=== PATIENT | male | born 1945 | race Caucasian/White ===

== ENCOUNTER 2017-03-08 19:20 | Emergency (ER) | payer MEDICARE, OTHER ==
[~2017-03-08] VITALS: Ht 180.3 cm; Wt 126.5 kg
[2017-03-08] MEDS ORDERED: PRAD75CA3 PO (19:40)
[2017-03-08] MEDS ORDERED: LISI40TAB PO (19:40)
[2017-03-08] MEDS ORDERED: TERA2CAP3 PO (19:40)
[2017-03-08] MEDS ORDERED: METF10004 PO (19:40)
[2017-03-08] MEDS ORDERED: ATOR80TA59 PO (19:40)
[2017-03-08] MEDS ORDERED: GLIP10TA6 PO (19:40)
[2017-03-08] MEDS ORDERED: FOLI1TAB4 PO (19:40)
[2017-03-08] MEDS ORDERED: CARV25TA PO (19:40)
[2017-03-08] MEDS ORDERED: PANTOPRAZOLE 40MG TAB (PROTONIX) PO ONE (20:15)
[2017-03-08] MEDS ORDERED: ASPIRIN 325 MG TAB PO ONE (20:15)
[2017-03-08] MEDS ORDERED: GI COCKTAIL 50ML BTL(HYOSCYAMINE/MAALOX/LIDOCAINE VISCOUS)(1:3:1) PO ONE (20:15)
[2017-03-08 20:20] LABS: BASO % 0.3 % (0.0-1.0); EOS # 0.3 K/mm3 (0.0-0.50); EOS % 4.3 % (0.0-3.0); LARGE UNSTAINED CELL # 0.1 K/mm3 (0.0-0.4); LARGE UNSTAINED CELL % 1.9 % (0.0-4.0); LYMPH # 0.6 K/mm3 (1.5-4.5); LYMPH % 7.9 % (24.0-44.0); MEAN CORPUSCULAR HEMOGLOBIN 29.3 pg (27.0-33.0); MEAN CORPUSCULAR HGB CONC 33.4 g/dl (32.0-36.5); MEAN CORPUSCULAR VOLUME 87.6 fl (80.0-96.0); MONO # 0.4 K/mm3 (0.0-0.8); MONO % 5.6 % (0.0-5.0); NEUTROPHILS # 5.9 K/mm3 (1.8-7.7); PLATELET COUNT, AUTOMATED 243 k/mm3 (150-450); RED CELL DISTRIBUTION WIDTH 13.3 % (11.5-14.5); WHITE BLOOD COUNT 7.3 K/mm3 (4.0-10.0)
[2017-03-08 20:31] LABS: INR 1.48
[2017-03-08 20:34] LABS: ALBUMIN 3.5 GM/DL (3.2-5.2); ALBUMIN/GLOBULIN RATIO 0.78 (1.00-1.93); ALKALINE PHOSPHATASE 87 U/L (45-117); ALT/SGPT 27 U/L (12-78); ANION GAP 10 MEQ/L (8-16); AST/SGOT 17 U/L (15-37); BILIRUBIN,DIRECT 0.2 MG/DL (0.0-0.2); BILIRUBIN,TOTAL 0.7 MG/DL (0.2-1.0); BLOOD UREA NITROGEN 14 MG/DL (7-18); CALCIUM LEVEL 8.8 MG/DL (8.8-10.2); CARBON DIOXIDE LEVEL 26 MEQ/L (21-32); CHLORIDE LEVEL 100 MEQ/L (98-107); CREATININE FOR GFR 1.16 MG/DL (0.70-1.30); FREE T4 1.19 NG/DL (0.76-1.46); GLOMERULAR FILTRATION RATE > 60.0 (>49); GLUCOSE, FASTING 145 MG/DL (80-110); POTASSIUM SERUM 3.7 MEQ/L (3.5-5.1); SODIUM LEVEL 136 MEQ/L (136-145)
[2017-03-08] MEDS ORDERED: ISOVUE-370 76% 100ML VIAL (Q9967) As Ordered ONE (21:33)
--- NOTE | 2017-03-08 22:07 | ECGEPIP ---
Stationary ECG Study [facility] - ED Test Date: 2017-03-08 Pat Name: CHRISTIANO BOBO Department: Room: - Gender: M Assistant Prosecuting Attorney: VickB: 1945 Requested By: LATIA COSBY Order Number: [id number] Reading MD: Romulo Phillips Measurements Intervals [place] Rate: 97 P: [place]: 0 QRS: -4 QRSD: 85 T: -10 QT: 330 QTc: 419 Interpretive Statements ATRIAL FIBRILLATION WITH ABERRANT CONDUCTION OR VENTRICULAR PREMATURE COMPLEXES INFERIOR MYOCARDIAL INFARCTION, OF INDETERMINATE AGE NO PRIORS Electronically Signed On 03-08-2017 22:07:18 EDT by Romulo Phillips
--- NOTE | 2017-03-08 22:40 | REPUSA ---
CT angiogram of the chest Clinical statement: Chest pain. Technique: Multiple axial CT images were obtained from the thoracic inlet through the upper abdomen a fter a bolus administration of nonionic intravenous contrast. Coronal and sagittal reconstructions we re also obtained. No comparison is available. Findings: The pulmonary arteries are well-opacified with contrast, with no intraluminal filling defec ts to suggest embolism. The thoracic aorta is unremarkable. Thyroid gland is within normal limits. Th ere is no thoracic lymphadenopathy. There are no pericardial or pleural effusions. The lungs are maryam r. Limited imaging of the upper abdomen is unremarkable. There are no suspicious osseous lesions. Impression: Unremarkable CT examination of the chest. No evidence of pulmonary embolism.
[2017-03-09] MEDS ORDERED: GI COCKTAIL 50ML BTL(HYOSCYAMINE/MAALOX/LIDOCAINE VISCOUS)(1:3:1) PO ONE (00:15)
[2017-03-09] MEDS ORDERED: PRIL20CA9 PO (01:28)
[2017-03-09 01:52] VITALS: BP 152/70
--- NOTE | 2017-03-09 07:23 | REP ---
Portable chest, single AP view, 08:14 p.m.: There are no comparisons. Four films are clear. Cardiac size is borderline enlarged. The kt, mediastinum, and bony thorax are unremarkable. Impression: There are no acute cardiopulmonary findings. Cardiac size is borderline enlarged. Signed by Bright Mars MD 03/09/2017 07:14 A
--- NOTE | 2017-03-09 08:28 | ECGEPIP ---
Stationary ECG Study [facility] - ED Test Date: 2017-03-08 Pat Name: ERICKA BOBO Department: Room: - Gender: M Punch Hand: : 1945 Requested By: LATIA COSBY Order Number: [id number] Reading MD: Hoa De La Rosa Measurements Intervals [place] Rate: 86 P: [place]: 0 QRS: 3 QRSD: 77 T: -10 QT: 331 QTc: 397 Interpretive Statements ATRIAL FIBRILLATION SEPTAL MYOCARDIAL INFARCTION, PROBABLY OLD POSSIBLE INFERIOR MYOCARDIAL INFARCTION, PROBABLY OLD DECREASED RATE 03/08/17 Electronically Signed On 03-09-2017 8:27:59 EDT by Hoa De La Rosa
== END 2017-03-09 01:54 | disposition home or self-care (01) ==
LOC: M ED 19:20
DX: K21.9 Gastro-esophageal reflux disease without esophagitis (principal); I48.91 Unspecified atrial fibrillation; E11.9 Type 2 diabetes mellitus without complications; I10 Essential (primary) hypertension; E78.5 Hyperlipidemia, unspecified; Z79.899 Other long term (current) drug therapy
CPT/HCPCS: 36415; 71010; 71275; 80048; 80076; 82550; 82553; 83690; 83880; 84439; 84443; 84484; 85025; 85610; 85730; 93005; 93041; 94760; 99285; Q9967

== ENCOUNTER → 2019-06-12 | Outpatient (REF) | payer MEDICARE, OTHER ==
[~2019-06-12] MED LIST: ATOR80TA59 PO; CARV25TA PO; FOLI1TAB11 PO; GLIP10TA6 PO; LISI40TA PO; METF10004 PO; PRAD75CA5 PO; PRIL20CA9 PO; TERA2CAP3 PO
[2019-06-12 16:02] LABS: BASO % 0.5 % (0.0-1.0); EOS # 0.5 10^3/uL (0.0-0.5); EOS % 5.8 % (0.0-3.0); HEMATOCRIT 26.8 % (42.0-52.0); LYMPH # 0.5 10^3/uL (1.5-5.0); LYMPH % 6.6 % (24.0-44.0); MEAN CORPUSCULAR HEMOGLOBIN 27.9 pg (27.0-33.0); MEAN CORPUSCULAR HGB CONC 29.9 g/dl (32.0-36.5); MEAN CORPUSCULAR VOLUME 93.4 fl (80.0-96.0); MONO # 0.7 10^3/uL (0.0-0.8); MONO % 8.7 % (0.0-5.0); NEUTROPHILS # 6.3 10^3/uL (1.5-8.5); NEUTROPHILS % 77.9 % (36.0-66.0); PLATELET COUNT, AUTOMATED 344 10^3/uL (150-450); RED BLOOD COUNT 2.87 10^6/uL (4.30-6.10); WHITE BLOOD COUNT 8.1 10^3/uL (4.0-10.0)
[2019-06-12 16:06] LABS: APPEARANCE, URINE CLEAR (CLEAR); BACTERIA, URINE AUTO NEGATIVE (NEGATIVE); BILIRUBIN, URINE AUTO NEGATIVE (NEGATIVE); BLOOD, URINE BLOOD NEGATIVE (NEGATIVE); COLOR, URINE YELLOW (YELLOW); GLUCOSE, URINE (UA) AUTO NEGATIVE (NEGATIVE); KETONE, URINE AUTO NEGATIVE (NEGATIVE); LEUKOCYTE ESTERASE, URINE AUTO NEGATIVE (NEGATIVE); NITRITE, URINE AUTO NEGATIVE (NEGATIVE); PROTEIN, URINE AUTO NEGATIVE (NEGATIVE); RBC, URINE AUTO 1 /HPF (0-3); SPECIFIC GRAVITY URINE AUTO 1.012 (1.002-1.035); SQUAMOUS EPITHELIAL CELL UR AU 0 /HPF (0-6); WBC, URINE AUTO 0 /HPF (0-3)
[2019-06-12 16:34] LABS: ALBUMIN 2.5 GM/DL (3.2-5.2); ALT/SGPT 36 U/L (12-78); BILIRUBIN,TOTAL 1.4 MG/DL (0.2-1.0); BLOOD UREA NITROGEN 23 MG/DL (7-18); CALCIUM LEVEL 8.6 MG/DL (8.8-10.2); CARBON DIOXIDE LEVEL 31 MEQ/L (21-32); CHLORIDE LEVEL 100 MEQ/L (98-107); CHOLESTEROL LEVEL 115 MG/DL (<200); CHOLESTEROL RISK RATIO 2.254 (<5); CREATININE FOR GFR 1.13 MG/DL (0.70-1.30); GLOMERULAR FILTRATION RATE > 60.0 (>42); GLUCOSE, FASTING 168 MG/DL (70-100); HDL CHOLESTEROL 51 MG/DL (>40); LDL CHOLESTEROL 50 MG/DL (<100); NON-HDL-C 64 MG/DL; SODIUM LEVEL 139 MEQ/L (136-145); TOTAL PROTEIN 7.4 GM/DL (6.4-8.2); TRIGLYCERIDES LEVEL 69 MG/DL (<150)
[2019-06-12 16:41] LABS: CREATININE, URINE 50.6 MG/DL; MALB URINE SIEMENS 18.5 MG/L; MAU/CREAT RATIO 36.5 MCG/MG (0.0-30.0)
[2019-06-12 16:50] LABS: HEMOGLOBIN A1c 7.2 %
[2019-06-14 15:38] LABS: TOTAL PROTEIN,RANDOM URINE 17.7 MG/DL (0.0-12.0)
[2019-06-14 16:47] LABS: ALBUMIN 2.6 GM/DL (3.2-5.2); BLOOD UREA NITROGEN 22 MG/DL (7-18); CALCIUM LEVEL 8.6 MG/DL (8.8-10.2); CARBON DIOXIDE LEVEL 30 MEQ/L (21-32); CHLORIDE LEVEL 101 MEQ/L (98-107); COMPLEMENT C3 157 MG/DL (90-180); COMPLEMENT C4 30 MG/DL (10-40); CREATININE FOR GFR 1.11 MG/DL (0.70-1.30); GLOMERULAR FILTRATION RATE > 60.0 (>42); GLUCOSE, FASTING 173 MG/DL (70-100); PHOSPHORUS LEVEL 3.3 MG/DL (2.5-4.9); SODIUM LEVEL 137 MEQ/L (136-145); TOTAL PROTEIN 7.4 GM/DL (6.4-8.2)
[2019-06-15 09:32] LABS: ALBUMIN 2.95 GM/DL (3.29-5.55); ALBUMIN % 39.9 % (55.8-66.1); ALPHA-1-GLOBULIN % 7.4 % (2.9-4.9); ALPHA-1-GLOBULINS 0.55 GM/DL (0.17-0.41); ALPHA-2-GLOBULINS 0.78 GM/DL (0.42-0.99); ALPHA-2-GLOBULINS % 10.6 % (7.1-11.8); BETA-1-GLOBULINS 0.47 GM/DL (0.28-0.60); BETA-1-GLOBULINS % 6.4 % (4.7-7.2); BETA-2-GLOBULINS 0.72 GM/DL (0.19-0.55); BETA-2-GLOBULINS % 9.7 % (3.2-6.5)
[2019-06-15 09:33] LABS: GAMMA GLOBULINS 1.92 GM/DL (0.65-1.58)
== END ==
LOC: M LAB REF 15:42
PROVIDERS: ATTEND Physician Assistant Medical
DX: E78.5 Hyperlipidemia, unspecified (principal); D63.8 Anemia in other chronic diseases classified elsewhere; E11.9 Type 2 diabetes mellitus without complications; N18.9 Chronic kidney disease, unspecified

== ENCOUNTER 2019-07-28 12:07 | Outpatient (RCR) | payer OTHER, MEDICARE ==
[2019-07-28] MEDS ORDERED: OMEP40CA97 PO (12:45)
[2019-07-28] MEDS ORDERED: D 202000 PO (12:45)
[2019-07-28] MEDS ORDERED: FOLI1TAB11 PO (12:45)
[2019-07-28] MEDS ORDERED: METO25TA4 PO (12:45)
[2019-07-28] MEDS ORDERED: ASPI81TA85 PO (12:45)
[2019-07-28] MEDS ORDERED: COLA100C5 PO (12:45)
[2019-07-28] MEDS ORDERED: NESI12.5 PO (12:45)
[2019-07-28] MEDS ORDERED: SILD25TA2 PO (12:45)
[2019-07-28] MEDS ORDERED: TERA2CAP3 PO (12:45)
[2019-07-28] MEDS ORDERED: FERR325T16 PO (12:45)
[2019-07-28] MEDS ORDERED: WARF-23 PO (12:45)
[2019-07-28] MEDS ORDERED: ATOR40TA75 PO (12:45)
--- NOTE | 2019-07-28 13:46 | CARECAPL ---
Assessment Account #s: Initial Assessment General Diagnoses: AVR Date of event: May 18, 2019 Physician: Zhen Honeycutt Allergies: Coded Allergies: No Known Allergies (Unverified , 03/08/17) Date Entered Program: Jul 28, 2019 Risk strat for cardiac event: Moderate Exercise Date: Jul 28, 2019 Assessment: Initial Assessment Stages of change: Contemplate Exercise Prescription Plan to build strength and endurance through a monitored exercise program and provide education to lower the risk of cardiac disease Modalities initiated: Treadmill (will add), Nustep (will add), Arm Aerometer (will add), Dumbells (will add), Recumbent Bike (will add) Frequency: 2-3 Duration (Minutes) 30 - 60 minutes total exercise a day. 15 - 20 work intervals in minutes. PRN rest intervals in minutes. Functional Capacity Goal Sustained Metabolic Equivalent of a task (MET) goal of 2.5-3.5 for 15-20 minutes. Progression (METS) Increase by: .5 METS every: 2-3 sessions Angina with ex: No Target Heart Rate rest + 35-40 betablocker therapy Resistance Training: Yes Reps: 6-8 Hypertension: Yes Hypertension controlled with: Medication Resting 175/76 Meds see below Medications Scheduled Alogliptin Benzoate (Nesina), 12.5 MG PO DAILY, (Reported) Aspirin (Aspir 81), 81 MG PO DAILY, (Reported) Atorvastatin Calcium (Atorvastatin Calcium), 40 MG PO DAILY, (Reported) Cholecalciferol (Vitamin D3) (Vitamin D3), 2,000 UNIT PO DAILY, (Reported) Docusate Sodium (Colace), 100 MG PO DAILY, (Reported) Ferrous Gluconate (Ferrous Gluconate), 324 MG PO BID, (Reported) Folic Acid (Folic Acid), 1 MG PO DAILY, (Reported) Metformin HCl (Metformin HCl), 1,000 MG PO BID, (Reported) Metoprolol Tartrate (Metoprolol Tartrate), 25 MG PO BID, (Reported) Omeprazole (Omeprazole), 40 MG PO DAILY, (Reported) Sildenafil Citrate (Sildenafil Citrate), 25 MG PO ASDIRECTED, (Reported) Terazosin HCl (Terazosin HCl), 2 MG PO QHS, (Reported) Warfarin Sodium (Warfarin Sodium), 5 MG PO DAILY, (Reported) Discontinued Medications Atorvastatin Calcium (Atorvastatin Calcium), 80 MG PO DAILY, (Reported) Discontinued Reason: Pt states not taking Carvedilol (Carvedilol), 25 MG PO BID, (Reported) Discontinued Reason: Pt states not taking Dabigatran Etexilate Mesylate (Pradaxa), 75 MG PO DAILY, (Reported) Discontinued Reason: Pt states not taking Folic Acid (Folic Acid), 1 MG PO DAILY, (Reported) Discontinued Reason: Pt states not taking Glipizide (Glipizide), 10 MG PO BID, (Reported) Discontinued Reason: Pt states not taking Lisinopril (Lisinopril), 40 MG PO DAILY, (Reported) Discontinued Reason: Pt states not taking Omeprazole (Prilosec), 20 MG PO Q12H Discontinued Reason: Pt states not taking Terazosin HCl (Terazosin HCl), 4 MG PO DAILY, (Reported) Discontinued Reason: Pt states not taking Target Goals Individual exercise Rx (1) BP 140/90 or 130/80 if DM or CKD (1) Aerobic active 30+min 5 days per week (1) Nutrition Date: Jul 28, 2019 Assessment: Initial Assessment Stages of change: Contemplate Lipid- med/supplement lipitor Diabetes Diabetes: Yes HbA1c (%): 7.1 Diabetes medication metformin Monitor Blood Sugar at home: Yes Weight Management Weight (lbs): 222 Height (inches): 71 Waist Circumference (Inches): 42 BMI: 31 Special Diet: low salt, mediteranean diet, regular Vitamin/Supplements: Vitamin D Alcohol: none Diet Access Tool: Rate your plate Score: 55 Target goal LDL-C<100 if triglycerides are >200 Non-HDL-C should be <130 (1) LDL-C<70 for high risk patients (4) HbA1c<7% (1) BMI<25 Waist cir<40in M/<35in F (1) Education Date: Jul 28, 2019 Assessment: Initial Assessment Knowledge Test Score: 7 Stages of change: Contemplate Family Support: Yes Quit: >6 months (quit 1998) Intervention Referral to smoking cessation: No Individual education and couns: No Tobacco Adjunct: No Target Goals Complete cessation of tobacco use (1). Psychosocial Date: Jul 28, 2019 Assessment: Initial Assessment Psych Test (Initial/Discharge) Tool Used: Other Score: 0 Stages of change: action Intervention Physician Consult: No Physician Referral: No Target Goal Assess presence or absence of depression using a valid screening tool (1). Maximize coping skills (2). Positive support system (2). Patient/Program Goal Preventative Medication: Yes Aspirin, Yes Beta blockade, Yes Statin/OTR lipid Lowering Fall Risk Assess: No Provider Assessment Provider Assessment: Proceed with rehab Theresa Lazcano RN Jul 28, 2019 13:32
== END 2019-08-08 ==
LOC: M CR 12:07
PROVIDERS: ATTEND Student in an Organized Health Care Education/Training Program
DX: Z95.3 Presence of xenogenic heart valve (principal)

== ENCOUNTER → 2019-08-29 | Outpatient (CLI) | payer OTHER ==
[~2019-08-29] MED LIST changes: +ASPI81TA85 PO; +ATOR40TA75 PO; +COLA100C5 PO; +D 202000 PO; +FERR325T16 PO; +METO25TA4 PO; +NESI12.5 PO; +OMEP40CA97 PO; +SILD25TA2 PO; +WARF-23 PO
--- NOTE | 2019-08-30 02:57 | REP ---
Clinical: Evaluate for metastatic disease. Technique: 16 total views of the axial and appendicular osseous structures. Findings: Skull: AP and lateral views without focal abnormality. Cervical spine: AP and lateral views demonstrate moderate spondylosis without focal abnormality. Right/left humerus: AP views demonstrate degenerative changes at the shoulder and elbow without focal abnormality. Thoracic spine: AP and lateral views demonstrate degenerative changes without acute fracture / compression injury or subluxation and no obvious focal abnormality. Lumbar spine: AP and lateral views demonstrate moderate multilevel degenerative changes. Alignment maintained. No acute fracture / compression injury or subluxation. No focal abnormality. Pelvis: AP view demonstrates age-related degenerative changes without focal abnormality. Right/left femur: AP views demonstrate age-related degenerative changes at the hips and knee joints without focal abnormality. Impression: Multilevel degenerative changes noted. No evidence for pathologic lesion. Electronically Signed by Abiodun Lipscomb MD 08/30/2019 02:48 A
== END ==
LOC: M RAD 10:30
DX: D64.9 Anemia, unspecified (principal)

== ENCOUNTER → 2019-08-31 | Outpatient (REF) | payer OTHER ==
[2019-09-01 13:34] LABS: TOTAL PROTEIN,RANDOM URINE 19.1 MG/DL (0.0-12.0); URINE TOTAL PROTEIN 19.1 MG/DL (0-12)
[2019-09-05 02:02] LABS: TOTAL PROTEIN 24 HOUR URINE 233.9 MG/24HR (50-150); TOTAL VOLUME, URINE 1225 ML
== END ==
LOC: M LAB REF 12:53
PROVIDERS: ATTEND Internal Medicine Hematology & Oncology
DX: D64.9 Anemia, unspecified (principal)

== ENCOUNTER → 2019-09-26 | Outpatient (CLI) | payer OTHER ==
[~2019-09-26] MED LIST changes: +GASTROGRAFIN SOLUTION 30ML (Q9963) As Ordered ONE; +ISOVUE-370 76% 100ML VIAL (Q9967) As Ordered ONE
--- NOTE | 2019-09-26 11:01 | REP ---
Clinical: IgM monoclonal gammopathy read Technique: Axial contrast enhanced images from the thoracic inlet to the upper abdomen with coronal and sagittal re-formations using 100 ml Isovue 370 intravenous contrast material. Comparison: 03/08/2017. Findings: Moderate mediastinal and bilateral hilar adenopathy is appreciated. Precarinal lymph node measures 2.3 cm maximal diameter. Thoracic aorta, pulmonary vasculature and heart/pericardium are relatively normal atherosclerotic changes noted. No pericardial effusion. The lung gutiérrez demonstrate diffuse interstitial prominence along with subpleural fibrosis, mild bilateral circumferential pleural thickening and small right pleural effusion along with trace right basilar atelectasis. Musculoskeletal structures demonstrate degenerative changes without obvious acute focal abnormality. Impression: 1. Moderate mediastinal and hilar adenopathy. 2. Diffusely increased interstitial markings along with mild circumferential bilateral pleural thickening, small right pleural reaction and trace right atelectasis. Electronically Signed by Abiodun Lipscomb MD 09/26/2019 10:52 A
--- NOTE | 2019-09-26 11:05 | REP ---
Clinical: IgM monoclonal gammopathy. Technique: Axial contrast enhanced images from the lung bases to the pubic symphysis using oral (per protocol) and 100 ml Isovue 370 intravenous contrast material with coronal and sagittal re-formations. Findings: Mild hepatomegaly noted without focal hepatic lesion identified. Spleen, pancreas, gallbladder, bilateral adrenal glands and kidneys are essentially normal. 9 mm right renal cyst noted. The enteric system is without obstruction or acute inflammatory process. Normal terminal ileum and appendix identified in the right lower quadrant. Diffuse colonic and sigmoid diverticulosis noted without acute diverticulitis. Pelvis demonstrates normal bladder and age appropriate prostate/seminal vesicles. There is hazy edematous appearance to the central mesenteric fat with mildly prominent lymph nodes measuring up to approximately 11.6 mm. No abdominal pelvic mass lesion or ascites. No retroperitoneal or pelvic adenopathy noted. Atherosclerotic changes to the aorta and vasculature noted without aneurysm or dissection. Musculoskeletal structures demonstrate degenerative changes without focal osseous abnormality. Impression: 1. Mild hepatomegaly. 2. Hazy edematous changes to the central mesentery and few mildly prominent mesenteric lymph nodes up to 11.6 mm. 3. Diverticulosis. Electronically Signed by Abiodun Lipscomb MD 09/26/2019 10:56 A
== END ==
LOC: M RAD 07:43
PROVIDERS: ATTEND Internal Medicine Hematology & Oncology
DX: D47.2 Monoclonal gammopathy (principal)
CPT/HCPCS: 71260; 74178; Q9963; Q9967

== ENCOUNTER 2019-10-22 01:45 | Emergency (ER) | payer MEDICARE, OTHER ==
[~2019-10-22] VITALS: Ht 180.3 cm; Wt 100.0 kg
[~2019-10-22 01:45] MED LIST changes: -GASTROGRAFIN SOLUTION 30ML (Q9963) As Ordered ONE; -ISOVUE-370 76% 100ML VIAL (Q9967) As Ordered ONE
[2019-10-22 03:20] LABS: BASO % 0.5 % (0.0-1.0); EOS % 0.6 % (0.0-3.0); HEMOGLOBIN 10.1 g/dl (13.5-17.5); LYMPH # 0.3 10^3/uL (1.5-5.0); LYMPH % 4.8 % (24.0-44.0); MEAN CORPUSCULAR HEMOGLOBIN 27.9 pg (27.0-33.0); MEAN CORPUSCULAR HGB CONC 30.6 g/dl (32.0-36.5); MEAN CORPUSCULAR VOLUME 91.2 fl (80.0-96.0); MONO # 0.6 10^3/uL (0.0-0.8); MONO % 8.9 % (0.0-5.0); NEUTROPHILS # 5.7 10^3/uL (1.5-8.5); PLATELET COUNT, AUTOMATED 175 10^3/uL (150-450); RED BLOOD COUNT 3.62 10^6/uL (4.30-6.10); WHITE BLOOD COUNT 6.7 10^3/uL (4.0-10.0)
[2019-10-22 03:51] LABS: ALBUMIN 3.5 GM/DL (3.2-5.2); BILIRUBIN,DIRECT 2.2 MG/DL (0.0-0.2); BILIRUBIN,TOTAL 2.8 MG/DL (0.2-1.0)
[2019-10-22] MEDS ORDERED: ISOVUE-370 76% 100ML VIAL (Q9967) As Ordered ONE (04:00)
[2019-10-22] MEDS ORDERED: GI COCKTAIL 50ML BTL(HYOSCYAMINE/MAALOX/LIDOCAINE VISCOUS)(1:3:1) PO ONE (04:00)
--- NOTE | 2019-10-22 04:54 | REPVR ---
PROCEDURE INFORMATION: Exam: CT Abdomen And Pelvis With Contrast Exam date and time: 10/22/2019 3:55 AM Age: 74 years old Clinical indication: Abdominal pain; Epigastric; Additional info: Epigastric pain TECHNIQUE: Imaging protocol: Computed tomography of the abdomen and pelvis with intravenous contrast. Radiation optimization: All CT scans at this facility use at least one of these dose optimization techniques: automated exposure control; mA and/or kV adjustment per patient size (includes targeted exams where dose is matched to clinical indication); or iterative reconstruction. Contrast material: ISO; Contrast volume: 100 ml; Contrast route: AC; COMPARISON: CT ABD PELVIS W/O FOL BY WIT 09/26/2019 9:33 AM FINDINGS: Limitations: Left lateral abdominal wall is partially cut off the film. Lungs: Diffuse interlobular septal thickening. Pleural space: Mild right pleural effusion. Coronary arteries: Severe coronary artery calcification. Liver: Hypodense lesion in the left hepatic lobe which is not fully characterized measuring 5 mm. Gallbladder and bile ducts: Mild gallbladder wall thickening. No biliary ductal dilatation. Pancreas: Normal. No ductal dilation. Spleen: Normal. No splenomegaly. Adrenals: Normal. No mass. Kidneys and ureters: Normal. No hydronephrosis. Stomach and bowel: Copious stool in the colon. Colonic diverticulosis without diverticulitis. No abnormal bowel dilatation. No abnormal bowel wall thickening. Appendix: Appendix is normal. Intraperitoneal space: Small free fluid in the pelvis. Mild haziness of the mesentery. Free air. Vasculature: No aortic aneurysm. Severe calcified atherosclerotic disease. Lymph nodes: Unremarkable. No enlarged lymph nodes. Bladder: Unremarkable as visualized. Reproductive: Prostate is normal in size. Bones/joints: Moderate degenerative spine. No acute fracture. Mild degenerative changes of the right hip. Mild degenerative changes of the left hip. Soft tissues: There is dependent subcutaneous edema. Small umbilical hernia containing fat. There is no evidence of strangulation. IMPRESSION: 1. Mild gallbladder wall thickening. Hepatic venous congestion versus cholecystitis. 2. Small hypodense lesion in the left hepatic lobe. Too small to characterize. No change from prior. In a low-risk patient, this lesion is most likely to be benign and no further follow-up is recommended. In a high-risk patient, recommend follow-up MRI in 3-6 months (or earlier if warranted by the patient's specific clinical circumstances). 3. Mild haziness of the mesentery. Unknown etiology. Unchanged from prior. 4. Small free fluid in the pelvis. 5. Diffuse interlobular septal thickening in the lungs. Suspect pulmonary edema. Unchanged from prior. 6. Mild right pleural effusion. Unknown etiology. 7. No findings as described. Electronically signed by: Homa Morales On 10/22/2019 04:53:42 AM
--- NOTE | 2019-10-22 04:58 | REPVR ---
PROCEDURE INFORMATION: Exam: US Abdomen Limited, Right Upper Quadrant Exam date and time: 10/22/2019 4:24 AM Age: 74 years old Clinical indication: Abdominal pain; Epigastric; Additional info: Epigastric pain, elevated liver enzymes TECHNIQUE: Imaging protocol: Real-time ultrasound of the abdomen with image documentation. Examination was focused on the right upper quadrant. COMPARISON: CT ABD/PEL W/IV CONTRAST ONLY 10/22/2019 4:04 AM FINDINGS: Liver: Hepatomegaly. Liver measures approximately 18 cm in the midclavicular plane. No hepatics masses evident. Gallbladder: Diffuse gallbladder wall thickening. Negative Estrada sign. Sludge in the gallbladder. Nonshadowing polypoid lesion in the anterior gallbladder wall measuring 4.1 mm. No shadowing stones. Common bile duct: CBD measures 8.1 mm in diameter. Pancreas: Not visualized. Right kidney: No right hydronephrosis. Right kidney measures 15.3 cm in length. No renal masses. Intraperitoneal space: No free fluid. IMPRESSION: 1. Diffuse gallbladder wall thickening with sludge. Possible portal venous hypertension acalculous cholecystitis. 2. Polypoid lesion in the anterior gallbladder wall. Polyp versus sludge ball. 3. Hepatomegaly. Electronically signed by: Homa Morales On 10/22/2019 04:57:48 AM
[2019-10-22] MEDS ORDERED: LEVS0.124 SL ×2 (05:45→06:34)
[2019-10-22 06:00] VITALS: BP 166/86
[2019-10-22] MEDS ORDERED: HYOSCYAMINE SULFATE 0.125 MG SUBL TABLET PO ONE (06:00)
--- NOTE | 2019-10-22 14:42 | ED PDOC ---
Post-Departure Follow-Up [facility] faxed formal report of ct abd/p for fu Suyapa Abreu MD Oct 22, 2019 14:42
--- NOTE | 2019-10-22 14:43 | ED PDOC ---
Post-Departure Follow-Up [facility] also faxed to [facility] for fu Suyapa Abreu MD Oct 22, 2019 14:43
== END 2019-10-22 06:23 | disposition home or self-care (01) ==
LOC: M ED 01:45
DX: K80.50 Calculus of bile duct without cholangitis or cholecystitis without obstruction (principal); R11.0 Nausea; E11.9 Type 2 diabetes mellitus without complications; I11.9 Hypertensive heart disease without heart failure; I25.10 Atherosclerotic heart disease of native coronary artery without angina pectoris; Z79.899 Other long term (current) drug therapy; Z79.84 Long term (current) use of oral hypoglycemic drugs; Z79.82 Long term (current) use of aspirin; Z79.01 Long term (current) use of anticoagulants
CPT/HCPCS: 74177; 76705; 80047; 80076; 83690; 85025; 93041; 99284; Q9967

== ENCOUNTER 2020-01-12 11:43 | Inpatient (IN) | payer OTHER, MEDICARE ==
[~2020-01-12] VITALS: Ht 177.8 cm; Wt 93.1 kg
[~2020-01-12 11:43] MED LIST changes: +LEVS0.124 SL
[2020-01-12 12:26] LABS: BASO # 0.1 10^3/uL (0.0-0.2); BASO % 1.2 % (0.0-1.0); EOS # 0.5 10^3/uL (0.0-0.5); EOS % 6.6 % (0.0-3.0); HEMATOCRIT 29.5 % (42.0-52.0); HEMOGLOBIN 9.2 g/dl (13.5-17.5); LYMPH # 0.5 10^3/uL (1.5-5.0); LYMPH % 6.3 % (24.0-44.0); MEAN CORPUSCULAR HEMOGLOBIN 28.6 pg (27.0-33.0); MEAN CORPUSCULAR HGB CONC 31.2 g/dl (32.0-36.5); MEAN CORPUSCULAR VOLUME 91.6 fl (80.0-96.0); MONO # 0.7 10^3/uL (0.0-0.8); MONO % 8.5 % (0.0-5.0); NEUTROPHILS # 5.9 10^3/uL (1.5-8.5); PLATELET COUNT, AUTOMATED 204 10^3/uL (150-450); RED BLOOD COUNT 3.22 10^6/uL (4.30-6.10); WHITE BLOOD COUNT 7.6 10^3/uL (4.0-10.0)
[2020-01-12] MEDS ORDERED: FUROSEMIDE 40MG/4ML VIAL (J1940) IV ONE (12:45)
[2020-01-12 12:59] LABS: BLOOD UREA NITROGEN 12 MG/DL (7-18); CALCIUM LEVEL 8.2 MG/DL (8.8-10.2); CARBON DIOXIDE LEVEL 27 MEQ/L (21-32); CHLORIDE LEVEL 105 MEQ/L (98-107); CK-MB VALUE MASS < 1.0 NG/ML (<3.6); CPK CREATINE PHOSPHOKINASE 42 U/L (39-308); CREATININE FOR GFR 0.99 MG/DL (0.70-1.30); GLOMERULAR FILTRATION RATE > 60.0 (>42); GLUCOSE, FASTING 113 MG/DL (70-100); MB/CK RELATIVE INDEX 2.38 (< OR =4); NT-PRO BNP 8840 PG/ML (<125); POTASSIUM SERUM 3.6 MEQ/L (3.5-5.1); SODIUM LEVEL 139 MEQ/L (136-145); TROPONIN I < 0.02 NG/ML (< 0.10)
[2020-01-12] MEDS ORDERED: METO50TA7 PO (13:14)
[2020-01-12] MEDS ORDERED: TEMO0.0517 TOP (13:14)
[2020-01-12] MEDS ORDERED: WARF-18 PO ×2 (13:14)
[2020-01-12] MEDS ORDERED: ATOR80TA59 PO (13:14)
[2020-01-12] MEDS ORDERED: SILD50TA8 PO (13:14)
[2020-01-12] MEDS ORDERED: ACET1TAB55 PO (13:14)
[2020-01-12] MEDS ORDERED: ASCO500T PO (13:14)
[2020-01-12] MEDS ORDERED: VITAD1000T PO (13:15)
[2020-01-12] MEDS ORDERED: DEXTROSE 50% 50 ML SYRINGE IV PRN (14:00)
[2020-01-12] MEDS ORDERED: GLUCOSE 4GM CHEW TABLET PO PRN (14:00)
[2020-01-12] MEDS ORDERED: GLUCAGON INJ 1MG VIAL SC PRN (14:00)
[2020-01-12 14:14] LABS: INR 2.51; PROTHROMBIN TIME 26.9 SECONDS (11.8-14.0)
--- NOTE | 2020-01-12 14:43 | REP ---
CHEST, SINGLE VIEW: Single view of the chest is performed. There is moderate cardiomegaly. Mediastinal silhouette is unchanged since 03/08/2017. There are diffuse bilateral infiltrates. This may represent pulmonary edema. There may be small pleural effusions. Electronically Signed by Bright Caldwell MD 01/15/2020 09:57 P
--- NOTE | 2020-01-12 14:53 | HPEPDOC ---
General Date of Admission Jan 12, 2020 at 13:42 Date of Service: Jan 12, 2020 Chief Complaint The patient is a 74-year-old male admitted with a reason for visit of Anemia,Chf Exacerbation. Source: Patient, RN/MD History of Present Illness 74 year old male with PMH of TAVR in 2019, chronic Anemia, Vit B12 def, Iron de, IgM lamda gammopathy, ? Afib on coumadin, Hypertension, Hyperlipidemia, Diabetes presented to the ED for Shortness of breath. He has been having progressively increasing shortness of breath for the past 1 week and he has also noticed that his legs have been swollen more than usual. Breathing is worse on exertion. Denied any chest pain / pressure. he does have some cough intermittently. He went to his [facility] at [facility] today had a CXR done and was advised to come to the ED. Here CXR consistent with CHF pattern. He isw admitted for CHF exacerbation. Home Medications Scheduled Alogliptin Benzoate (Nesina) 12.5 Mg Tablet, 12.5 MG PO DAILY, (Reported) Ascorbic Acid (Ascorbic Acid) 500 Mg Tablet, 500 MG PO DAILY, (Reported) Aspirin (Aspir 81) 81 Mg Tablet.dr, 81 MG PO DAILY, (Reported) Atorvastatin Calcium (Atorvastatin Calcium) 80 Mg Tablet, 40 MG PO QHS, (Reported) Cholecalciferol (Vitamin D3) (Vitamin D3) 1,000 Unit Tablet, 2,000 UNITS PO DAILY, (Reported) Docusate Sodium (Colace) 100 Mg Capsule, 100 MG PO DAILY, (Reported) Ferrous Gluconate (Ferrous Gluconate) 324 Mg Tablet, 324 MG PO BID, (Reported) Folic Acid (Folic Acid) 1 Mg Tablet, 1 MG PO DAILY, (Reported) Metformin HCl (Metformin HCl) 1,000 Mg Tab, 1,000 MG PO BIDWM, (Reported) Metoprolol Tartrate (Metoprolol Tartrate) 50 Mg Tablet, 50 MG PO BID, (Reported) Omeprazole (Omeprazole) 40 Mg Capsule.dr, 40 MG PO DAILY, (Reported) Terazosin HCl (Terazosin HCl) 2 Mg Capsule, 4 MG PO QHS, (Reported) Warfarin Sodium (Warfarin Sodium) 2.5 Mg Tablet, 5 MG PO 5XW, (Reported) SUN/MON/WED/FRI/SAT AT 1700 Warfarin Sodium (Warfarin Sodium) 2.5 Mg Tablet, 7.5 MG PO 2XW, (Reported) TUE/THURS AT 1700 Scheduled PRN Acetaminophen (Acetaminophen) 325 Mg Tablet, 650 MG PO Q4H PRN for PAIN, (Reported) Clobetasol Propionate (Temovate) 15 Gm Oint...g., 1 APLCT TOP BID PRN for ITCHING, (Reported) APPLY TO ELBOW/BUTOCKS Sildenafil Citrate (Sildenafil Citrate) 50 Mg Tablet, 25 MG PO ASDIRECTED PRN for ERECTILE DYSFUNCTION, (Reported) Allergies Coded Allergies: No Known Allergies (Unverified , 10/22/19) Past Medical History Medical History s/p TAVR in May 2019, chronic Anemia, Vit B12 def, Iron de, IgM lamda gammopathy, Afib on coumadin, Hypertension, Hyperlipidemia, Diabetes, Gerd Surgical History TAVR, left knee growth removal at age 9, anal fissure surgery many years ago. Family History Significant Family History: Diabetes (juvenile Dm in 1 brother), Heart disease (brothers), Vascular disease (in Brother) Social History * Smoker: Denies Alcohol: Denies Drugs: denies A-FIB/CHADSVASC A-FIB History Current/History of A-Fib/PAF?: Yes Current PO Anticoag Therapy: Yes Review of Systems Constitutional: Denies: Chills, Fever, Night Sweats Eyes: Denies: Pain, Vision change ENT: Denies: Head Aches, Ear Pain, Dysphagia Skin: Denies: Rash, Lesions, Breakdown Pulmonary: Reports: Dyspnea, Cough Cardiovascular: Reports: Edema Gastrointestinal: Denies: Nausea, Vomiting, Abdominal Pain, Diarrhea Genitourinary: Reports: Frequency; Denies: Dysuria, Incontinence, Retention Hematologic: Denies: Bruising, Bleeding Excessively Musculoskeletal: Denies: Neck Pain, Back Pain, Joint Pain, Muscle Pain, Spasms Physical Examination General Exam: Positive: Alert, Cooperative, No Acute Distress Eye Exam: Positive: PERRLA, Conjunctiva & lids normal, EOMI; Negative: Sclera icteric ENT Exam: Positive: Atraumatic, Mucous membr. moist/pink, Pharynx Normal Neck Exam: Positive: Supple, JVD Chest Exam: Positive: Other (bilateral crackles extending up to the mid chest at sarah back) Heart Exam: Positive: Rate Normal, Regular Rhythm, Normal S1, Normal S2 Telemetry: Positive: No significant arrhythmia Abdomen Exam: Positive: Normal bowel sounds, Soft; Negative: Tenderness, Hepatospenomegaly Extremity Exam: Positive: Edema (3+); Negative: Clubbing, Cyanosis Skin Exam: Positive: Nl turgor and temperature; Negative: Breakdown, Lesion Neuro Exam: Positive: Normal Speech, Strength at 5/5 X4 ext, Normal Tone Vital Signs Vital Signs Date Time Temp Pulse Resp B/P (MAP) Pulse Ox O2 Delivery O2 Flow Rate FiO2 01/12/20 13:58 92 85 01/12/20 13:01 150/65 (93) 01/12/20 12:19 Room Air 01/12/20 11:43 99.1 22 Laboratory Data Labs 24H Laboratory Tests 2 01/12/20 12:10: Prothrombin Time 26.9H, Prothromb Time International Ratio 2.51 01/12/20 12:14: Immature Granulocyte % (Auto) 0.4, Neutrophils (%) (Auto) 77.0H, Lymphocytes (%) (Auto) 6.3L, Monocytes (%) (Auto) 8.5H, Eosinophils (%) (Auto) 6.6H, Basophils (%) (Auto) 1.2H, Neutrophils # (Auto) 5.9, Lymphocytes # (Auto) 0.5L, Monocytes # (Auto) 0.7, Eosinophils # (Auto) 0.5, Basophils # (Auto) 0.1, Nucleated Red Blood Cells % (auto) 0.0, Anion Gap 7L, Glomerular Filtration Rate > 60.0, Lactic Acid Level 1.4, Calcium Level 8.2L, Total Creatine Kinase 42, Creatine Kinase MB < 1.0, Creatine Kinase MB Relative Index 2.38, Troponin I < 0.02, YB-Ine-G-Type Natriuretic Peptide 8840H, Thyroid Stimulating Hormone (TSH) 2.690 01/12/20 12:22: POC pH (Misc Panel) 7.445, POC Base Excess (Misc Panel) -2.0, POC Saturated Percent O2 (Misc) 91L, POC pO2 (Misc Panel) 57.0L, POC pCO2 (Misc Panel) 32.2L, POC HCO3 (Misc Panel) 22.1, POC Total CO2 (Misc Panel) 23.0 CBC/BMP Laboratory Tests 01/12/20 12:14 Microbiology Microbiology 01/12/20 Blood Culture, Received Pending 01/12/20 Blood Culture, Received Pending Assessment/Plan 74 year old male with PMH of TAVR in 2019, chronic Anemia, Vit B12 def, Iron def, IgM lamda gammopathy, Afib on coumadin, Hypertension, Hyperlipidemia, Diabetes presented to the ED for Shortness of breath. He has been having progressively increasing shortness of breath for the past 1 week and he has also noticed that his legs have been swollen more than usual. Breathing is worse on exertion. Denied any chest pain / pressure. he does have some cough intermittently. He went to his PMD at the [facility] today for a CXRas he was dyspniec for a week. After it was done he was advised to come to the ED. Here CXR consistent with CHF pattern. He was admitted for CHF exacerbation. CHF exacerbation Last echo from Jun 2019 at [facility] showed normal LV systolic function with EF of 60% to 65%. will get new echo. IV lasix, fluid restriction, 2 gm sodium diet, Daily weight , I/O Paroxysmal A fib now in sinus on Coumadin and metoprolol. will check INR Hypertension continue home meds metoprolol, asa. Diabetes hold metformin lispro sliding scale BPH terazosin GERD PPI Chronic anemia hh stable, may be a little lower due to hs fluid overload. follows with hematology Has Plasma cell dyscrasia, iron def and vit B12 def. Plan / VTE VTE Prophylaxis Ordered?: Yes LINDA WELCH MD Jan 12, 2020 14:53
[2020-01-12 16:40] VITALS: BP 148/67
[2020-01-12] MEDS: HumaLOG INSULIN (NovoLOG) PER UNIT SC SCH ×2 (17:42→20:42)
[2020-01-12] MEDS: WARFARIN SOD 5MG TAB PO SCH (17:42)
[2020-01-12] MEDS: FUROSEMIDE 40MG/4ML VIAL (J1940) IV SCH (20:40)
[2020-01-12] MEDS: TERAZOSIN 1 MG CAP PO SCH (20:41)
[2020-01-12] MEDS: METOPROLOL TART 50 MG TAB PO SCH (20:41)
[2020-01-12] MEDS: FERROUS GLUCONATE 324 MG TAB PO SCH (20:41)
[2020-01-12] MEDS: ATORVASTATIN 20 MG TAB PO SCH (20:41)
[2020-01-12] MEDS: DOCUSATE SODIUM 100 MG CAP PO SCH (20:41)
[2020-01-12 22:00] VITALS: BP 138/62
[2020-01-13 05:16] VITALS: BP 134/60
[2020-01-13] MEDS: FUROSEMIDE 40MG/4ML VIAL (J1940) IV SCH ×3 (05:19→21:02)
[2020-01-13 06:00] VITALS: BP 129/64
--- NOTE | 2020-01-13 06:26 | ECGEPIP ---
[facility] - ED Test Date: 2020-01-12 Pat Name: CHRISTIANO BOBO Department: Room: [place] [address] Gender: Male Enrichment Assistant: angelita : 1945 Requested By: Romulo Greer Order Number: [id number] Reading MD: Suyapa Kuhn Measurements Intervals [place] Rate: 70 P: 25 VT: 179 QRS: -5 QRSD: 74 T: 20 QT: 389 QTc: 421 Interpretive Statements PROBABLE SINUS RHYTHM WITH OCCASIONAL ECTOPIC PREMATURE COMPLEXES POSSIBLE ANTERIOR MYOCARDIAL INFARCTION, OF INDETERMINATE AGE POSSIBLE INFERIOR MYOCARDIAL INFARCTION, PROBABLY OLD BASELINE ARTIFACT MAY AFFECT READING NONSPECIFIC ST T WAVE CHANGES CW 03/08/17 RATE DECREASE POSSIBLE RHYTHM CHANGE - BASELINE ARTIFACT MAKING IT DIFFICULT TO DEFINITELY STA STATE SINUS NONSPECIFIC ST T WAVE CHANGES RECOMMEND REPEAT ECG TO OBTAIN CLEAR BASELINE Electronically Signed on 01-13-2020 6:25:48 EDT by Suyapa Kuhn
[2020-01-13 07:17] LABS: BASO # 0.1 10^3/uL (0.0-0.2); BASO % 0.7 % (0.0-1.0); EOS # 0.7 10^3/uL (0.0-0.5); EOS % 10.2 % (0.0-3.0); HEMATOCRIT 28.5 % (42.0-52.0); HEMOGLOBIN 9.1 g/dl (13.5-17.5); LYMPH # 0.5 10^3/uL (1.5-5.0); LYMPH % 7.6 % (24.0-44.0); MEAN CORPUSCULAR HEMOGLOBIN 28.4 pg (27.0-33.0); MEAN CORPUSCULAR HGB CONC 31.9 g/dl (32.0-36.5); MEAN CORPUSCULAR VOLUME 89.1 fl (80.0-96.0); MONO # 0.7 10^3/uL (0.0-0.8); MONO % 10.3 % (0.0-5.0); NEUTROPHILS % 71.1 % (36.0-66.0); PLATELET COUNT, AUTOMATED 219 10^3/uL (150-450)
[2020-01-13] MEDS: HumaLOG INSULIN (NovoLOG) PER UNIT SC SCH ×4 (07:30→21:00)
[2020-01-13 07:42] LABS: BLOOD UREA NITROGEN 13 MG/DL (7-18); CALCIUM LEVEL 8.4 MG/DL (8.8-10.2); CARBON DIOXIDE LEVEL 29 MEQ/L (21-32); CHLORIDE LEVEL 102 MEQ/L (98-107); CREATININE FOR GFR 0.97 MG/DL (0.70-1.30); GLOMERULAR FILTRATION RATE > 60.0 (>42); GLUCOSE, FASTING 94 MG/DL (70-100); POTASSIUM SERUM 3.2 MEQ/L (3.5-5.1); SODIUM LEVEL 140 MEQ/L (136-145)
[2020-01-13] MEDS: FERROUS GLUCONATE 324 MG TAB PO SCH ×2 (08:19→21:02)
[2020-01-13] MEDS: ASPIRIN 81 MG ENTERIC TAB PO SCH (08:19)
[2020-01-13] MEDS: DOCUSATE SODIUM 100 MG CAP PO SCH ×2 (08:21→21:02)
[2020-01-13] MEDS: POTASSIUM CHLORIDE 10 MEQ SR TABLET PO SCH (08:21)
[2020-01-13] MEDS: FOLIC ACID 1 MG TAB PO SCH (08:21)
[2020-01-13] MEDS: OMEPRAZOLE 20 MG CAP PO SCH (08:21)
[2020-01-13] MEDS: ASCORBIC ACID 500 MG TAB PO SCH (08:21)
[2020-01-13] MEDS: METOPROLOL TART 50 MG TAB PO SCH ×2 (08:22→21:03)
[2020-01-13 14:00] VITALS: BP 144/63
--- NOTE | 2020-01-13 18:11 | IPNPDOC ---
Text Note Date of Service The patient was seen on 01/13/20. NOTE TIME OF SERVICE: 905AM Subjective: The parts that his shortness of breath and leg swelling have improved Objective: GEN: NAD CVS: RRR/NMRG LUNGS: CTAB on RA NEURO: CN II to 12 grossly intact. MSK: Trace bilateral lower extremity edema PSYCH: A&O Vitals and labs: see below Assessment: Mr. Muñiz is a 74-year-old with a history of TAVR in 2019, Vit B12 def, Iron de, IgM gammopathy, Parox Afib, HTN, dyslipidemia, & NIDDM who is admitted for management of acute on chronic diastolic CHF. Plan: 1. Acute on chronic diastolic CHF. Last echo from Jun 2019 at [facility] showed normal LV systolic function with EF of 60% to 65%. - Follow up Is and Os and daily weights /Lasix/follow up repeat Echo 2. Paroxysmal A fib - Coumadin and metoprolol / follow-up repeat INR 3. Chronic Hypertension - metoprolol, asa. 4. NIDDM - SSI / f/u FSBS , A1C / hold metformin 5. BPH - terazosin 6. GERD PPI 7. Chronic anemia trend Hg 8. IgM gammopathy f/u hematology in an outpatient basis 9. Obesity with BMI of 32.2 complicates care DVT Px Warfarin VS,Fishbone, I+O VS, Fishbone, I+O Laboratory Tests 01/13/20 06:37 Vital Signs Date Time Temp Pulse Resp B/P (MAP) Pulse Ox O2 Delivery O2 Flow Rate FiO2 01/13/20 14:00 97.8 81 18 144/63 (90) 91 Room Air I&O- Last 24 Hours up to 6 AM 01/13/20 05:59 Intake Total 490 ml Output Total 3225 ml Balance -2735 ml JACINTA SANFORD MD Jan 13, 2020 18:11
[2020-01-13] MEDS: WARFARIN SOD 5MG TAB PO SCH (18:23)
[2020-01-13] MEDS: ATORVASTATIN 20 MG TAB PO SCH (21:03)
[2020-01-13] MEDS: TERAZOSIN 1 MG CAP PO SCH (21:03)
[2020-01-13 22:00] VITALS: BP 147/78
[2020-01-14] MEDS: FUROSEMIDE 40MG/4ML VIAL (J1940) IV SCH ×3 (05:09→20:00)
[2020-01-14 05:10] VITALS: BP 139/58
[2020-01-14 06:00] VITALS: BP 152/52
[2020-01-14 06:03] LABS: BASO # 0.1 10^3/uL (0.0-0.2); BASO % 0.8 % (0.0-1.0); EOS # 0.8 10^3/uL (0.0-0.5); EOS % 10.3 % (0.0-3.0); HEMATOCRIT 29.8 % (42.0-52.0); HEMOGLOBIN 9.4 g/dl (13.5-17.5); LYMPH # 0.6 10^3/uL (1.5-5.0); LYMPH % 8.6 % (24.0-44.0); MEAN CORPUSCULAR HEMOGLOBIN 28.1 pg (27.0-33.0); MEAN CORPUSCULAR HGB CONC 31.5 g/dl (32.0-36.5); MONO # 0.7 10^3/uL (0.0-0.8); MONO % 9.4 % (0.0-5.0); NEUTROPHILS # 5.3 10^3/uL (1.5-8.5); NEUTROPHILS % 70.6 % (36.0-66.0); PLATELET COUNT, AUTOMATED 252 10^3/uL (150-450); RED BLOOD COUNT 3.35 10^6/uL (4.30-6.10); WHITE BLOOD COUNT 7.5 10^3/uL (4.0-10.0)
[2020-01-14 06:15] LABS: INR 2.47; PROTHROMBIN TIME 26.6 SECONDS (11.8-14.0)
[2020-01-14 06:20] LABS: BLOOD UREA NITROGEN 16 MG/DL (7-18); CARBON DIOXIDE LEVEL 31 MEQ/L (21-32); CHLORIDE LEVEL 100 MEQ/L (98-107); CREATININE FOR GFR 1.07 MG/DL (0.70-1.30); GLOMERULAR FILTRATION RATE > 60.0 (>42); GLUCOSE, FASTING 107 MG/DL (70-100); POTASSIUM SERUM 3.1 MEQ/L (3.5-5.1); SODIUM LEVEL 139 MEQ/L (136-145)
[2020-01-14] MEDS: DOCUSATE SODIUM 100 MG CAP PO SCH ×2 (08:05→20:00)
[2020-01-14] MEDS: OMEPRAZOLE 20 MG CAP PO SCH (08:05)
[2020-01-14] MEDS: ASCORBIC ACID 500 MG TAB PO SCH (08:05)
[2020-01-14] MEDS: ASPIRIN 81 MG ENTERIC TAB PO SCH (08:05)
[2020-01-14] MEDS: FERROUS GLUCONATE 324 MG TAB PO SCH ×2 (08:05→20:01)
[2020-01-14] MEDS: POTASSIUM CHLORIDE 10 MEQ SR TABLET PO SCH ×3 (08:05→20:01)
[2020-01-14] MEDS: METOPROLOL TART 50 MG TAB PO SCH ×2 (08:06→20:00)
[2020-01-14] MEDS: FOLIC ACID 1 MG TAB PO SCH (08:06)
[2020-01-14] MEDS: HumaLOG INSULIN (NovoLOG) PER UNIT SC SCH ×4 (08:07→20:14)
[2020-01-14 08:09] LABS: MAGNESIUM LEVEL 1.2 MG/DL (1.8-2.4)
[2020-01-14 14:00] VITALS: BP 135/60
--- NOTE | 2020-01-14 16:49 | IPNPDOC ---
Text Note Date of Service The patient was seen on 01/14/20. NOTE TIME OF SERVICE: 210PM Subjective: The reports that his shortness of breath has completley resolved and leg swelling is much better Objective: GEN: NAD CVS: RRR/NMRG LUNGS: CTAB on RA NEURO: CN II to 12 grossly intact. MSK: Trace bilateral lower extremity edema PSYCH: A&O Vitals and labs: see below Assessment: Mr. Méndez is a 74-year-old with a history of TAVR in 2019, chronic Anemia, Vit B12 def, Iron de, IgM lambda gammopathy, Parox Afib, HTN, dyslipidemia, & NIDDM is admitted for management of acute on chronic diastolic CHF. Plan: 1. Hypokalemia and Hypomagnesemia. Likely 2/2 diuretics - PO KCl with IV Mag Sulfate/ f/u labs in the morning 2. Acute on chronic diastolic CHF. Resolved - f/u Is and Os and daily weights / d/c IV lasix /follow-up Echo report 2. Paroxysmal A fib - Coumadin and metoprolol / follow-up repeat INR 3. Chronic Hypertension - metoprolol, asa. 4. NIDDM A1C 6.0% - SSI / f/u FSBS / hold metformin 5. BPH - terazosin 6. GERD PPI 7. Chronic anemia - trend Hg 8. IgM gammopathy f/u hematology in an outpatient basis 9. Obesity with BMI of 32.2 complicates care DVT Px Warfarin DISPO: home tomorrow pending Echo and resolution of electrolyte abnormalities VS,Fishbone, I+O VS, Fishbone, I+O Laboratory Tests 01/14/20 05:37 Vital Signs Date Time Temp Pulse Resp B/P (MAP) Pulse Ox O2 Delivery O2 Flow Rate FiO2 01/14/20 14:00 97.4 81 17 135/60 (85) 89 Room Air I&O- Last 24 Hours up to 6 AM 01/14/20 06:00 Intake Total 1180 ml Output Total 4825 ml Balance -3645 ml JACINTA SANFORD MD Jan 14, 2020 16:49
[2020-01-14] MEDS: WARFARIN SOD 5MG TAB PO SCH (18:11)
[2020-01-14] MEDS: ATORVASTATIN 20 MG TAB PO SCH (20:00)
[2020-01-14] MEDS: TERAZOSIN 1 MG CAP PO SCH (20:01)
[2020-01-14 22:00] VITALS: BP 149/71
[2020-01-15] MEDS: FUROSEMIDE 40MG/4ML VIAL (J1940) IV SCH ×3 (04:35→20:32)
[2020-01-15 06:00] VITALS: BP 125/54
[2020-01-15 06:07] LABS: BASO # 0.1 10^3/uL (0.0-0.2); BASO % 0.9 % (0.0-1.0); EOS # 1.2 10^3/uL (0.0-0.5); EOS % 15.3 % (0.0-3.0); HEMATOCRIT 31.2 % (42.0-52.0); HEMOGLOBIN 9.8 g/dl (13.5-17.5); LYMPH # 0.7 10^3/uL (1.5-5.0); LYMPH % 9.2 % (24.0-44.0); MEAN CORPUSCULAR HEMOGLOBIN 28.2 pg (27.0-33.0); MEAN CORPUSCULAR HGB CONC 31.4 g/dl (32.0-36.5); MEAN CORPUSCULAR VOLUME 89.9 fl (80.0-96.0); MONO # 0.8 10^3/uL (0.0-0.8); MONO % 10.5 % (0.0-5.0); NEUTROPHILS # 4.8 10^3/uL (1.5-8.5); NEUTROPHILS % 63.6 % (36.0-66.0); PLATELET COUNT, AUTOMATED 304 10^3/uL (150-450); RED BLOOD COUNT 3.47 10^6/uL (4.30-6.10); WHITE BLOOD COUNT 7.5 10^3/uL (4.0-10.0)
[2020-01-15 06:26] LABS: INR 2.53; PROTHROMBIN TIME 27.1 SECONDS (11.8-14.0)
[2020-01-15 06:40] LABS: BLOOD UREA NITROGEN 20 MG/DL (7-18); CALCIUM LEVEL 9.9 MG/DL (8.8-10.2); CARBON DIOXIDE LEVEL 34 MEQ/L (21-32); CHLORIDE LEVEL 97 MEQ/L (98-107); CREATININE FOR GFR 1.12 MG/DL (0.70-1.30); GLOMERULAR FILTRATION RATE > 60.0 (>42); GLUCOSE, FASTING 114 MG/DL (70-100); MAGNESIUM LEVEL 1.4 MG/DL (1.8-2.4); POTASSIUM SERUM 3.4 MEQ/L (3.5-5.1); SODIUM LEVEL 137 MEQ/L (136-145)
[2020-01-15] MEDS ORDERED: MAGNESIUM OXIDE 400 MG TAB (MAG-OX) PO ONE ×2 (07:45→10:45)
[2020-01-15] MEDS ORDERED: POTASSIUM CHLORIDE 10 MEQ SR TABLET PO ONE (07:45)
[2020-01-15] MEDS: FERROUS GLUCONATE 324 MG TAB PO SCH ×2 (08:21→20:30)
[2020-01-15] MEDS: HumaLOG INSULIN (NovoLOG) PER UNIT SC SCH ×4 (08:21→21:00)
[2020-01-15] MEDS: FOLIC ACID 1 MG TAB PO SCH (08:23)
[2020-01-15] MEDS: POTASSIUM CHLORIDE 10 MEQ SR TABLET PO SCH (08:23)
[2020-01-15] MEDS: METOPROLOL TART 50 MG TAB PO SCH ×2 (08:23→20:31)
[2020-01-15] MEDS: ASPIRIN 81 MG ENTERIC TAB PO SCH (08:23)
[2020-01-15] MEDS: DOCUSATE SODIUM 100 MG CAP PO SCH ×2 (08:23→20:32)
[2020-01-15] MEDS: ASCORBIC ACID 500 MG TAB PO SCH (08:24)
[2020-01-15] MEDS: OMEPRAZOLE 20 MG CAP PO SCH (08:24)
[2020-01-15 10:25] LABS: MAGNESIUM LEVEL 1.4 MG/DL (1.8-2.4); POTASSIUM SERUM 3.7 MEQ/L (3.5-5.1)
[2020-01-15 14:00] VITALS: BP 108/46
--- NOTE | 2020-01-15 14:55 | DS.PDOC ---
Discharge Summary General Date of Admission Jan 12, 2020 at 13:42 Date of Discharge 01/16/2020 Attending Physician: JACINTA SANFORD MD Specialist/Consultants Involve PCP Ramona VILLEDA Discharge Summary PROCEDURES PERFORMED DURING STAY: [None]. ADMITTING DIAGNOSES: 1. Acute diastolic CHF 2. Paroxysmal atrial fibrillation 3. Chronic hypertension. 4. NIDDM. 5. BPH. 6. GERD. 7. Chronic anemia DISCHARGE DIAGNOSES: 1. Chronic diastolic CHF - fluid overload has resolved 2. Paroxysmal atrial fibrillation 3. Chronic hypertension. 4. NIDDM. 5. BPH. 6. GERD. 7. Chronic anemia COMPLICATIONS/CHIEF COMPLAINT: Anemia,Chf Exacerbation. HISTORY OF PRESENT ILLNESS: Per HPI Mr. Muñiz is a " 74 year old male with PMH of TAVR in 2019, chronic Anemia, Vit B12 def, Iron de, IgM lamda gammopathy, ? Afib on coumadin, Hypertension, Hyperlipidemia, Diabetes presented to the ED for Shortness of breath. He has been having progressively increasing shortness of breath for the past 1 week and he has also noticed that his legs have been swollen more than usual. Breathing is worse on exertion. Denied any chest pain / pressure. he does have some cough intermittently. He went to his PMD at the [facility] today had a CXR done and was advised to come to the ED." HOSPITAL COURSE: He was admitted to the medical floor for acute diastolic CHF and given Lasix. His weight decreased from 102.9 kilograms, down to 93.1 kg. His electrolytes were repleted as necessary. DISCHARGE MEDICATIONS: Please see below. ALLERGIES: Please see below. PHYSICAL EXAMINATION ON DISCHARGE: VITAL SIGNS: Please see below. GENERAL: NAD HEENT: NCAT CARDIOVASCULAR EXAMINATION: RRR/NRMG RESPIRATORY EXAMINATION: CTAB on RA PSYCHIATRIC EXAMINATION: A and O 3, able to understand and follow commands LABORATORY DATA: Please see below. IMAGING: Chest x-ray "03/08/2017. There are diffuse bilateral infiltrates. This may represent pulmonary edema. There may be small pleural effusions." 2-D echo "CONCLUSIONS: 1. Study is of good technical quality. The patient is in sinus rhythm. 2. Normal LV size with mild to moderate LVH, hyperdynamic LV systolic function and grade 2 diastolic dysfunction. 3. Normally functioning bioprosthesis in aortic position. 4. Trace mitral and tricuspid insufficiency. 5. Normal central venous pressure and likely moderate pulmonary hypertension." PROGNOSIS: Fair ACTIVITY: [As tolerated]. DIET: Low-salt DISCHARGE PLAN: The patient was instructed to follow-up his PCP and/or chemical research engineer within the next week DISPOSITION: . DISCHARGE INSTRUCTIONS: 1. Follow-up with PCP and/or chemical research engineer within the next week. 2. Restrict salt to 2 g per day 3. Check weight daily ITEMS TO FOLLOWUP ON ON OUTPATIENT: 1. Fluid status and weight DISCHARGE CONDITION: [Stable]. TIME SPENT ON DISCHARGE: Approximately 20 minutes Vital Signs/I&Os Vital Signs Date Time Temp Pulse Resp B/P (MAP) Pulse Ox O2 Delivery O2 Flow Rate FiO2 01/15/20 14:00 98.0 61 19 108/46 (66) 93 Room Air I&O- Last 24 Hours up to 6 AM 01/15/20 06:00 Intake Total 1890 ml Output Total 02568 ml Balance -91804 ml Laboratory Data Labs 24H Laboratory Tests 2 01/14/20 16:47: Bedside Glucose (Misc Panel) 120H 01/14/20 20:09: Bedside Glucose (Misc Panel) 89 01/15/20 05:37: Immature Granulocyte % (Auto) 0.5, Neutrophils (%) (Auto) 63.6, Lymphocytes (%) (Auto) 9.2L, Monocytes (%) (Auto) 10.5H, Eosinophils (%) (Auto) 15.3H, Basophils (%) (Auto) 0.9, Neutrophils # (Auto) 4.8, Lymphocytes # (Auto) 0.7L, Monocytes # (Auto) 0.8, Eosinophils # (Auto) 1.2H, Basophils # (Auto) 0.1, Nucleated Red Blood Cells % (auto) 0.0, Prothrombin Time 27.1H, Prothromb Time International Ratio 2.53, Anion Gap 6L, Glomerular Filtration Rate > 60.0, Calcium Level 9.9, Magnesium Level 1.4L 01/15/20 09:41: Magnesium Level 1.4L 01/15/20 11:40: Bedside Glucose (Misc Panel) 243H CBC/BMP Laboratory Tests 01/15/20 05:37 01/15/20 09:41 FSBS Laboratory Tests Test 01/14/20 16:47 01/14/20 20:09 01/15/20 11:40 Range/Units Bedside Glucose (Misc Panel) 120 89 243 83-110 MG/DL Microbiology Microbiology 01/12/20 Blood Culture - Preliminary, Resulted No Growth after 72 hours. All specime... 01/12/20 Blood Culture - Preliminary, Resulted No Growth after 72 hours. All specime... Discharge Medications Scheduled Alogliptin Benzoate (Nesina) 12.5 Mg Tablet, 12.5 MG PO DAILY, (Reported) Ascorbic Acid (Ascorbic Acid) 500 Mg Tablet, 500 MG PO DAILY, (Reported) Aspirin (Aspir 81) 81 Mg Tablet.dr, 81 MG PO DAILY, (Reported) Atorvastatin Calcium (Atorvastatin Calcium) 80 Mg Tablet, 40 MG PO QHS, (Reported) Cholecalciferol (Vitamin D3) (Vitamin D3) 1,000 Unit Tablet, 2,000 UNITS PO DAILY, (Reported) Docusate Sodium (Colace) 100 Mg Capsule, 100 MG PO DAILY, (Reported) Ferrous Gluconate (Ferrous Gluconate) 324 Mg Tablet, 324 MG PO BID, (Reported) Folic Acid (Folic Acid) 1 Mg Tablet, 1 MG PO DAILY, (Reported) Furosemide (Furosemide) 20 Mg Tablet, 20 MG PO DAILY Metformin HCl (Metformin HCl) 1,000 Mg Tab, 1,000 MG PO BIDWM, (Reported) Metoprolol Tartrate (Metoprolol Tartrate) 50 Mg Tablet, 50 MG PO BID, (Reported) Omeprazole (Omeprazole) 40 Mg Capsule.dr, 40 MG PO DAILY, (Reported) Terazosin HCl (Terazosin HCl) 2 Mg Capsule, 4 MG PO QHS, (Reported) Warfarin Sodium (Warfarin Sodium) 2.5 Mg Tablet, 5 MG PO 5XW, (Reported) SUN/MON/WED/FRI/SAT AT 1700 Warfarin Sodium (Warfarin Sodium) 2.5 Mg Tablet, 7.5 MG PO 2XW, (Reported) TUE/THURS AT 1700 Scheduled PRN Acetaminophen (Acetaminophen) 325 Mg Tablet, 650 MG PO Q4H PRN for PAIN, (Reported) Clobetasol Propionate (Temovate) 15 Gm Oint...g., 1 APLCT TOP BID PRN for ITCHING, (Reported) APPLY TO ELBOW/BUTOCKS Sildenafil Citrate (Sildenafil Citrate) 50 Mg Tablet, 25 MG PO ASDIRECTED PRN for ERECTILE DYSFUNCTION, (Reported) Allergies Coded Allergies: No Known Allergies (Unverified , 10/22/19) JACINTA SANFORD MD Jan 15, 2020 14:55
[2020-01-15] MEDS: WARFARIN SOD 5MG TAB PO SCH (17:17)
--- NOTE | 2020-01-15 18:23 | IPNPDOC ---
Text Note Date of Service The patient was seen on 01/15/20. NOTE Time of service 6:45 AM Subjective: The reports that his shortness of breath has completley resolved and leg swelling is much better Objective: GEN: NAD CVS: RRR/NMRG LUNGS: CTAB on RA NEURO: CN II to 12 grossly intact. MSK: Trace bilateral lower extremity edema PSYCH: A&O Vitals and labs: see below Assessment: Mr. Méndez is a 74-year-old with a history of TAVR in 2019, chronic Anemia, Vit B12 def, Iron de, IgM lambda gammopathy, Parox Afib, HTN, dyslipidemia, & NIDDM is admitted for management of acute on chronic diastolic CHF. Plan: 1. Hypokalemia and Hypomagnesemia. Likely 2/2 diuretics - PO KCl & Mag & repeat labs at 10AM 2. Chronic diastolic CHF. clincally compensated - f/u Is and Os and daily weights / follow-up Echo report 2. Paroxysmal A fib - Coumadin and metoprolol / follow-up repeat INR 3. Chronic Hypertension - metoprolol, asa. 4. NIDDM A1C 6.0% - SSI / f/u FSBS / hold metformin 5. BPH - terazosin 6. GERD PPI 7. Chronic anemia - trend Hg 8. IgM gammopathy f/u hematology in an outpatient basis 9. Obesity with BMI of 32.2 complicates care DVT Px Warfarin DISPO: had planned to send the patient home today but as of 658pm his echo report is still pending...will defer d/c to Jeanette Guerrero, I+O Jeanette BECERRA I+O Laboratory Tests 01/15/20 05:37 01/15/20 09:41 Vital Signs Date Time Temp Pulse Resp B/P (MAP) Pulse Ox O2 Delivery O2 Flow Rate FiO2 01/15/20 14:00 98.0 61 19 108/46 (66) 93 Room Air I&O- Last 24 Hours up to 6 AM 01/15/20 05:59 Intake Total 1890 ml Output Total 22274 ml Balance -9985 ml JACINTA SANFORD MD Jan 15, 2020 18:23
[2020-01-15] MEDS: ATORVASTATIN 20 MG TAB PO SCH (20:30)
[2020-01-15] MEDS: TERAZOSIN 1 MG CAP PO SCH (20:32)
--- NOTE | 2020-01-15 21:28 | ECHO ---
DATE OF PROCEDURE: 01/15/2020 REFERRING PHYSICIAN: Dr. Rebeka Edward INDICATION: Congestive heart failure. Height 178 cm, weight 103 kg. DIMENSIONS: IVS: 1.4 LV: 5.0 LVPW: 1.4 LA: 4.3 Aorta: 2.9 IVC: 1.7 Mitral E wave velocity: 134 A wave: 43 E prime septal: 5.4 E prime lateral: 10.2 FINDINGS: The study is of good technical quality. The patient is in sinus rhythm. Normal left ventricular (LV) size with mild to moderate left ventricular hypertrophy (LVH) and hyperdynamic LV systolic function, estimated left ventricular ejection fraction (LVEF) 65-70%. Right ventricle was poorly visualized. Both atria are at least moderately enlarged. There is bioprosthetic valve in aortic position. It was relatively poorly visualized, and I cannot comment on its structure. But it appears well seated. There are mild degenerative abnormalities of mitral valve with the calcifications at the base of posterior mitral leaflet. Mobility is preserved. Tricuspid and pulmonic valves appear normal. No pericardial effusion is noted. Inferior vena cava is normal size. Aortic root and aortic arch appear normal. Abdominal aorta was not well seen. Doppler interrogation reveals no insufficiency of aortic bioprosthesis. Mean gradient across the valve is 12 mmHg, which corresponds to normal values. There is trace mitral and trace tricuspid insufficiency. Calculated pulmonary artery pressure is in 40s that corresponds to moderate pulmonary hypertension. Mitral inflow pattern and tissue Doppler imaging of mitral annulus revealed grade 2 diastolic dysfunction. CONCLUSIONS: 1. Study is of good technical quality. The patient is in sinus rhythm. 2. Normal LV size with mild to moderate LVH, hyperdynamic LV systolic function and grade 2 diastolic dysfunction. 3. Normally functioning bioprosthesis in aortic position. 4. Trace mitral and tricuspid insufficiency. 5. Normal central venous pressure and likely moderate pulmonary hypertension. COMMENT: Subacute bacterial endocarditis (SBE) prophylaxis is recommended.
[2020-01-15 22:00] VITALS: BP 133/61
[2020-01-16] MEDS: FUROSEMIDE 40MG/4ML VIAL (J1940) IV SCH (03:56)
[2020-01-16 06:00] VITALS: BP 141/89
[2020-01-16 06:16] LABS: BASO # 0.1 10^3/uL (0.0-0.2); BASO % 1.1 % (0.0-1.0); EOS # 1.3 10^3/uL (0.0-0.5); EOS % 14.9 % (0.0-3.0); HEMATOCRIT 32.8 % (42.0-52.0); HEMOGLOBIN 10.2 g/dl (13.5-17.5); LYMPH # 0.8 10^3/uL (1.5-5.0); MEAN CORPUSCULAR HEMOGLOBIN 27.9 pg (27.0-33.0); MEAN CORPUSCULAR HGB CONC 31.1 g/dl (32.0-36.5); MEAN CORPUSCULAR VOLUME 89.6 fl (80.0-96.0); MONO # 0.8 10^3/uL (0.0-0.8); MONO % 9.7 % (0.0-5.0); NEUTROPHILS # 5.5 10^3/uL (1.5-8.5); NEUTROPHILS % 64.9 % (36.0-66.0); PLATELET COUNT, AUTOMATED 326 10^3/uL (150-450); RED BLOOD COUNT 3.66 10^6/uL (4.30-6.10); WHITE BLOOD COUNT 8.4 10^3/uL (4.0-10.0)
[2020-01-16 06:26] LABS: INR 2.68; PROTHROMBIN TIME 28.4 SECONDS (11.8-14.0)
[2020-01-16 07:04] LABS: CREATININE FOR GFR 1.32 MG/DL (0.70-1.30); GLOMERULAR FILTRATION RATE 56.8 (>42)
[2020-01-16] MEDS: ASCORBIC ACID 500 MG TAB PO SCH (08:11)
[2020-01-16] MEDS: ASPIRIN 81 MG ENTERIC TAB PO SCH (08:11)
[2020-01-16] MEDS: OMEPRAZOLE 20 MG CAP PO SCH (08:11)
[2020-01-16] MEDS: FERROUS GLUCONATE 324 MG TAB PO SCH (08:11)
[2020-01-16] MEDS: DOCUSATE SODIUM 100 MG CAP PO SCH (08:11)
[2020-01-16] MEDS: FOLIC ACID 1 MG TAB PO SCH (08:11)
[2020-01-16] MEDS: POTASSIUM CHLORIDE 10 MEQ SR TABLET PO SCH (08:11)
[2020-01-16 08:12] VITALS: BP 116/58
[2020-01-16] MEDS: HumaLOG INSULIN (NovoLOG) PER UNIT SC SCH ×2 (08:12→12:59)
[2020-01-16] MEDS: METOPROLOL TART 50 MG TAB PO SCH (08:12)
[2020-01-16] MEDS ORDERED: FURO20TA2 PO (11:27)
[2020-01-16] MEDS ORDERED: WARFARIN SOD 7.5MG TAB PO SCH (17:00)
[2020-01-17] MEDS ORDERED: FUROSEMIDE 20 MG TAB PO SCH (09:00)
== END 2020-01-16 13:53 | disposition home or self-care (01) | DRG 293 ==
LOC: M ED 11:43 → M ED INP 13:42 → ENRESERV 16:21 → M MSPAV 16:36
PROVIDERS: ADMIT Internal Medicine Nephrology; ATTEND Internal Medicine
DX: I11.0 Hypertensive heart disease with heart failure (principal); I50.33 Acute on chronic diastolic (congestive) heart failure; D64.9 Anemia, unspecified; E53.8 Deficiency of other specified B group vitamins; I48.0 Paroxysmal atrial fibrillation; E78.5 Hyperlipidemia, unspecified; E87.6 Hypokalemia; E83.42 Hypomagnesemia; E11.9 Type 2 diabetes mellitus without complications; K21.9 Gastro-esophageal reflux disease without esophagitis; E66.9 Obesity, unspecified; N40.0 Benign prostatic hyperplasia without lower urinary tract symptoms; Z79.82 Long term (current) use of aspirin; Z79.84 Long term (current) use of oral hypoglycemic drugs; Z79.01 Long term (current) use of anticoagulants; Z79.899 Other long term (current) drug therapy; Z95.2 Presence of prosthetic heart valve; Z68.32 Body mass index [BMI] 32.0-32.9, adult

== ENCOUNTER → 2022-05-18 | Outpatient (CLI) | payer OTHER ==
[~2022-05-18] MED LIST changes: +ACET1TAB55 PO; +ASCO500T PO; -ASPI81TA85 PO; +ASPI81TA86 PO; +FERR324T21 PO; -FERR325T16 PO; +FURO20TA2 PO; -LISI40TA PO; +LISI40TA4 PO; +METO50TA7 PO; +OMEP40CA4 PO; -OMEP40CA97 PO; +SILD50TA8 PO; +TEMO0.0517 TOP; +VITA100093 PO; +WARF-18 PO
== END ==
LOC: M PLAIMG 10:32
PROVIDERS: ATTEND Internal Medicine Pulmonary Disease
DX: R06.02 Shortness of breath (principal)

== ENCOUNTER → 2022-06-04 | Outpatient (REF) | payer OTHER ==
[2022-06-04 18:52] LABS: C REACTIVE PROTEIN QUANTITATIV 0.55 MG/DL (0.00-0.30); RHEUMATOID FACTOR QUANT < 10.0 IU/ML (<15.0)
[2022-06-09 16:08] LABS: ANCA-ATYPICAL <1:20 titer (Neg:<1:20); ANTI DOUBLE STRAND-DNA AB <1 IU/mL (0-9); ANTI DS-DNA AB Negative (Negative); ANTINUCLEAR ANTIBODIES DIRECT Positive (Negative); CYCLIC CITRULLINATED PEPTIDE 4 units (0-19); CYTOPLASMIC NEUTROP AB ANCA-C <1:20 titer (Neg:<1:20); PERINUCLEAR AB ANCA-P <1:20 titer (Neg:<1:20); RNP ANTIBODIES <0.2 AI (0.0-0.9); SJOGREN'S ANTI SS-A <0.2 AI (0.0-0.9); SJOGREN'S ANTI SS-B <0.2 AI (0.0-0.9); SMITH ANTIBODIES <0.2 AI (0.0-0.9)
== END ==
LOC: M LAB REF 16:49
PROVIDERS: ATTEND Internal Medicine Pulmonary Disease
DX: R06.02 Shortness of breath (principal)

== ENCOUNTER 2022-08-03 12:09 | Inpatient (IN) | payer OTHER ==
[~2022-08-03] VITALS: Ht 180.3 cm; Wt 92.0 kg
[2022-08-03 13:06] LABS: BASO % 0.3 % (0.0-1.0); HEMATOCRIT 30.5 % (42.0-52.0); HEMOGLOBIN 9.6 g/dl (13.5-17.5); LYMPH # 0.5 10^3/uL (1.5-5.0); LYMPH % 5.7 % (24.0-44.0); MEAN CORPUSCULAR HEMOGLOBIN 29.2 pg (27.0-33.0); MEAN CORPUSCULAR HGB CONC 31.5 g/dl (32.0-36.5); MEAN CORPUSCULAR VOLUME 92.7 fl (80.0-96.0); MONO # 0.8 10^3/uL (0.0-0.8); NEUTROPHILS # 7.5 10^3/uL (1.5-8.5); NEUTROPHILS % 84.7 % (36.0-66.0); PLATELET COUNT, AUTOMATED 173 10^3/uL (150-450); RED BLOOD COUNT 3.29 10^6/uL (4.30-6.10); WHITE BLOOD COUNT 8.9 10^3/uL (4.0-10.0)
[2022-08-03 13:33] LABS: BILIRUBIN,DIRECT 0.3 MG/DL (<0.4)
[2022-08-03 13:35] LABS: THYROID STIMULATING HORMONE 1.068 uIU/ML (0.55-4.78); THYROXINE (T4) 6.2 UG/DL (4.5-10.9)
[2022-08-03] MEDS ORDERED: FUROSEMIDE 40MG/4ML VIAL IV ONE (13:35)
[2022-08-03] MEDS ORDERED: ACETAMINOPHEN TAB 650MG DOSE (2X325MG) PO ONE (13:35)
[2022-08-03 13:40] LABS: ALBUMIN 3.6 G/DL (3.2-5.2); ALKALINE PHOSPHATASE 115 U/L (46-116); ALT/SGPT 24 U/L (7.0-40); AST/SGOT 60 U/L (<34); BILIRUBIN,TOTAL 0.8 MG/DL (0.3-1.2); BLOOD UREA NITROGEN 43 MG/DL (9-23); CALCIUM LEVEL 8.6 MG/DL (8.3-10.6); CARBON DIOXIDE LEVEL 19 MMOL/L (20-31); CHLORIDE LEVEL 103 MMOL/L (98-107); CK-MB VALUE MASS < 1.0 NG/ML (<3.6); CPK CREATINE PHOSPHOKINASE 140 U/L (46-171); CREATININE FOR GFR 1.42 MG/DL (0.70-1.30); GLOMERULAR FILTRATION RATE 51.7 (>42); GLUCOSE, FASTING 151 MG/DL (74-106); MB/CK RELATIVE INDEX 0.71 (< OR =4); POTASSIUM SERUM 5.4 MMOL/L (3.5-5.1); SODIUM LEVEL 134 MMOL/L (136-145); TOTAL PROTEIN 7.9 G/DL (5.7-8.2)
[2022-08-03 14:12] LABS: INR 1.69; PROTHROMBIN TIME 20.2 SECONDS (12.5-14.5)
[2022-08-03] MEDS ORDERED: ACETAMINOPHEN TAB 650MG DOSE (2X325MG) PO PRN (15:30)
[2022-08-03] MEDS ORDERED: DEXTROSE 50% 50ML SYRINGE IV PRN (15:30)
[2022-08-03] MEDS ORDERED: GLUCOSE 4GM CHEW TABLET PO PRN (15:30)
[2022-08-03] MEDS ORDERED: GLUCAGON INJ 1MG VIAL SC PRN (15:30)
[2022-08-03] MEDS: cefTRIAXone SOD 2 GM in D5W MINI-BAG PLUS 50 ML IV SCH (17:00)
[2022-08-03] MEDS: guaiFENesin 200 MG TAB PO SCH ×2 (17:26→20:59)
[2022-08-03] MEDS: INSULIN LISPRO (NovoLOG) PER UNIT SC SCH ×2 (17:30→20:58)
[2022-08-03 17:50] LABS: CALCIUM LEVEL 8.7 MG/DL (8.3-10.6); CREATININE FOR GFR 1.46 MG/DL (0.70-1.30); GLOMERULAR FILTRATION RATE 50.1 (>42); POTASSIUM SERUM 3.7 MMOL/L (3.5-5.1)
[2022-08-03] MEDS ORDERED: REMDESIVIR 200 MG in NS 250 ML IV ONE (18:00)
[2022-08-03] MEDS: AZITHROMYCIN 250MG TABLET PO SCH (19:42)
[2022-08-03] MEDS ORDERED: METO1TAB87 PO (19:51)
[2022-08-03] MEDS ORDERED: FURO40TA2 PO (19:51)
[2022-08-03] MEDS ORDERED: LIDO5DIS41 TD (19:54)
[2022-08-03] MEDS ORDERED: LISI10TA22 PO (19:54)
[2022-08-03] MEDS ORDERED: ELIQ5TAB PO (19:54)
[2022-08-03] MEDS ORDERED: OFEV1CAP2 PO (19:55)
[2022-08-03] MEDS ORDERED: med rec comment (19:57)
[2022-08-03] MEDS ORDERED: HOME MED LIST COMPLETE! XX SCH (20:00)
[2022-08-03] MEDS ORDERED: SODIUM CHLORIDE 0.9% INJ 10 ML SYR IV ONE (20:00)
[2022-08-03] MEDS ORDERED: METOPROLOL TART 25 MG TABLET PO SCH (21:00)
[2022-08-03] MEDS ORDERED: WARFARIN SOD 5MG TAB PO SCH (21:00)
[2022-08-03] MEDS: METOPROLOL TART 12.5 MG PER 1/2 TAB PO SCH (21:49)
[2022-08-04] MEDS: guaiFENesin 200 MG TAB PO SCH ×6 (00:55→21:58)
[2022-08-04] MEDS ORDERED: ACETAMINOPHEN TAB 650MG DOSE (2X325MG) PO PRN (07:40)
[2022-08-04] MEDS: INSULIN LISPRO (NovoLOG) PER UNIT SC SCH ×4 (08:03→21:00)
[2022-08-04 08:21] LABS: BASO % 0.3 % (0.0-1.0); EOS % 0.1 % (0.0-3.0); HEMATOCRIT 29.8 % (42.0-52.0); HEMOGLOBIN 9.4 g/dl (13.5-17.5); LYMPH # 0.8 10^3/uL (1.5-5.0); LYMPH % 7.9 % (24.0-44.0); MEAN CORPUSCULAR HEMOGLOBIN 29.2 pg (27.0-33.0); MEAN CORPUSCULAR HGB CONC 31.5 g/dl (32.0-36.5); MEAN CORPUSCULAR VOLUME 92.5 fl (80.0-96.0); MONO # 1.3 10^3/uL (0.0-0.8); NEUTROPHILS # 7.9 10^3/uL (1.5-8.5); NEUTROPHILS % 78.4 % (36.0-66.0); PLATELET COUNT, AUTOMATED 171 10^3/uL (150-450); RED BLOOD COUNT 3.22 10^6/uL (4.30-6.10); WHITE BLOOD COUNT 10.1 10^3/uL (4.0-10.0)
[2022-08-04 08:33] LABS: INR 1.69; PROTHROMBIN TIME 20.2 SECONDS (12.5-14.5)
[2022-08-04 08:42] LABS: MAGNESIUM LEVEL 1.9 MG/DL (1.8-2.4)
[2022-08-04 08:48] LABS: ALBUMIN 3.2 G/DL (3.2-5.2); BILIRUBIN,TOTAL 0.6 MG/DL (0.3-1.2); CALCIUM LEVEL 8.6 MG/DL (8.3-10.6); CREATININE FOR GFR 1.6 MG/DL (0.70-1.30); GLOMERULAR FILTRATION RATE 45.1 (>42); TOTAL PROTEIN 7.2 G/DL (5.7-8.2)
[2022-08-04] MEDS ORDERED: METOPROLOL TART 12.5 MG PER 1/2 TAB PO SCH (09:00)
[2022-08-04] MEDS ORDERED: FUROSEMIDE 40 MG TAB PO SCH (09:00)
[2022-08-04] MEDS: FERROUS GLUCONATE 324 MG TAB PO SCH ×2 (09:00→21:58)
[2022-08-04] MEDS: METOPROLOL TART 12.5 MG PER 1/2 TAB PO SCH ×2 (09:20→22:02)
[2022-08-04] MEDS: VITAMIN D 1,000 INTERNATIONAL UNITS TABLET PO SCH (09:21)
[2022-08-04] MEDS: FOLIC ACID 1MG TAB PO SCH (09:21)
[2022-08-04] MEDS: DOCUSATE SODIUM 100MG CAPSULE PO SCH ×2 (09:21→21:00)
[2022-08-04] MEDS: LIDOCAINE 5% (LIDODERM) PATCH TD SCH (09:22)
[2022-08-04] MEDS: APIXABAN 5 MG TAB (ELIQUIS) PO SCH ×2 (09:22→21:58)
[2022-08-04 17:15] VITALS: BP 128/55
[2022-08-04] MEDS: AZITHROMYCIN 250MG TABLET PO SCH (17:58)
[2022-08-04] MEDS: cefTRIAXone SOD 2 GM in D5W MINI-BAG PLUS 50 ML IV SCH (17:58)
[2022-08-04 18:50] VITALS: O2SAT 95
[2022-08-04] MEDS: REMDESIVIR 100 MG in NS 250 ML IV SCH (18:59)
[2022-08-04] MEDS: SODIUM CHLORIDE 0.9% INJ 10 ML SYR IV SCH (18:59)
[2022-08-04] MEDS: ATORVASTATIN 20 MG TAB PO SCH (21:58)
[2022-08-04 22:00] VITALS: BP 105/44
[2022-08-04] MEDS: TERAZOSIN 1 MG CAP PO SCH (22:00)
[2022-08-05] MEDS: guaiFENesin 200 MG TAB PO SCH ×6 (01:37→20:23)
[2022-08-05 05:52] LABS: BASO % 0.4 % (0.0-1.0); EOS # 0.2 10^3/uL (0.0-0.5); EOS % 2.8 % (0.0-3.0); HEMATOCRIT 28.4 % (42.0-52.0); LYMPH # 0.9 10^3/uL (1.5-5.0); LYMPH % 11.7 % (24.0-44.0); MEAN CORPUSCULAR HEMOGLOBIN 29.2 pg (27.0-33.0); MEAN CORPUSCULAR HGB CONC 31.7 g/dl (32.0-36.5); MEAN CORPUSCULAR VOLUME 92.2 fl (80.0-96.0); MONO # 0.9 10^3/uL (0.0-0.8); MONO % 11.6 % (2.0-8.0); NEUTROPHILS # 5.8 10^3/uL (1.5-8.5); PLATELET COUNT, AUTOMATED 166 10^3/uL (150-450); RED BLOOD COUNT 3.08 10^6/uL (4.30-6.10); WHITE BLOOD COUNT 7.9 10^3/uL (4.0-10.0)
[2022-08-05 06:00] VITALS: BP 120/56
[2022-08-05 06:15] LABS: MAGNESIUM LEVEL 2.2 MG/DL (1.8-2.4)
[2022-08-05 06:22] LABS: ALBUMIN 2.8 G/DL (3.2-5.2); BILIRUBIN,TOTAL 0.4 MG/DL (0.3-1.2); CALCIUM LEVEL 8.4 MG/DL (8.3-10.6); CREATININE FOR GFR 1.98 MG/DL (0.70-1.30); GLOMERULAR FILTRATION RATE 35.3 (>42); POTASSIUM SERUM 4.2 MMOL/L (3.5-5.1); TOTAL PROTEIN 6.8 G/DL (5.7-8.2)
[2022-08-05] MEDS ORDERED: ALBUTEROL 90 MCG/ACT 8GM HFA INHALER INH PRN (07:55)
[2022-08-05] MEDS: METOPROLOL TART 12.5 MG PER 1/2 TAB PO SCH ×2 (08:44→20:23)
[2022-08-05] MEDS: APIXABAN 5 MG TAB (ELIQUIS) PO SCH ×2 (08:45→20:23)
[2022-08-05] MEDS: DOCUSATE SODIUM 100MG CAPSULE PO SCH ×2 (08:45→20:23)
[2022-08-05] MEDS: INSULIN LISPRO (NovoLOG) PER UNIT SC SCH ×4 (08:45→20:17)
[2022-08-05] MEDS: VITAMIN D 1,000 INTERNATIONAL UNITS TABLET PO SCH (08:45)
[2022-08-05] MEDS: FERROUS GLUCONATE 324 MG TAB PO SCH ×2 (08:45→20:23)
[2022-08-05] MEDS: FOLIC ACID 1MG TAB PO SCH (08:45)
[2022-08-05] MEDS: LIDOCAINE 5% (LIDODERM) PATCH TD SCH (08:46)
[2022-08-05 14:00] VITALS: BP 131/54
[2022-08-05] MEDS: SODIUM CHLORIDE NASAL 0.65% SPRAY BTL (OCEAN) SCH ×2 (16:25→20:23)
[2022-08-05] MEDS: AZITHROMYCIN 250MG TABLET PO SCH (17:57)
[2022-08-05] MEDS: cefTRIAXone SOD 2 GM in D5W MINI-BAG PLUS 50 ML IV SCH (17:58)
[2022-08-05] MEDS: REMDESIVIR 100 MG in NS 250 ML IV SCH (18:54)
[2022-08-05] MEDS: SODIUM CHLORIDE 0.9% INJ 10 ML SYR IV SCH (18:55)
[2022-08-05 20:15] VITALS: BP 124/70
[2022-08-05] MEDS: ATORVASTATIN 20 MG TAB PO SCH (20:23)
[2022-08-05] MEDS: TERAZOSIN 1 MG CAP PO SCH (21:00)
[2022-08-06] MEDS: guaiFENesin 200 MG TAB PO SCH ×4 (00:29→12:40)
[2022-08-06 06:00] VITALS: BP 125/70
[2022-08-06 08:22] LABS: BASO % 0.1 % (0.0-1.0); EOS % 0.1 % (0.0-3.0); HEMATOCRIT 28.2 % (42.0-52.0); HEMOGLOBIN 8.8 g/dl (13.5-17.5); LYMPH # 0.7 10^3/uL (1.5-5.0); LYMPH % 9.2 % (24.0-44.0); MEAN CORPUSCULAR HEMOGLOBIN 28.9 pg (27.0-33.0); MEAN CORPUSCULAR HGB CONC 31.2 g/dl (32.0-36.5); MEAN CORPUSCULAR VOLUME 92.8 fl (80.0-96.0); MONO # 0.5 10^3/uL (0.0-0.8); MONO % 6.5 % (2.0-8.0); NEUTROPHILS # 6.5 10^3/uL (1.5-8.5); NEUTROPHILS % 83.7 % (36.0-66.0); PLATELET COUNT, AUTOMATED 175 10^3/uL (150-450); RED BLOOD COUNT 3.04 10^6/uL (4.30-6.10); WHITE BLOOD COUNT 7.7 10^3/uL (4.0-10.0)
[2022-08-06 08:46] LABS: CALCIUM LEVEL 8.7 MG/DL (8.3-10.6); CREATININE FOR GFR 1.49 MG/DL (0.70-1.30); GLOMERULAR FILTRATION RATE 48.9 (>42); POTASSIUM SERUM 4.5 MMOL/L (3.5-5.1)
[2022-08-06 09:21] VITALS: BP 125/70
[2022-08-06] MEDS: APIXABAN 5 MG TAB (ELIQUIS) PO SCH (09:21)
[2022-08-06] MEDS: VITAMIN D 1,000 INTERNATIONAL UNITS TABLET PO SCH (09:21)
[2022-08-06] MEDS: FERROUS GLUCONATE 324 MG TAB PO SCH (09:21)
[2022-08-06] MEDS: METOPROLOL TART 12.5 MG PER 1/2 TAB PO SCH (09:21)
[2022-08-06] MEDS: DOCUSATE SODIUM 100MG CAPSULE PO SCH (09:21)
[2022-08-06] MEDS: FOLIC ACID 1MG TAB PO SCH (09:21)
[2022-08-06] MEDS: LIDOCAINE 5% (LIDODERM) PATCH TD SCH (09:22)
[2022-08-06] MEDS: INSULIN LISPRO (NovoLOG) PER UNIT SC SCH ×2 (09:22→12:41)
[2022-08-06] MEDS: SODIUM CHLORIDE NASAL 0.65% SPRAY BTL (OCEAN) SCH (09:23)
[2022-08-06] MEDS ORDERED: PRED10TA2 PO (11:06)
[2022-08-06] MEDS ORDERED: CEFD300C41 PO (11:06)
[2022-08-06] MEDS ORDERED: VENTAER INH (17:40)
== END 2022-08-06 13:52 | disposition home or self-care (01) | DRG 177 ==
LOC: M ED 12:09 → EDBD 12:09 → M ED INP 15:27 → ENRESERV 08-04 14:36 → M MSPAV 08-04 17:19
PROVIDERS: ADMIT Family Medicine; ATTEND Internal Medicine Nephrology
PROC: XW033E5 Introduction of Remdesivir Anti-infective into Peripheral Vein, Percutaneous Approach, New Technology Group 5 (ICD-10-PCS; principal; 2022-08-03)
PROC: 3E0333Z Introduction of Anti-inflammatory into Peripheral Vein, Percutaneous Approach (ICD-10-PCS; 2022-08-05)
DX: U07.1 COVID-19 (principal); J96.01 Acute respiratory failure with hypoxia; I50.33 Acute on chronic diastolic (congestive) heart failure; J15.9 Unspecified bacterial pneumonia; I13.0 Hypertensive heart and chronic kidney disease with heart failure and stage 1 through stage 4 chronic kidney disease, or unspecified chronic kidney disease; J84.9 Interstitial pulmonary disease, unspecified; I48.91 Unspecified atrial fibrillation; E11.65 Type 2 diabetes mellitus with hyperglycemia; D64.9 Anemia, unspecified; E53.8 Deficiency of other specified B group vitamins; E55.9 Vitamin D deficiency, unspecified; N40.1 Benign prostatic hyperplasia with lower urinary tract symptoms; I27.20 Pulmonary hypertension, unspecified; N18.30 Chronic kidney disease, stage 3 unspecified; E11.22 Type 2 diabetes mellitus with diabetic chronic kidney disease; Z79.82 Long term (current) use of aspirin; Z95.2 Presence of prosthetic heart valve; Z79.01 Long term (current) use of anticoagulants; Z79.899 Other long term (current) drug therapy

== ENCOUNTER → 2022-09-02 | Outpatient (CLI) | payer OTHER ==
[~2022-09-02] MED LIST changes: +CEFD300C41 PO; +ELIQ5TAB PO; +FURO40TA2 PO; +LIDO5DIS41 TD; +LISI10TA22 PO; +METO1TAB87 PO; +OFEV1CAP2 PO; +PRED10TA2 PO; +VENTAER INH; +med rec comment
[2022-09-02 14:06] LABS: BILIRUBIN,DIRECT 0.2 MG/DL (<0.4)
[2022-09-02 14:07] LABS: ALBUMIN 3.4 G/DL (3.2-5.2); BILIRUBIN,TOTAL 0.4 MG/DL (0.3-1.2); CALCIUM LEVEL 8.9 MG/DL (8.3-10.6); CREATININE FOR GFR 1.66 MG/DL (0.70-1.30); GLOMERULAR FILTRATION RATE 43.2 (>42); PHOSPHORUS LEVEL 3.5 MG/DL (2.4-5.1); POTASSIUM SERUM 5.1 MMOL/L (3.5-5.1); TOTAL PROTEIN 7.2 G/DL (5.7-8.2)
== END ==
LOC: M PLALAB 10:09
PROVIDERS: ATTEND Internal Medicine Pulmonary Disease
DX: J84.112 Idiopathic pulmonary fibrosis (principal)

== ENCOUNTER 2022-10-07 16:31 | Inpatient (IN) | payer MEDICARE, OTHER ==
[~2022-10-07] VITALS: Ht 180.3 cm; Wt 85.6 kg
[2022-10-07 17:37] LABS: BASO # 0.1 10^3/uL (0.0-0.2); BASO % 0.6 % (0.0-1.0); EOS # 0.4 10^3/uL (0.0-0.5); EOS % 3.1 % (0.0-3.0); LYMPH % 8.6 % (24.0-44.0); MEAN CORPUSCULAR HEMOGLOBIN 31.2 pg (27.0-33.0); MONO # 0.8 10^3/uL (0.0-0.8); MONO % 6.8 % (2.0-8.0); NEUTROPHILS # 9.6 10^3/uL (1.5-8.5); NEUTROPHILS % 80.1 % (36.0-66.0); PLATELET COUNT, AUTOMATED 363 10^3/uL (150-450); RED BLOOD COUNT 2.02 10^6/uL (4.30-6.10)
[2022-10-07 17:39] LABS: HEMOGLOBIN 6.3 g/dl (13.5-17.5)
[2022-10-07 17:49] LABS: INR 1.36
[2022-10-07 17:57] LABS: CPK CREATINE PHOSPHOKINASE 38 U/L (46-171)
[2022-10-07 17:58] LABS: IRON (FE) 54 UG/DL (65-175); PERCENT SATURATION 16.7 % (19.7-50.0); TOTAL IRON BINDING CAPACITY 323 UG/DL (250-425)
[2022-10-07 18:01] LABS: RSV AMPLIFICATION NEGATIVE (NEGATIVE)
[2022-10-07 18:02] LABS: ALBUMIN 3.1 G/DL (3.2-5.2); ALKALINE PHOSPHATASE 91 U/L (46-116); ALT/SGPT 24 U/L (7.0-40); AST/SGOT 28 U/L (<34); BILIRUBIN,TOTAL 0.4 MG/DL (0.3-1.2); BLOOD UREA NITROGEN 58 MG/DL (9-23); CALCIUM LEVEL 9.3 MG/DL (8.3-10.6); CARBON DIOXIDE LEVEL 25 MMOL/L (20-31); CHLORIDE LEVEL 101 MMOL/L (98-107); CK-MB VALUE MASS < 1.0 NG/ML (<3.6); CREATININE FOR GFR 1.69 MG/DL (0.70-1.30); FERRITIN 42.1 NG/ML (10.5-307.3); GLOMERULAR FILTRATION RATE 42.3 (>42); GLUCOSE, FASTING 130 MG/DL (74-106); MB/CK RELATIVE INDEX 2.63 (< OR =4); POTASSIUM SERUM 4.2 MMOL/L (3.5-5.1); SODIUM LEVEL 137 MMOL/L (136-145); TOTAL PROTEIN 6.9 G/DL (5.7-8.2)
[2022-10-07 18:45] VITALS: BP 135/62
[2022-10-07] MEDS ORDERED: ACETAMINOPHEN TAB 650MG DOSE (2X325MG) PO PRN (18:45)
[2022-10-07 19:00] VITALS: BP 127/61
[2022-10-07] MEDS ORDERED: GLUCAGON INJ 1MG VIAL SC PRN (20:00)
[2022-10-07] MEDS ORDERED: DEXTROSE 50% 50ML SYRINGE IV PRN (20:00)
[2022-10-07] MEDS ORDERED: GLUCOSE 4GM CHEW TABLET PO PRN (20:00)
[2022-10-07 20:40] LABS: FOLATE > 24.00 NG/ML (>5.4); VITAMIN B12 LEVEL 297 PG/ML (211-911)
[2022-10-07] MEDS ORDERED: HOME MED LIST COMPLETE! XX SCH (20:55)
[2022-10-07] MEDS ORDERED: LIDOCAINE 5% (LIDODERM) PATCH TD PRN (21:35)
[2022-10-07] MEDS: INSULIN LISPRO (NovoLOG) PER UNIT SC SCH (22:00)
[2022-10-07 22:11] VITALS: BP 159/78
[2022-10-07] MEDS: METOPROLOL TART 12.5 MG PER 1/2 TAB PO SCH (22:20)
[2022-10-07] MEDS: SUCRALFATE 1 GM TAB PO SCH (22:20)
[2022-10-07] MEDS: ATORVASTATIN 20 MG TAB PO SCH (22:20)
[2022-10-07] MEDS: PANTOPRAZOLE 40MG VIAL IV SCH (22:21)
[2022-10-08] VITALS (10 sets, daily range): BP systolic 127–149; BP diastolic 58–67
[2022-10-08 01:13] LABS: HEMATOCRIT 24.7 % (42.0-52.0); HEMOGLOBIN 7.8 g/dl (13.5-17.5); MEAN CORPUSCULAR HEMOGLOBIN 31.3 pg (27.0-33.0); MEAN CORPUSCULAR HGB CONC 31.6 g/dl (32.0-36.5); MEAN CORPUSCULAR VOLUME 99.2 fl (80.0-96.0); PLATELET COUNT, AUTOMATED 296 10^3/uL (150-450); RED BLOOD COUNT 2.49 10^6/uL (4.30-6.10); WHITE BLOOD COUNT 9.2 10^3/uL (4.0-10.0)
[2022-10-08] MEDS: FERROUS GLUCONATE 324 MG TAB PO SCH ×3 (01:29→20:15)
[2022-10-08] MEDS: TERAZOSIN 1 MG CAP PO SCH ×2 (01:29→20:15)
[2022-10-08 06:38] LABS: ALBUMIN 2.9 G/DL (3.2-5.2); BILIRUBIN,TOTAL 1.2 MG/DL (0.3-1.2); CALCIUM LEVEL 8.7 MG/DL (8.3-10.6); CREATININE FOR GFR 1.65 MG/DL (0.70-1.30); GLOMERULAR FILTRATION RATE 43.5 (>42); MAGNESIUM LEVEL 1.8 MG/DL (1.8-2.4); POTASSIUM SERUM 4.5 MMOL/L (3.5-5.1); TOTAL PROTEIN 6.4 G/DL (5.7-8.2)
[2022-10-08] MEDS: INSULIN LISPRO (NovoLOG) PER UNIT SC SCH ×4 (07:30→21:00)
[2022-10-08 07:33] LABS: MEAN CORPUSCULAR HEMOGLOBIN 30.4 pg (27.0-33.0); MEAN CORPUSCULAR HGB CONC 30.8 g/dl (32.0-36.5); MEAN CORPUSCULAR VOLUME 98.9 fl (80.0-96.0); PLATELET COUNT, AUTOMATED 329 10^3/uL (150-450); RED BLOOD COUNT 2.63 10^6/uL (4.30-6.10); WHITE BLOOD COUNT 8.5 10^3/uL (4.0-10.0)
[2022-10-08] MEDS: SUCRALFATE 1 GM TAB PO SCH ×4 (08:12→20:14)
[2022-10-08] MEDS: FOLIC ACID 1MG TAB PO SCH (10:08)
[2022-10-08] MEDS: METOPROLOL TART 12.5 MG PER 1/2 TAB PO SCH ×2 (10:08→20:14)
[2022-10-08] MEDS: PANTOPRAZOLE 40MG VIAL IV SCH ×2 (10:09→20:13)
[2022-10-08] MEDS: FUROSEMIDE 40 MG TAB PO SCH (10:09)
[2022-10-08] MEDS: ATORVASTATIN 20 MG TAB PO SCH (20:14)
[2022-10-08 21:15] LABS: HEMATOCRIT 29.3 % (42.0-52.0); HEMOGLOBIN 9.3 g/dl (13.5-17.5)
[2022-10-09 06:00] VITALS: BP 136/63
[2022-10-09 06:08] LABS: BASO # 0.1 10^3/uL (0.0-0.2); BASO % 0.7 % (0.0-1.0); EOS # 0.6 10^3/uL (0.0-0.5); EOS % 7.7 % (0.0-3.0); HEMATOCRIT 27.8 % (42.0-52.0); HEMOGLOBIN 8.9 g/dl (13.5-17.5); LYMPH # 0.9 10^3/uL (1.5-5.0); LYMPH % 10.5 % (24.0-44.0); MEAN CORPUSCULAR HEMOGLOBIN 31.2 pg (27.0-33.0); MEAN CORPUSCULAR VOLUME 97.5 fl (80.0-96.0); MONO # 0.9 10^3/uL (0.0-0.8); MONO % 10.6 % (2.0-8.0); NEUTROPHILS # 5.8 10^3/uL (1.5-8.5); NEUTROPHILS % 70.1 % (36.0-66.0); PLATELET COUNT, AUTOMATED 321 10^3/uL (150-450); RED BLOOD COUNT 2.85 10^6/uL (4.30-6.10); WHITE BLOOD COUNT 8.3 10^3/uL (4.0-10.0)
[2022-10-09 06:41] LABS: CALCIUM LEVEL 8.3 MG/DL (8.3-10.6); CREATININE FOR GFR 1.41 MG/DL (0.70-1.30); GLOMERULAR FILTRATION RATE 52.2 (>42); POTASSIUM SERUM 4.5 MMOL/L (3.5-5.1)
[2022-10-09] MEDS: INSULIN LISPRO (NovoLOG) PER UNIT SC SCH ×4 (07:30→20:32)
[2022-10-09] MEDS: PANTOPRAZOLE 40MG VIAL IV SCH ×2 (08:14→20:29)
[2022-10-09] MEDS: FUROSEMIDE 40 MG TAB PO SCH (08:14)
[2022-10-09] MEDS: SUCRALFATE 1 GM TAB PO SCH ×4 (08:14→20:30)
[2022-10-09] MEDS: FOLIC ACID 1MG TAB PO SCH (08:14)
[2022-10-09] MEDS: METOPROLOL TART 12.5 MG PER 1/2 TAB PO SCH ×2 (08:16→20:29)
[2022-10-09] MEDS: FERROUS GLUCONATE 324 MG TAB PO SCH ×2 (08:18→20:30)
[2022-10-09] MEDS ORDERED: APIXABAN 5 MG TAB (ELIQUIS) PO SCH (09:00)
[2022-10-09] MEDS ORDERED: FERRIC CARBOXYMALTOSE INJ 750 MG, VIAL MATE ADAPTER 1 EACH in NS 250 ML IV ONE (13:00)
[2022-10-09 14:00] VITALS: BP 123/60
[2022-10-09] MEDS: ATORVASTATIN 20 MG TAB PO SCH (20:29)
[2022-10-09] MEDS: TERAZOSIN 1 MG CAP PO SCH (20:30)
[2022-10-09 20:52] VITALS: BP 122/59
[2022-10-09] MEDS ORDERED: ENTER DRUG NAME HERE (PATIENT'S OWN MED) PO SCH (21:00)
[2022-10-09 21:44] VITALS: O2SAT 93
[2022-10-10 06:29] VITALS: BP 123/58
[2022-10-10] MEDS: INSULIN LISPRO (NovoLOG) PER UNIT SC SCH (07:30)
[2022-10-10] MEDS: SUCRALFATE 1 GM TAB PO SCH (07:30)
[2022-10-10 08:18] LABS: BASO # 0.1 10^3/uL (0.0-0.2); BASO % 0.6 % (0.0-1.0); EOS # 0.6 10^3/uL (0.0-0.5); EOS % 6.5 % (0.0-3.0); HEMATOCRIT 29.9 % (42.0-52.0); HEMOGLOBIN 9.1 g/dl (13.5-17.5); LYMPH # 0.8 10^3/uL (1.5-5.0); LYMPH % 9.2 % (24.0-44.0); MEAN CORPUSCULAR HEMOGLOBIN 30.5 pg (27.0-33.0); MEAN CORPUSCULAR HGB CONC 30.4 g/dl (32.0-36.5); MEAN CORPUSCULAR VOLUME 100.3 fl (80.0-96.0); MONO # 0.9 10^3/uL (0.0-0.8); MONO % 10.1 % (2.0-8.0); NEUTROPHILS # 6.4 10^3/uL (1.5-8.5); NEUTROPHILS % 73.1 % (36.0-66.0); PLATELET COUNT, AUTOMATED 326 10^3/uL (150-450); RED BLOOD COUNT 2.98 10^6/uL (4.30-6.10); WHITE BLOOD COUNT 8.8 10^3/uL (4.0-10.0)
[2022-10-10 08:42] LABS: CREATININE FOR GFR 1.34 MG/DL (0.70-1.30); GLOMERULAR FILTRATION RATE 55.3 (>42); POTASSIUM SERUM 4.1 MMOL/L (3.5-5.1)
[2022-10-10 09:28] LABS: HEMOGLOBIN A1c 4.7 % (4.0-6.0)
[2022-10-10] MEDS ORDERED: PANT40TA29 PO (09:33)
[2022-10-10] MEDS: FOLIC ACID 1MG TAB PO SCH (09:49)
[2022-10-10 09:50] VITALS: BP 126/58
[2022-10-10] MEDS: FERROUS GLUCONATE 324 MG TAB PO SCH (09:50)
[2022-10-10] MEDS: FUROSEMIDE 40 MG TAB PO SCH (09:50)
[2022-10-10] MEDS: PANTOPRAZOLE 40MG VIAL IV SCH (09:50)
[2022-10-10] MEDS: METOPROLOL TART 12.5 MG PER 1/2 TAB PO SCH (09:50)
== END 2022-10-10 11:28 | disposition home or self-care (01) | DRG 812 ==
LOC: M ED 16:31 → M ED INP 18:42 → ENRESERV 20:32 → M MSPAV 10-08
PROVIDERS: ADMIT Internal Medicine; ATTEND Internal Medicine
PROC: 30233N1 Transfusion of Nonautologous Red Blood Cells into Peripheral Vein, Percutaneous Approach (ICD-10-PCS; principal; 2022-10-07)
DX: D50.9 Iron deficiency anemia, unspecified (principal); I50.32 Chronic diastolic (congestive) heart failure; I48.20 Chronic atrial fibrillation, unspecified; A08.11 Acute gastroenteropathy due to Norwalk agent; J84.9 Interstitial pulmonary disease, unspecified; J90 Pleural effusion, not elsewhere classified; J84.112 Idiopathic pulmonary fibrosis; R53.83 Other fatigue; E11.22 Type 2 diabetes mellitus with diabetic chronic kidney disease; J45.909 Unspecified asthma, uncomplicated; D47.2 Monoclonal gammopathy; R63.4 Abnormal weight loss; R53.1 Weakness; N18.9 Chronic kidney disease, unspecified; N40.0 Benign prostatic hyperplasia without lower urinary tract symptoms; R09.02 Hypoxemia; E78.5 Hyperlipidemia, unspecified; D63.1 Anemia in chronic kidney disease; Z79.899 Other long term (current) drug therapy; Z95.2 Presence of prosthetic heart valve; Z79.01 Long term (current) use of anticoagulants; Z79.84 Long term (current) use of oral hypoglycemic drugs

== ENCOUNTER 2022-11-28 11:43 | Inpatient (IN) | payer MEDICARE, OTHER ==
[2022-11-28] VITALS (15 sets, daily range): BP systolic 125–161; BP diastolic 59–72
[~2022-11-28] VITALS: Ht 180.3 cm; Wt 95.6 kg
[~2022-11-28 11:43] MED LIST changes: -LIDO5DIS41 TD; +LIDO5DIS41 TOP; +PANT40TA29 PO
[2022-11-28] MEDS ORDERED: NS 1,000 ML IV SCH (12:05)
[2022-11-28 12:20] LABS: VENOUS BASE EXCESS -7.2 (-2.0-2.0); VENOUS HCO3 18.7 MEQ/L (23.0-27.0); VENOUS O2 SATURATION 94.1 % (60.0-80.0); VENOUS PARTIAL PRESSURE CO2 39.2 mmHg (38.0-50.0); VENOUS PARTIAL PRESSURE O2 80.3 mmHg (30.0-50.0); VENOUS PH 7.296 UNITS (7.330-7.430); VENOUS STANDARD HCO3 18.5 MEQ/L; VENOUS TOTAL CO2 19.9 MEQ/L (24.0-28.0)
[2022-11-28 12:33] LABS: BASO % 0.4 % (0.0-1.0); EOS # 0.1 10^3/uL (0.0-0.5); EOS % 1.1 % (0.0-3.0); LYMPH # 0.7 10^3/uL (1.5-5.0); LYMPH % 7.7 % (24.0-44.0); MEAN CORPUSCULAR HEMOGLOBIN 33.1 pg (27.0-33.0); MEAN CORPUSCULAR HGB CONC 28.7 g/dl (32.0-36.5); MONO # 0.7 10^3/uL (0.0-0.8); MONO % 7.6 % (2.0-8.0); NEUTROPHILS # 7.4 10^3/uL (1.5-8.5); NEUTROPHILS % 82.6 % (36.0-66.0); PLATELET COUNT, AUTOMATED 273 10^3/uL (150-450); RED BLOOD COUNT 1.48 10^6/uL (4.30-6.10)
[2022-11-28 12:37] LABS: HEMATOCRIT 17.1 % (42.0-52.0); HEMOGLOBIN 4.9 g/dl (13.5-17.5); MEAN CORPUSCULAR VOLUME 115.5 fl (80.0-96.0)
[2022-11-28 12:46] LABS: INR 1.26; PROTHROMBIN TIME 16.1 SECONDS (12.5-14.5)
[2022-11-28 12:48] LABS: ANISOCYTOSIS 2+; POLYCHROMASIA 1+
[2022-11-28 12:49] LABS: OVALOCYTES 1+; POIKILOCYTOSIS 1+; TEAR DROP CELLS 1+
[2022-11-28 12:50] LABS: PLATELET ESTIMATE NORMAL (NORMAL)
[2022-11-28 12:55] LABS: CK-MB VALUE MASS < 1.0 NG/ML (<3.6)
[2022-11-28 12:57] LABS: CPK CREATINE PHOSPHOKINASE 42 U/L (46-171); MB/CK RELATIVE INDEX 2.38 (< OR =4)
[2022-11-28 12:58] LABS: ALBUMIN 3.1 G/DL (3.2-5.2); ALKALINE PHOSPHATASE 71 U/L (46-116); ALT/SGPT 18 U/L (7.0-40); AST/SGOT 18 U/L (<34); BILIRUBIN,DIRECT < 0.1 MG/DL (<0.4); BILIRUBIN,TOTAL 0.2 MG/DL (0.3-1.2); BLOOD UREA NITROGEN 44 MG/DL (9-23); CARBON DIOXIDE LEVEL 21 MMOL/L (20-31); CHLORIDE LEVEL 109 MMOL/L (98-107); CREATININE FOR GFR 1.38 MG/DL (0.70-1.30); GLOMERULAR FILTRATION RATE 53.5 (>42); GLUCOSE, FASTING 146 MG/DL (74-106); POTASSIUM SERUM 4.2 MMOL/L (3.5-5.1); SODIUM LEVEL 137 MMOL/L (136-145); TOTAL PROTEIN 6.2 G/DL (5.7-8.2)
[2022-11-28 13:07] LABS: RSV AMPLIFICATION NEGATIVE (NEGATIVE)
[2022-11-28] MEDS ORDERED: PANT40TA29 PO (15:06)
[2022-11-28] MEDS ORDERED: HOME MED LIST COMPLETE! XX SCH (15:10)
[2022-11-28] MEDS ORDERED: MOM 30ML SUSPENSION UDC PO ONE (15:25)
[2022-11-28] MEDS ORDERED: BISACODYL 5MG TAB PO ONE ×2 (15:30→20:00)
[2022-11-28] MEDS ORDERED: GLUCOSE 4GM CHEW TABLET PO PRN (15:55)
[2022-11-28] MEDS ORDERED: DEXTROSE 50% 50ML SYRINGE IV PRN (15:55)
[2022-11-28] MEDS ORDERED: GLUCAGON INJ 1MG VIAL SC PRN (15:55)
[2022-11-28] MEDS ORDERED: ACETAMINOPHEN TAB 650MG DOSE (2X325MG) PO PRN (15:55)
[2022-11-28] MEDS: LIDOCAINE 5% (LIDODERM) PATCH TOP SCH (16:52)
[2022-11-28] MEDS ORDERED: GOLYTELY SOLN 4000 ML BTL PO ONE (17:00)
[2022-11-28] MEDS: INSULIN LISPRO (NovoLOG) PER UNIT SC SCH (17:37)
[2022-11-28] MEDS: NS 1,000 ML IV SCH (18:25)
[2022-11-28] MEDS: TERAZOSIN 1 MG CAP PO SCH (20:50)
[2022-11-28] MEDS: ATORVASTATIN 20 MG TAB PO SCH (20:51)
[2022-11-28] MEDS: FERROUS GLUCONATE 324 MG TAB PO SCH (20:51)
[2022-11-28] MEDS: METOPROLOL TART 12.5 MG PER 1/2 TAB PO SCH (20:51)
[2022-11-28 20:59] LABS: HEMATOCRIT 21.9 % (42.0-52.0)
[2022-11-28 21:00] LABS: HEMOGLOBIN 6.9 g/dl (13.5-17.5)
[2022-11-29] VITALS (16 sets, daily range): BP systolic 111–144; BP diastolic 55–65
[2022-11-29] MEDS: NS 1,000 ML IV SCH ×2 (03:19→11:17)
[2022-11-29 04:03] LABS: HEMATOCRIT 24.8 % (42.0-52.0); MEAN CORPUSCULAR HEMOGLOBIN 31.6 pg (27.0-33.0); MEAN CORPUSCULAR HGB CONC 32.3 g/dl (32.0-36.5); PLATELET COUNT, AUTOMATED 257 10^3/uL (150-450); RED BLOOD COUNT 2.53 10^6/uL (4.30-6.10); WHITE BLOOD COUNT 9.4 10^3/uL (4.0-10.0)
[2022-11-29 04:27] LABS: CALCIUM LEVEL 7.9 MG/DL (8.3-10.6); CREATININE FOR GFR 1.27 MG/DL (0.70-1.30); GLOMERULAR FILTRATION RATE 58.9 (>42); POTASSIUM SERUM 4.6 MMOL/L (3.5-5.1)
[2022-11-29] MEDS: INSULIN LISPRO (NovoLOG) PER UNIT SC SCH ×5 (06:00→21:00)
[2022-11-29] MEDS ORDERED: propofoL 200 MG/20 ML VIAL As Ordered ONE (08:04)
[2022-11-29] MEDS ORDERED: LIDOCAINE 2% 100MG/5ML SDV (FOR ANES.) As Ordered ONE (08:04)
[2022-11-29] MEDS ORDERED: fentaNYL 100 MCG/2 ML INJECTION IV PRN (08:50)
[2022-11-29] MEDS ORDERED: ONDANSETRON 4MG 2ML VIAL IV PRN (08:50)
[2022-11-29] MEDS ORDERED: PANTOPRAZOLE 40MG TAB (PROTONIX) PO SCH (09:00)
[2022-11-29] MEDS: FERROUS GLUCONATE 324 MG TAB PO SCH ×2 (11:16→21:50)
[2022-11-29] MEDS: FOLIC ACID 1MG TAB PO SCH (11:16)
[2022-11-29] MEDS: METOPROLOL TART 12.5 MG PER 1/2 TAB PO SCH ×2 (11:16→21:00)
[2022-11-29] MEDS: VITAMIN D 1,000 INTERNATIONAL UNITS TABLET PO SCH (11:16)
[2022-11-29] MEDS: LIDOCAINE 5% (LIDODERM) PATCH TOP SCH (11:17)
[2022-11-29] MEDS: SUCRALFATE SUSP 1GM/10ML UD PO SCH ×3 (11:37→21:50)
[2022-11-29 13:12] LABS: HEMATOCRIT 26.7 % (42.0-52.0); HEMOGLOBIN 8.4 g/dl (13.5-17.5)
[2022-11-29 19:04] LABS: HEMOGLOBIN 8.1 g/dl (13.5-17.5)
[2022-11-29] MEDS: TERAZOSIN 1 MG CAP PO SCH (21:00)
[2022-11-29] MEDS: PANTOPRAZOLE 40MG TAB (PROTONIX) PO SCH (21:50)
[2022-11-29] MEDS: ATORVASTATIN 20 MG TAB PO SCH (21:53)
[2022-11-30] VITALS (13 sets, daily range): BP systolic 118–163; BP diastolic 54–70
[2022-11-30] MEDS ORDERED: VANCOMYCIN HCL 1,000 MG, VIAL MATE ADAPTER 1 EACH in NS 250 ML IV ONE ×3
[2022-11-30] MEDS: NS 1,000 ML IV SCH ×3 (00:13→20:24)
[2022-11-30] MEDS ORDERED: VANCOMYCIN HCL 750 MG, VIAL MATE ADAPTER 1 EACH in D5W 250 ML IV ONE (01:00)
[2022-11-30 06:10] LABS: HEMATOCRIT 21.7 % (42.0-52.0); MEAN CORPUSCULAR HEMOGLOBIN 32.1 pg (27.0-33.0); MEAN CORPUSCULAR HGB CONC 31.3 g/dl (32.0-36.5); MEAN CORPUSCULAR VOLUME 102.4 fl (80.0-96.0); PLATELET COUNT, AUTOMATED 229 10^3/uL (150-450); RED BLOOD COUNT 2.12 10^6/uL (4.30-6.10); WHITE BLOOD COUNT 8.7 10^3/uL (4.0-10.0)
[2022-11-30 06:23] LABS: BLOOD UREA NITROGEN 32 MG/DL (9-23); CALCIUM LEVEL 7.9 MG/DL (8.3-10.6); CARBON DIOXIDE LEVEL 22 MMOL/L (20-31); CHLORIDE LEVEL 113 MMOL/L (98-107); CREATININE FOR GFR 1.16 MG/DL (0.70-1.30); GLOMERULAR FILTRATION RATE > 60.0 (>42); GLUCOSE, FASTING 94 MG/DL (74-106); POTASSIUM SERUM 4.5 MMOL/L (3.5-5.1); SODIUM LEVEL 140 MMOL/L (136-145)
[2022-11-30 06:28] LABS: HEMOGLOBIN 6.8 g/dl (13.5-17.5)
[2022-11-30] MEDS: INSULIN LISPRO (NovoLOG) PER UNIT SC SCH ×4 (07:30→20:09)
[2022-11-30] MEDS: SUCRALFATE SUSP 1GM/10ML UD PO SCH ×4 (08:08→20:23)
[2022-11-30 09:16] LABS: ERYTHROCYTE SEDIMENTATION RATE 25 mm/hr (0-20)
[2022-11-30] MEDS: VANCOMYCIN HCL 750 MG, VIAL MATE ADAPTER 1 EACH in D5W 250 ML IV SCH ×2 (09:34→20:23)
[2022-11-30] MEDS: METOPROLOL TART 12.5 MG PER 1/2 TAB PO SCH ×2 (09:37→20:23)
[2022-11-30] MEDS: FERROUS GLUCONATE 324 MG TAB PO SCH ×2 (09:37→20:23)
[2022-11-30] MEDS: FOLIC ACID 1MG TAB PO SCH (09:37)
[2022-11-30] MEDS: VITAMIN D 1,000 INTERNATIONAL UNITS TABLET PO SCH (09:37)
[2022-11-30] MEDS: PANTOPRAZOLE 40MG TAB (PROTONIX) PO SCH ×2 (09:37→20:22)
[2022-11-30] MEDS: LIDOCAINE 5% (LIDODERM) PATCH TOP SCH (09:37)
[2022-11-30 17:54] LABS: HEMATOCRIT 28.8 % (42.0-52.0)
[2022-11-30] MEDS: ATORVASTATIN 20 MG TAB PO SCH (20:22)
[2022-11-30] MEDS: TERAZOSIN 1 MG CAP PO SCH (20:22)
[2022-12-01] VITALS (8 sets, daily range): BP systolic 115–146; BP diastolic 54–75
[2022-12-01 06:24] LABS: HEMATOCRIT 25.6 % (42.0-52.0); HEMOGLOBIN 7.9 g/dl (13.5-17.5); MEAN CORPUSCULAR HGB CONC 30.9 g/dl (32.0-36.5); MEAN CORPUSCULAR VOLUME 100.4 fl (80.0-96.0); PLATELET COUNT, AUTOMATED 197 10^3/uL (150-450); RED BLOOD COUNT 2.55 10^6/uL (4.30-6.10); WHITE BLOOD COUNT 7.3 10^3/uL (4.0-10.0)
[2022-12-01 06:49] LABS: BLOOD UREA NITROGEN 34 MG/DL (9-23); CALCIUM LEVEL 7.9 MG/DL (8.3-10.6); CARBON DIOXIDE LEVEL 22 MMOL/L (20-31); CHLORIDE LEVEL 114 MMOL/L (98-107); CREATININE FOR GFR 1.18 MG/DL (0.70-1.30); GLOMERULAR FILTRATION RATE > 60.0 (>42); GLUCOSE, FASTING 101 MG/DL (74-106); POTASSIUM SERUM 5.4 MMOL/L (3.5-5.1); SODIUM LEVEL 140 MMOL/L (136-145)
[2022-12-01] MEDS: INSULIN LISPRO (NovoLOG) PER UNIT SC SCH (07:30)
[2022-12-01] MEDS: SUCRALFATE SUSP 1GM/10ML UD PO SCH ×4 (07:30→20:32)
[2022-12-01 07:38] LABS: IRON (FE) 22 UG/DL (65-175); PERCENT SATURATION 9.6 % (19.7-50.0); TOTAL IRON BINDING CAPACITY 228 UG/DL (250-425)
[2022-12-01 07:41] LABS: FOLATE > 24.0 NG/ML (>5.4); VITAMIN B12 LEVEL 133 PG/ML (211-911)
[2022-12-01] MEDS ORDERED: PATIROMER SORBITEX CALCIUM 8.4 GM POWDER PACKET (VELTASSA) PO ONE (08:00)
[2022-12-01] MEDS: FOLIC ACID 1MG TAB PO SCH (11:45)
[2022-12-01] MEDS: PANTOPRAZOLE 40MG TAB (PROTONIX) PO SCH ×2 (11:45→20:29)
[2022-12-01] MEDS: LIDOCAINE 5% (LIDODERM) PATCH TOP SCH (11:45)
[2022-12-01] MEDS: VITAMIN D 1,000 INTERNATIONAL UNITS TABLET PO SCH (11:45)
[2022-12-01] MEDS: METOPROLOL TART 12.5 MG PER 1/2 TAB PO SCH ×2 (11:49→20:32)
[2022-12-01 12:20] LABS: HEMATOCRIT 25.7 % (42.0-52.0); HEMOGLOBIN 8.1 g/dl (13.5-17.5)
[2022-12-01] MEDS ORDERED: FERRIC CARBOXYMALTOSE INJ 750 MG, VIAL MATE ADAPTER 1 EACH in NS 250 ML IV ONE (13:00)
[2022-12-01] MEDS: CYANOCOBALAMIN 1,000MCG/ML 1ML VIAL IM SCH (16:32)
[2022-12-01] MEDS: ATORVASTATIN 20 MG TAB PO SCH (20:29)
[2022-12-01] MEDS: TERAZOSIN 1 MG CAP PO SCH (20:33)
[2022-12-02 05:47] VITALS: BP 135/55
[2022-12-02 06:49] LABS: HEMATOCRIT 23.4 % (42.0-52.0); HEMOGLOBIN 7.3 g/dl (13.5-17.5); MEAN CORPUSCULAR HEMOGLOBIN 32.2 pg (27.0-33.0); MEAN CORPUSCULAR HGB CONC 31.2 g/dl (32.0-36.5); MEAN CORPUSCULAR VOLUME 103.1 fl (80.0-96.0); PLATELET COUNT, AUTOMATED 187 10^3/uL (150-450); RED BLOOD COUNT 2.27 10^6/uL (4.30-6.10); WHITE BLOOD COUNT 5.9 10^3/uL (4.0-10.0)
[2022-12-02 07:15] LABS: CALCIUM LEVEL 9.1 MG/DL (8.3-10.6); CREATININE FOR GFR 1.31 MG/DL (0.70-1.30); GLOMERULAR FILTRATION RATE 56.8 (>42); POTASSIUM SERUM 4.8 MMOL/L (3.5-5.1)
[2022-12-02] MEDS: LIDOCAINE 5% (LIDODERM) PATCH TOP SCH (09:00)
[2022-12-02] MEDS: SUCRALFATE SUSP 1GM/10ML UD PO SCH ×2 (09:04→12:20)
[2022-12-02] MEDS: FOLIC ACID 1MG TAB PO SCH (09:05)
[2022-12-02] MEDS: PANTOPRAZOLE 40MG TAB (PROTONIX) PO SCH (09:05)
[2022-12-02 09:06] VITALS: BP 126/56
[2022-12-02] MEDS: METOPROLOL TART 12.5 MG PER 1/2 TAB PO SCH (09:06)
[2022-12-02] MEDS: VITAMIN D 1,000 INTERNATIONAL UNITS TABLET PO SCH (09:06)
[2022-12-02] MEDS: CYANOCOBALAMIN 1,000MCG/ML 1ML VIAL IM SCH (09:10)
[2022-12-02 12:15] LABS: HEMATOCRIT 25.8 % (42.0-52.0); HEMOGLOBIN 7.7 g/dl (13.5-17.5)
[2022-12-02 12:45] LABS: BLOOD UREA NITROGEN 33 MG/DL (9-23); CALCIUM LEVEL 8.4 MG/DL (8.3-10.6); CARBON DIOXIDE LEVEL 22 MMOL/L (20-31); CHLORIDE LEVEL 112 MMOL/L (98-107); CREATININE FOR GFR 1.21 MG/DL (0.70-1.30); GLOMERULAR FILTRATION RATE > 60.0 (>42); GLUCOSE, FASTING 123 MG/DL (74-106); POTASSIUM SERUM 4.5 MMOL/L (3.5-5.1); SODIUM LEVEL 140 MMOL/L (136-145)
[2022-12-02] MEDS ORDERED: FERR32TA PO (13:05)
[2022-12-02] MEDS ORDERED: SUCR1TAB56 PO (13:05)
[2022-12-02] MEDS ORDERED: PANT40TA29 PO (13:05)
[2022-12-02] MEDS ORDERED: B-12100021 PO (13:05)
[2022-12-02 14:00] VITALS: BP 125/51
[2022-12-03] MEDS ORDERED: FERROUS GLUCONATE 324 MG TAB PO SCH (09:00)
== END 2022-12-02 14:50 | disposition home health service (06) | DRG 378 ==
LOC: M ED 11:43 → M ED INP 13:18 → ENRESERV 13:47 → M PCU 14:37 → ENRESERV 15:56 → M MSPAV 12-01 15:01
PROVIDERS: ADMIT Internal Medicine; ATTEND Student in an Organized Health Care Education/Training Program
PROC: 30233N1 Transfusion of Nonautologous Red Blood Cells into Peripheral Vein, Percutaneous Approach (ICD-10-PCS; 2022-11-28)
PROC: 0DJD8ZZ Inspection of Lower Intestinal Tract, Via Natural or Artificial Opening Endoscopic (ICD-10-PCS; 2022-11-29)
PROC: 0DJ08ZZ Inspection of Upper Intestinal Tract, Via Natural or Artificial Opening Endoscopic (ICD-10-PCS; principal; 2022-11-29 08:00)
DX: K26.4 Chronic or unspecified duodenal ulcer with hemorrhage (principal); I50.32 Chronic diastolic (congestive) heart failure; I48.20 Chronic atrial fibrillation, unspecified; D62 Acute posthemorrhagic anemia; D50.9 Iron deficiency anemia, unspecified; J84.112 Idiopathic pulmonary fibrosis; D51.0 Vitamin B12 deficiency anemia due to intrinsic factor deficiency; E55.9 Vitamin D deficiency, unspecified; E11.9 Type 2 diabetes mellitus without complications; N40.0 Benign prostatic hyperplasia without lower urinary tract symptoms; E78.5 Hyperlipidemia, unspecified; Z79.84 Long term (current) use of oral hypoglycemic drugs; Z79.899 Other long term (current) drug therapy; J45.909 Unspecified asthma, uncomplicated; J44.9 Chronic obstructive pulmonary disease, unspecified; K57.30 Diverticulosis of large intestine without perforation or abscess without bleeding; Z79.01 Long term (current) use of anticoagulants; Z95.2 Presence of prosthetic heart valve

== ENCOUNTER 2022-12-18 13:21 | Inpatient (IN) | payer MEDICARE, OTHER ==
[~2022-12-18] VITALS: Ht 180.3 cm; Wt 91.5 kg
[2022-12-18] VITALS (12 sets, daily range): BP systolic 121–151; BP diastolic 58–78
[~2022-12-18 13:21] MED LIST changes: +B-12100021 PO; +FERR32TA PO; +SUCR1TAB56 PO
[2022-12-18 14:45] LABS: BASO % 0.1 % (0.0-1.0); EOS # 0.1 10^3/uL (0.0-0.5); EOS % 0.6 % (0.0-3.0); LYMPH # 0.6 10^3/uL (1.5-5.0); LYMPH % 6.5 % (24.0-44.0); MEAN CORPUSCULAR HEMOGLOBIN 32.7 pg (27.0-33.0); MEAN CORPUSCULAR HGB CONC 30.1 g/dl (32.0-36.5); MEAN CORPUSCULAR VOLUME 108.8 fl (80.0-96.0); MONO # 0.7 10^3/uL (0.0-0.8); NEUTROPHILS % 85.4 % (36.0-66.0); PLATELET COUNT, AUTOMATED 295 10^3/uL (150-450); RED BLOOD COUNT 1.13 10^6/uL (4.30-6.10); WHITE BLOOD COUNT 9.3 10^3/uL (4.0-10.0)
[2022-12-18 14:46] LABS: INR 1.1; PROTHROMBIN TIME 14.4 SECONDS (12.5-14.5)
[2022-12-18 14:50] LABS: HEMATOCRIT 12.3 % (42.0-52.0); HEMOGLOBIN 3.7 g/dl (13.5-17.5)
[2022-12-18 14:52] LABS: ALBUMIN 2.7 G/DL (3.2-5.2); ALKALINE PHOSPHATASE 58 U/L (46-116); ALT/SGPT 15 U/L (7.0-40); AST/SGOT 21 U/L (<34); BILIRUBIN,DIRECT < 0.1 MG/DL (<0.4); BILIRUBIN,TOTAL 0.2 MG/DL (0.3-1.2); BLOOD UREA NITROGEN 58 MG/DL (9-23); CALCIUM LEVEL 7.3 MG/DL (8.3-10.6); CARBON DIOXIDE LEVEL 22 MMOL/L (20-31); CHLORIDE LEVEL 108 MMOL/L (98-107); CK-MB VALUE MASS < 1.0 NG/ML (<3.6); CPK CREATINE PHOSPHOKINASE 49 U/L (46-171); CREATININE FOR GFR 1.67 MG/DL (0.70-1.30); GLOMERULAR FILTRATION RATE 42.9 (>42); GLUCOSE, FASTING 137 MG/DL (74-106); MB/CK RELATIVE INDEX 2.04 (< OR =4); POTASSIUM SERUM 3.7 MMOL/L (3.5-5.1); SODIUM LEVEL 138 MMOL/L (136-145); TOTAL PROTEIN 5.3 G/DL (5.7-8.2)
[2022-12-18] MEDS ORDERED: PANTOPRAZOLE 40MG VIAL IV ONE (15:10)
[2022-12-18] MEDS ORDERED: D5W/0.45% SODIUM CHLORIDE 1,000 ML IV SCH (15:55)
[2022-12-18] MEDS: PANTOPRAZOLE SODIUM 40 MG in D5W 50 ML IV SCH ×2 (16:00→21:58)
[2022-12-18] MEDS ORDERED: DEXTROSE 50% 50ML SYRINGE IV PRN (16:10)
[2022-12-18] MEDS ORDERED: GLUCAGON INJ 1MG VIAL SC PRN (16:10)
[2022-12-18] MEDS ORDERED: GLUCOSE 4GM CHEW TABLET PO PRN (16:10)
[2022-12-18] MEDS: SUCRALFATE SUSP 1GM/10ML UD PO SCH ×2 (17:30→21:58)
[2022-12-18] MEDS: INSULIN LISPRO (NovoLOG) PER UNIT SC SCH (18:00)
[2022-12-18 18:01] LABS: RSV AMPLIFICATION NEGATIVE (NEGATIVE)
[2022-12-18] MEDS ORDERED: PANT-23 PO (20:11)
[2022-12-18] MEDS ORDERED: B-12100010 PO (20:11)
[2022-12-18] MEDS ORDERED: FERR32TA PO (20:11)
[2022-12-18] MEDS ORDERED: SUCR1TAB56 PO (20:11)
[2022-12-18] MEDS ORDERED: HOME MED LIST COMPLETE! XX SCH (20:15)
[2022-12-18 22:55] LABS: HEMATOCRIT 16.9 % (42.0-52.0); HEMOGLOBIN 5.2 g/dl (13.5-17.5)
[2022-12-19] VITALS (22 sets, daily range): BP systolic 132–163; BP diastolic 58–90
[2022-12-19] MEDS: PANTOPRAZOLE SODIUM 40 MG in D5W 50 ML IV SCH ×5 (01:58→22:16)
[2022-12-19] MEDS: INSULIN LISPRO (NovoLOG) PER UNIT SC SCH ×3 (06:00→13:00)
[2022-12-19 07:44] LABS: HEMOGLOBIN 7.9 g/dl (13.5-17.5)
[2022-12-19] MEDS: SUCRALFATE SUSP 1GM/10ML UD PO SCH ×4 (08:30→20:33)
[2022-12-19] MEDS ORDERED: PROT1TAB2 PO (09:37)
[2022-12-19] MEDS ORDERED: SUCR1ORA PO (09:37)
[2022-12-19] MEDS ORDERED: ACETAMINOPHEN TAB 650MG DOSE (2X325MG) PO PRN (17:45)
[2022-12-19] MEDS: FUROSEMIDE 40 MG TAB PO SCH (17:55)
[2022-12-19 18:20] LABS: HEMATOCRIT 28.2 % (42.0-52.0); HEMOGLOBIN 9.2 g/dl (13.5-17.5)
[2022-12-19] MEDS: FERROUS GLUCONATE 324 MG TAB PO SCH (18:36)
[2022-12-19] MEDS: LIDOCAINE 5% (LIDODERM) PATCH TOP SCH (20:32)
[2022-12-19] MEDS: METOPROLOL TART 12.5 MG PER 1/2 TAB PO SCH (20:33)
[2022-12-19] MEDS: ATORVASTATIN 20 MG TAB PO SCH (20:33)
[2022-12-19] MEDS: TERAZOSIN 1 MG CAP PO SCH (20:33)
[2022-12-20] VITALS (12 sets, daily range): BP systolic 122–154; BP diastolic 51–73
[2022-12-20] MEDS: PANTOPRAZOLE SODIUM 40 MG in D5W 50 ML IV SCH ×4 (03:25→20:12)
[2022-12-20] MEDS ORDERED: INSULIN LISPRO (NovoLOG) PER UNIT SC SCH (06:00)
[2022-12-20 06:40] LABS: HEMATOCRIT 24.4 % (42.0-52.0); HEMOGLOBIN 7.7 g/dl (13.5-17.5)
[2022-12-20 08:29] LABS: HEMATOCRIT 24.1 % (42.0-52.0); HEMOGLOBIN 7.9 g/dl (13.5-17.5)
[2022-12-20] MEDS ORDERED: D5W/0.45% SODIUM CHLORIDE 1,000 ML IV SCH (08:30)
[2022-12-20 08:35] LABS: ALBUMIN 2.2 G/DL (3.2-5.2); BILIRUBIN,TOTAL 0.7 MG/DL (0.3-1.2); CALCIUM LEVEL 7.7 MG/DL (8.3-10.6); CREATININE FOR GFR 1.38 MG/DL (0.70-1.30); GLOMERULAR FILTRATION RATE 53.5 (>42); POTASSIUM SERUM 3.7 MMOL/L (3.5-5.1); TOTAL PROTEIN 4.4 G/DL (5.7-8.2)
[2022-12-20] MEDS: CYANOCOBALAMIN 500 MCG TAB PO SCH (09:06)
[2022-12-20] MEDS: FUROSEMIDE 40 MG TAB PO SCH (09:06)
[2022-12-20] MEDS: SUCRALFATE SUSP 1GM/10ML UD PO SCH ×4 (09:06→20:10)
[2022-12-20] MEDS: VITAMIN D 1,000 INTERNATIONAL UNITS TABLET PO SCH (09:06)
[2022-12-20] MEDS: FOLIC ACID 1MG TAB PO SCH (09:06)
[2022-12-20] MEDS: METOPROLOL TART 12.5 MG PER 1/2 TAB PO SCH ×2 (09:07→20:10)
[2022-12-20] MEDS: OCTREOTIDE ACETATE 1,200 MCG in NS 238.8 ML IV SCH (09:07)
[2022-12-20 19:19] LABS: HEMATOCRIT 28.4 % (42.0-52.0); HEMOGLOBIN 9.3 g/dl (13.5-17.5)
[2022-12-20] MEDS: ATORVASTATIN 20 MG TAB PO SCH (20:11)
[2022-12-20] MEDS: TERAZOSIN 1 MG CAP PO SCH (20:11)
[2022-12-20] MEDS: LIDOCAINE 5% (LIDODERM) PATCH TOP SCH (20:26)
[2022-12-21] MEDS: PANTOPRAZOLE SODIUM 40 MG in D5W 50 ML IV SCH ×5 (00:42→19:46)
[2022-12-21 05:30] VITALS: BP 116/50
[2022-12-21 05:54] LABS: HEMATOCRIT 25.5 % (42.0-52.0); HEMOGLOBIN 8.2 g/dl (13.5-17.5)
[2022-12-21] MEDS ORDERED: GLUCAGON INJ 1MG VIAL SC PRN (07:30)
[2022-12-21] MEDS ORDERED: DEXTROSE 50% 50ML SYRINGE IV PRN (07:30)
[2022-12-21] MEDS ORDERED: GLUCOSE 4GM CHEW TABLET PO PRN (07:30)
[2022-12-21] MEDS ORDERED: D5W/0.45% SODIUM CHLORIDE 1,000 ML IV SCH (07:30)
[2022-12-21 07:49] LABS: ALBUMIN 2.3 G/DL (3.2-5.2); BILIRUBIN,TOTAL 0.8 MG/DL (0.3-1.2); CALCIUM LEVEL 7.6 MG/DL (8.3-10.6); CREATININE FOR GFR 1.49 MG/DL (0.70-1.30); GLOMERULAR FILTRATION RATE 48.9 (>42); POTASSIUM SERUM 3.7 MMOL/L (3.5-5.1); TOTAL PROTEIN 4.5 G/DL (5.7-8.2)
[2022-12-21] MEDS: CYANOCOBALAMIN 500 MCG TAB PO SCH (08:53)
[2022-12-21] MEDS: SUCRALFATE SUSP 1GM/10ML UD PO SCH ×4 (08:53→21:44)
[2022-12-21] MEDS: FOLIC ACID 1MG TAB PO SCH (08:53)
[2022-12-21] MEDS: FERROUS GLUCONATE 324 MG TAB PO SCH (08:53)
[2022-12-21] MEDS: VITAMIN D 1,000 INTERNATIONAL UNITS TABLET PO SCH (08:53)
[2022-12-21] MEDS: METOPROLOL TART 12.5 MG PER 1/2 TAB PO SCH ×2 (08:54→21:00)
[2022-12-21] MEDS: FUROSEMIDE 40 MG TAB PO SCH (08:54)
[2022-12-21] MEDS: OCTREOTIDE ACETATE 1,200 MCG in NS 238.8 ML IV SCH (08:55)
[2022-12-21] MEDS ORDERED: LIDOCAINE 1% MDV 20ML VIAL As Ordered ONE (15:25)
[2022-12-21 16:00] VITALS: BP 139/65
[2022-12-21] MEDS ORDERED: SODIUM CHLORIDE 0.9% INJ 10 ML SYR IV PRN (17:35)
[2022-12-21] MEDS: SODIUM CHLORIDE 0.9% INJ 10 ML SYR IV SCH (18:00)
[2022-12-21 18:30] LABS: HEMATOCRIT 26.8 % (42.0-52.0); HEMOGLOBIN 8.7 g/dl (13.5-17.5)
[2022-12-21] MEDS ORDERED: SODIUM CHLORIDE 0.9% INJ 10 ML SYR IV SCH (21:00)
[2022-12-21] MEDS: TERAZOSIN 1 MG CAP PO SCH (21:43)
[2022-12-21] MEDS: LIDOCAINE 5% (LIDODERM) PATCH TOP SCH (21:44)
[2022-12-21] MEDS: ATORVASTATIN 20 MG TAB PO SCH (21:44)
[2022-12-22] MEDS: PANTOPRAZOLE SODIUM 40 MG in D5W 50 ML IV SCH ×5 (00:31→20:15)
[2022-12-22] MEDS: SODIUM CHLORIDE 0.9% INJ 10 ML SYR IV SCH ×2 (05:12→17:15)
[2022-12-22 06:00] VITALS: BP 129/62
[2022-12-22 06:28] LABS: HEMATOCRIT 25.5 % (42.0-52.0); HEMOGLOBIN 8.3 g/dl (13.5-17.5)
[2022-12-22 06:50] LABS: CALCIUM LEVEL 7.5 MG/DL (8.3-10.6); CREATININE FOR GFR 1.41 MG/DL (0.70-1.30); GLOMERULAR FILTRATION RATE 52.2 (>42); POTASSIUM SERUM 3.5 MMOL/L (3.5-5.1)
[2022-12-22] MEDS: FOLIC ACID 1MG TAB PO SCH (08:42)
[2022-12-22] MEDS: CYANOCOBALAMIN 500 MCG TAB PO SCH (08:42)
[2022-12-22] MEDS: VITAMIN D 1,000 INTERNATIONAL UNITS TABLET PO SCH (08:43)
[2022-12-22] MEDS: FUROSEMIDE 40 MG TAB PO SCH (08:43)
[2022-12-22] MEDS: SUCRALFATE SUSP 1GM/10ML UD PO SCH ×4 (08:44→20:16)
[2022-12-22] MEDS: METOPROLOL TART 12.5 MG PER 1/2 TAB PO SCH ×2 (08:44→20:15)
[2022-12-22] MEDS: OCTREOTIDE ACETATE 1,200 MCG in NS 238.8 ML IV SCH (08:45)
[2022-12-22 14:00] VITALS: BP 121/55
[2022-12-22] MEDS ORDERED: BISACODYL 5MG TAB PO ONE (16:00)
[2022-12-22] MEDS ORDERED: GOLYTELY SOLN 4000 ML BTL PO ONE (18:00)
[2022-12-22 19:19] LABS: HEMATOCRIT 29.2 % (42.0-52.0); HEMOGLOBIN 9.2 g/dl (13.5-17.5)
[2022-12-22 20:00] VITALS: BP 129/60
[2022-12-22] MEDS: ATORVASTATIN 20 MG TAB PO SCH (20:15)
[2022-12-22] MEDS: TERAZOSIN 1 MG CAP PO SCH (20:17)
[2022-12-22] MEDS: LIDOCAINE 5% (LIDODERM) PATCH TOP SCH (20:18)
[2022-12-23] MEDS: PANTOPRAZOLE SODIUM 40 MG in D5W 50 ML IV SCH ×4 (01:14→15:55)
[2022-12-23] MEDS ORDERED: GOLYTELY SOLN 4000 ML BTL PO ONE (05:00)
[2022-12-23] MEDS: SODIUM CHLORIDE 0.9% INJ 10 ML SYR IV SCH ×2 (05:09→18:00)
[2022-12-23 06:00] VITALS: BP 128/53
[2022-12-23 06:25] LABS: HEMATOCRIT 25.5 % (42.0-52.0); HEMOGLOBIN 8.2 g/dl (13.5-17.5)
[2022-12-23 06:49] LABS: CALCIUM LEVEL 7.8 MG/DL (8.3-10.6); CREATININE FOR GFR 1.35 MG/DL (0.70-1.30); GLOMERULAR FILTRATION RATE 54.8 (>42); POTASSIUM SERUM 3.5 MMOL/L (3.5-5.1)
[2022-12-23] MEDS: SUCRALFATE SUSP 1GM/10ML UD PO SCH ×2 (07:30→12:00)
[2022-12-23] MEDS ORDERED: MAGNESIUM CITRATE 300ML BTL PO ONE (12:35)
[2022-12-23] MEDS: FERROUS GLUCONATE 324 MG TAB PO SCH (12:54)
[2022-12-23] MEDS: METOPROLOL TART 12.5 MG PER 1/2 TAB PO SCH ×2 (12:54→21:24)
[2022-12-23] MEDS: CYANOCOBALAMIN 500 MCG TAB PO SCH (12:55)
[2022-12-23] MEDS: FUROSEMIDE 40 MG TAB PO SCH (12:55)
[2022-12-23] MEDS: VITAMIN D 1,000 INTERNATIONAL UNITS TABLET PO SCH (12:55)
[2022-12-23] MEDS: FOLIC ACID 1MG TAB PO SCH (12:55)
[2022-12-23] MEDS: SODIUM CHLORIDE 0.9% INJ 10 ML SYR IV PRN ×3 (12:57→21:26)
[2022-12-23 14:00] VITALS: BP 125/53
[2022-12-23] MEDS ORDERED: propofoL 200 MG/20 ML VIAL As Ordered ONE (16:17)
[2022-12-23] MEDS ORDERED: LIDOCAINE 2% 100MG/5ML SDV (FOR ANES.) As Ordered ONE (16:17)
[2022-12-23] MEDS ORDERED: fentaNYL 100 MCG/2 ML INJECTION As Ordered ONE (16:17)
[2022-12-23 18:15] LABS: HEMATOCRIT 25.8 % (42.0-52.0); HEMOGLOBIN 8.2 g/dl (13.5-17.5)
[2022-12-23] MEDS: TERAZOSIN 1 MG CAP PO SCH (21:23)
[2022-12-23] MEDS: ATORVASTATIN 20 MG TAB PO SCH (21:24)
[2022-12-23] MEDS: LIDOCAINE 5% (LIDODERM) PATCH TOP SCH (21:24)
[2022-12-23 22:00] VITALS: BP 122/61
[2022-12-24] MEDS ORDERED: CETIRIZINE (ZyrTEC) 10 MG TAB PO ONE (03:00)
[2022-12-24 05:16] LABS: HEMATOCRIT 23.9 % (42.0-52.0); HEMOGLOBIN 7.7 g/dl (13.5-17.5)
[2022-12-24 05:39] LABS: CALCIUM LEVEL 7.4 MG/DL (8.3-10.6); CREATININE FOR GFR 1.36 MG/DL (0.70-1.30); GLOMERULAR FILTRATION RATE 54.4 (>42); POTASSIUM SERUM 3.4 MMOL/L (3.5-5.1)
[2022-12-24] MEDS: SODIUM CHLORIDE 0.9% INJ 10 ML SYR IV SCH (05:51)
[2022-12-24] MEDS: SODIUM CHLORIDE 0.9% INJ 10 ML SYR IV PRN (05:52)
[2022-12-24 06:00] VITALS: BP 134/62
[2022-12-24] MEDS ORDERED: PANTOPRAZOLE 40MG TAB (PROTONIX) PO SCH (09:00)
[2022-12-24] MEDS: FUROSEMIDE 40 MG TAB PO SCH (09:03)
[2022-12-24] MEDS: VITAMIN D 1,000 INTERNATIONAL UNITS TABLET PO SCH (09:03)
[2022-12-24] MEDS: FOLIC ACID 1MG TAB PO SCH (09:03)
[2022-12-24 09:04] VITALS: BP 146/67
[2022-12-24] MEDS: CYANOCOBALAMIN 500 MCG TAB PO SCH (09:04)
[2022-12-24] MEDS: METOPROLOL TART 12.5 MG PER 1/2 TAB PO SCH (09:04)
[2022-12-24 12:01] LABS: HEMATOCRIT 24.9 % (42.0-52.0); HEMOGLOBIN 7.9 g/dl (13.5-17.5)
[2022-12-24 14:00] VITALS: BP 127/57
[2022-12-24] MEDS ORDERED: CETIRIZINE (ZyrTEC) 10 MG TAB PO PRN (21:00)
== END 2022-12-24 16:00 | disposition home health service (06) | DRG 812 ==
LOC: M ED 13:21 → EDBD 13:21 → M MSPAV 15:33 → M ED INP 15:33 → M PCU 21:38 → M MSPAV 12-19 23:42
PROVIDERS: ADMIT General Practice; ATTEND Internal Medicine
PROC: 30233N1 Transfusion of Nonautologous Red Blood Cells into Peripheral Vein, Percutaneous Approach (ICD-10-PCS; 2022-12-18)
PROC: 02HV33Z Insertion of Infusion Device into Superior Vena Cava, Percutaneous Approach (ICD-10-PCS; 2022-12-21)
PROC: 0DJD8ZZ Inspection of Lower Intestinal Tract, Via Natural or Artificial Opening Endoscopic (ICD-10-PCS; 2022-12-23)
PROC: 0DJ08ZZ Inspection of Upper Intestinal Tract, Via Natural or Artificial Opening Endoscopic (ICD-10-PCS; principal; 2022-12-23 16:30)
DX: D62 Acute posthemorrhagic anemia (principal); K92.2 Gastrointestinal hemorrhage, unspecified; I50.32 Chronic diastolic (congestive) heart failure; I13.0 Hypertensive heart and chronic kidney disease with heart failure and stage 1 through stage 4 chronic kidney disease, or unspecified chronic kidney disease; N17.9 Acute kidney failure, unspecified; N18.30 Chronic kidney disease, stage 3 unspecified; K21.00 Gastro-esophageal reflux disease with esophagitis, without bleeding; I48.91 Unspecified atrial fibrillation; J84.112 Idiopathic pulmonary fibrosis; E11.22 Type 2 diabetes mellitus with diabetic chronic kidney disease; I27.20 Pulmonary hypertension, unspecified; K64.9 Unspecified hemorrhoids; I35.0 Nonrheumatic aortic (valve) stenosis; E53.8 Deficiency of other specified B group vitamins; K57.30 Diverticulosis of large intestine without perforation or abscess without bleeding; E55.9 Vitamin D deficiency, unspecified; D47.2 Monoclonal gammopathy; K31.89 Other diseases of stomach and duodenum; K21.9 Gastro-esophageal reflux disease without esophagitis; N40.0 Benign prostatic hyperplasia without lower urinary tract symptoms; D50.9 Iron deficiency anemia, unspecified; K57.90 Diverticulosis of intestine, part unspecified, without perforation or abscess without bleeding; Z79.899 Other long term (current) drug therapy; Z95.2 Presence of prosthetic heart valve

== ENCOUNTER → 2023-01-20 | Outpatient (REF) | payer OTHER ==
[~2023-01-20] MED LIST changes: +B-12100010 PO; +PANT-23 PO; +PROT1TAB2 PO; +SUCR1ORA PO
[2023-01-20 15:53] LABS: BASO # 0.1 10^3/uL (0.0-0.2); BASO % 0.8 % (0.0-1.0); EOS # 0.2 10^3/uL (0.0-0.5); EOS % 1.6 % (0.0-3.0); HEMATOCRIT 29.5 % (42.0-52.0); HEMOGLOBIN 8.9 g/dl (13.5-17.5); LYMPH # 0.6 10^3/uL (1.5-5.0); LYMPH % 6.1 % (24.0-44.0); MEAN CORPUSCULAR HEMOGLOBIN 29.3 pg (27.0-33.0); MEAN CORPUSCULAR HGB CONC 30.2 g/dl (32.0-36.5); MONO # 0.6 10^3/uL (0.0-0.8); MONO % 5.9 % (2.0-8.0); NEUTROPHILS # 7.9 10^3/uL (1.5-8.5); NEUTROPHILS % 85.3 % (36.0-66.0); PLATELET COUNT, AUTOMATED 300 10^3/uL (150-450); RED BLOOD COUNT 3.04 10^6/uL (4.30-6.10); WHITE BLOOD COUNT 9.3 10^3/uL (4.0-10.0)
[2023-01-20 16:21] LABS: ALBUMIN 2.9 G/DL (3.2-5.2); BILIRUBIN,TOTAL 0.4 MG/DL (0.3-1.2); CALCIUM LEVEL 7.8 MG/DL (8.3-10.6); CREATININE FOR GFR 1.64 MG/DL (0.70-1.30); GLOMERULAR FILTRATION RATE 43.8 (>42); POTASSIUM SERUM 3.6 MMOL/L (3.5-5.1); TOTAL PROTEIN 6.4 G/DL (5.7-8.2)
== END ==
LOC: M SHH 15:14
PROVIDERS: ATTEND Physician Assistant Medical
DX: D64.9 Anemia, unspecified (principal)

== ENCOUNTER 2023-02-02 17:26 | Inpatient (IN) | payer MEDICARE, OTHER ==
[~2023-02-02] VITALS: Ht 180.3 cm; Wt 87.3 kg
[2023-02-02 20:34] LABS: INR 1.17; PROTHROMBIN TIME 15.1 SECONDS (12.5-14.5)
[2023-02-02 20:40] LABS: BASO # 0.1 10^3/uL (0.0-0.2); BASO % 0.7 % (0.0-1.0); EOS # 0.2 10^3/uL (0.0-0.5); HEMATOCRIT 32.6 % (42.0-52.0); HEMOGLOBIN 9.9 g/dl (13.5-17.5); LYMPH # 0.7 10^3/uL (1.5-5.0); LYMPH % 10.2 % (24.0-44.0); MEAN CORPUSCULAR HEMOGLOBIN 28.9 pg (27.0-33.0); MEAN CORPUSCULAR HGB CONC 30.4 g/dl (32.0-36.5); MEAN CORPUSCULAR VOLUME 95.3 fl (80.0-96.0); MONO # 0.5 10^3/uL (0.0-0.8); MONO % 7.8 % (2.0-8.0); NEUTROPHILS # 5.4 10^3/uL (1.5-8.5); NEUTROPHILS % 78.2 % (36.0-66.0); PLATELET COUNT, AUTOMATED 298 10^3/uL (150-450); RED BLOOD COUNT 3.42 10^6/uL (4.30-6.10); WHITE BLOOD COUNT 6.9 10^3/uL (4.0-10.0)
[2023-02-02 20:41] LABS: CALCIUM LEVEL 8.5 MG/DL (8.3-10.6); CREATININE FOR GFR 2.81 MG/DL (0.70-1.30); GLOMERULAR FILTRATION RATE 23.5 (>42); POTASSIUM SERUM 4.3 MMOL/L (3.5-5.1)
[2023-02-03] MEDS ORDERED: CARA1TAB6 PO (01:34)
[2023-02-03 01:35] VITALS: BP 153/62; TEMP 98.1; O2SAT 95
[2023-02-03] MEDS ORDERED: DOCU100C16 PO (01:36)
[2023-02-03] MEDS ORDERED: POTA-150 PO (01:36)
[2023-02-03] MEDS ORDERED: PANT40TA29 PO (01:36)
[2023-02-03] MEDS ORDERED: LISI20TA33 PO (01:36)
[2023-02-03] MEDS ORDERED: HOME MED LIST COMPLETE! XX SCH (01:40)
[2023-02-03] MEDS ORDERED: NS 1,000 ML IV SCH (01:50)
[2023-02-03] MEDS ORDERED: LIDOCAINE 5% (LIDODERM) PATCH TOP PRN (02:05)
[2023-02-03] MEDS ORDERED: PANTOPRAZOLE 40MG TAB (PROTONIX) PO PRN (02:05)
[2023-02-03] MEDS: ATORVASTATIN 20 MG TAB PO SCH ×2 (02:31→20:56)
[2023-02-03] MEDS: DOCUSATE SODIUM 100MG CAPSULE PO SCH ×2 (02:32→10:14)
[2023-02-03] MEDS: METOPROLOL TART 12.5 MG PER 1/2 TAB PO SCH ×3 (02:35→20:57)
[2023-02-03 03:21] LABS: CREATININE,RANDOM URINE 58.6 MG/DL
[2023-02-03 05:37] VITALS: BP 138/60; TEMP 98.1; O2SAT 96
[2023-02-03] MEDS: TERAZOSIN 1 MG CAP PO SCH ×2 (05:42→20:56)
[2023-02-03 06:23] LABS: HEMOGLOBIN 9.5 g/dl (13.5-17.5)
[2023-02-03 06:38] LABS: ALBUMIN 3.2 G/DL (3.2-5.2); ALKALINE PHOSPHATASE 87 U/L (46-116); ALT/SGPT < 9 U/L (7.0-40); AST/SGOT 10 U/L (<34); BILIRUBIN,TOTAL 0.4 MG/DL (0.3-1.2); BLOOD UREA NITROGEN 72 MG/DL (9-23); CALCIUM LEVEL 8.3 MG/DL (8.3-10.6); CARBON DIOXIDE LEVEL 19 MMOL/L (20-31); CHLORIDE LEVEL 115 MMOL/L (98-107); CREATININE FOR GFR 2.51 MG/DL (0.70-1.30); GLOMERULAR FILTRATION RATE 26.8 (>42); GLUCOSE, FASTING 89 MG/DL (74-106); PHOSPHORUS LEVEL 3.4 MG/DL (2.4-5.1); POTASSIUM SERUM 3.9 MMOL/L (3.5-5.1); SODIUM LEVEL 144 MMOL/L (136-145); TOTAL PROTEIN 6.7 G/DL (5.7-8.2)
[2023-02-03] MEDS: SUCRALFATE 1 GM TAB PO SCH ×4 (10:14→20:56)
[2023-02-03] MEDS: CYANOCOBALAMIN 500 MCG TAB PO SCH (10:15)
[2023-02-03] MEDS: FOLIC ACID 1MG TAB PO SCH (10:15)
[2023-02-03] MEDS: FERROUS GLUCONATE 324 MG TAB PO SCH ×3 (10:15→20:56)
[2023-02-03] MEDS ORDERED: NS 500 ML IV ONE (12:30)
[2023-02-03 14:00] VITALS: BP 136/60; TEMP 97.3; O2SAT 94
[2023-02-03 21:30] VITALS: TEMP 97.7; O2SAT 96
[2023-02-04 06:10] VITALS: BP 136/63; TEMP 97.5; O2SAT 96
[2023-02-04 07:26] LABS: BASO # 0.1 10^3/uL (0.0-0.2); EOS # 0.3 10^3/uL (0.0-0.5); EOS % 5.6 % (0.0-3.0); HEMATOCRIT 28.4 % (42.0-52.0); HEMOGLOBIN 8.9 g/dl (13.5-17.5); LYMPH # 0.7 10^3/uL (1.5-5.0); LYMPH % 10.9 % (24.0-44.0); MEAN CORPUSCULAR HEMOGLOBIN 29.5 pg (27.0-33.0); MEAN CORPUSCULAR HGB CONC 31.3 g/dl (32.0-36.5); MONO # 0.5 10^3/uL (0.0-0.8); MONO % 8.2 % (2.0-8.0); NEUTROPHILS # 4.5 10^3/uL (1.5-8.5); NEUTROPHILS % 74.1 % (36.0-66.0); PLATELET COUNT, AUTOMATED 224 10^3/uL (150-450); RED BLOOD COUNT 3.02 10^6/uL (4.30-6.10); WHITE BLOOD COUNT 6.1 10^3/uL (4.0-10.0)
[2023-02-04 07:55] LABS: CALCIUM LEVEL 8.8 MG/DL (8.3-10.6); CREATININE FOR GFR 1.87 MG/DL (0.70-1.30); GLOMERULAR FILTRATION RATE 37.7 (>42); POTASSIUM SERUM 4.1 MMOL/L (3.5-5.1)
[2023-02-04] MEDS: FERROUS GLUCONATE 324 MG TAB PO SCH (08:08)
[2023-02-04] MEDS: FOLIC ACID 1MG TAB PO SCH (08:08)
[2023-02-04] MEDS: SUCRALFATE 1 GM TAB PO SCH ×2 (08:08→12:09)
[2023-02-04] MEDS: CYANOCOBALAMIN 500 MCG TAB PO SCH (08:08)
[2023-02-04 08:09] VITALS: BP 134/66
[2023-02-04] MEDS: METOPROLOL TART 12.5 MG PER 1/2 TAB PO SCH (08:09)
== END 2023-02-04 12:20 | disposition home or self-care (01) | DRG 683 ==
LOC: M ED 17:26 → M ED INP 23:04 → M MSPAV 02-03 01:32
PROVIDERS: ADMIT Internal Medicine; ATTEND Internal Medicine Nephrology
DX: N17.9 Acute kidney failure, unspecified (principal); I50.32 Chronic diastolic (congestive) heart failure; I13.0 Hypertensive heart and chronic kidney disease with heart failure and stage 1 through stage 4 chronic kidney disease, or unspecified chronic kidney disease; K92.2 Gastrointestinal hemorrhage, unspecified; J84.10 Pulmonary fibrosis, unspecified; R19.7 Diarrhea, unspecified; I27.29 Other secondary pulmonary hypertension; E78.5 Hyperlipidemia, unspecified; E11.22 Type 2 diabetes mellitus with diabetic chronic kidney disease; K64.9 Unspecified hemorrhoids; E53.8 Deficiency of other specified B group vitamins; K57.90 Diverticulosis of intestine, part unspecified, without perforation or abscess without bleeding; I48.91 Unspecified atrial fibrillation; D50.0 Iron deficiency anemia secondary to blood loss (chronic); N40.0 Benign prostatic hyperplasia without lower urinary tract symptoms; K26.7 Chronic duodenal ulcer without hemorrhage or perforation; K21.00 Gastro-esophageal reflux disease with esophagitis, without bleeding; N18.30 Chronic kidney disease, stage 3 unspecified; Z79.899 Other long term (current) drug therapy; Z95.3 Presence of xenogenic heart valve

== ENCOUNTER 2023-03-23 11:40 | Emergency (ER) | payer MEDICARE, OTHER ==
[~2023-03-23] VITALS: Ht 180.3 cm; Wt 90.0 kg
[~2023-03-23 11:40] MED LIST changes: +CARA1TAB6 PO; +DOCU100C16 PO; +LISI20TA33 PO; +POTA-150 PO
[2023-03-23 13:11] LABS: VENOUS BASE EXCESS -5.2 (-2.0-2.0); VENOUS HCO3 20.1 MMOL/L (23.0-27.0); VENOUS O2 SATURATION 77.9 % (60.0-80.0); VENOUS PARTIAL PRESSURE CO2 38.4 mmHg (38.0-50.0); VENOUS PH 7.337 UNITS (7.330-7.430); VENOUS STANDARD HCO3 19.8 MMOL/L; VENOUS TOTAL CO2 21.3 MMOL/L (24.0-28.0)
[2023-03-23 13:20] LABS: BASO % 0.7 % (0.0-1.0); EOS # 0.1 10^3/uL (0.0-0.5); EOS % 2.2 % (0.0-3.0); HEMATOCRIT 27.2 % (42.0-52.0); HEMOGLOBIN 8.3 g/dl (13.5-17.5); LYMPH # 0.4 10^3/uL (1.5-5.0); MEAN CORPUSCULAR HEMOGLOBIN 28.2 pg (27.0-33.0); MEAN CORPUSCULAR HGB CONC 30.5 g/dl (32.0-36.5); MEAN CORPUSCULAR VOLUME 92.5 fl (80.0-96.0); MONO # 0.5 10^3/uL (0.0-0.8); MONO % 8.8 % (2.0-8.0); NEUTROPHILS # 4.9 10^3/uL (1.5-8.5); PLATELET COUNT, AUTOMATED 158 10^3/uL (150-450); RED BLOOD COUNT 2.94 10^6/uL (4.30-6.10)
[2023-03-23 13:36] LABS: INR 1.31; PROTHROMBIN TIME 15.9 SECONDS (12.5-14.5)
[2023-03-23 13:37] LABS: PARTIAL THROMBOPLASTIN TIME 35.2 SECONDS (24.8-34.2)
[2023-03-23 13:44] LABS: ETHYL ALCOHOL (ETHANOL) < 0.003 % (0.000-0.010)
[2023-03-23 13:46] LABS: BLOOD UREA NITROGEN 50 MG/DL (9-23); CALCIUM LEVEL 8.7 MG/DL (8.3-10.6); CARBON DIOXIDE LEVEL 22 MMOL/L (20-31); CHLORIDE LEVEL 108 MMOL/L (98-107); CPK CREATINE PHOSPHOKINASE 85 U/L (46-171); CREATININE FOR GFR 2.11 MG/DL (0.70-1.30); GLOMERULAR FILTRATION RATE 32.8 (>42); GLUCOSE, FASTING 139 MG/DL (74-106); MAGNESIUM LEVEL 1.8 MG/DL (1.8-2.4); MB/CK RELATIVE INDEX 1.17 (< OR =4); POTASSIUM SERUM 4.2 MMOL/L (3.5-5.1); SODIUM LEVEL 140 MMOL/L (136-145)
[2023-03-23 13:48] LABS: THYROID STIMULATING HORMONE 6.884 uIU/ML (0.55-4.78)
[2023-03-23 13:49] LABS: FREE T4 1.15 NG/DL (0.89-1.76)
[2023-03-23] MEDS ORDERED: BOOSTRIX VACCINE (TETANUS/DIPHTH/ACEL. PERTUSSIS) 0.5ML SYR IM.IMMUN ONE (15:15)
[2023-03-23] MEDS ORDERED: NS 1,000 ML IV ONE (15:15)
[2023-03-23 15:38] LABS: CK-MB VALUE MASS 1.3 NG/ML (<3.6)
[2023-03-23 15:45] LABS: MB/CK RELATIVE INDEX 0.78 (< OR =4)
[2023-03-23] MEDS ORDERED: ACETAMINOPHEN *IV* 1,000 MG in IV 1 EA IV ONE (16:10)
[2023-03-23 17:03] VITALS: BP 178/82; TEMP 96.5; O2SAT 96
[2023-03-23] MEDS ORDERED: NESI12.5 PO ×2 (18:02→22:38)
[2023-03-23] MEDS ORDERED: JARD1TAB3 PO ×2 (18:02→22:38)
[2023-03-23] MEDS ORDERED: LISI10TA22 PO (18:02)
[2023-03-23] MEDS ORDERED: POTA-298 (18:02)
[2023-03-23] MEDS ORDERED: OFEV1CAP2 PO (18:02)
[2023-03-23] MEDS ORDERED: FURO40TA2 PO ×2 (18:02→22:38)
[2023-03-23] MEDS ORDERED: LISI20TA33 PO (22:38)
== END 2023-03-23 17:07 | disposition home or self-care (01) ==
LOC: M ED 11:40 → EDBD 11:40 → M ED 17:07
DX: R55 Syncope and collapse (principal); S01.90XA Unspecified open wound of unspecified part of head, initial encounter; W19.XXXA Unspecified fall, initial encounter; Y92.89 Other specified places as the place of occurrence of the external cause; Y93.89 Activity, other specified; Y99.8 Other external cause status; I11.9 Hypertensive heart disease without heart failure; I48.91 Unspecified atrial fibrillation; I50.20 Unspecified systolic (congestive) heart failure; E78.5 Hyperlipidemia, unspecified; N40.0 Benign prostatic hyperplasia without lower urinary tract symptoms; D50.9 Iron deficiency anemia, unspecified; J84.10 Pulmonary fibrosis, unspecified; I27.81 Cor pulmonale (chronic)

== ENCOUNTER 2023-03-23 17:21 | Inpatient (IN) | payer MEDICARE, OTHER ==
[~2023-03-23] VITALS: Ht 180.3 cm; Wt 89.0 kg
[2023-03-23 17:30] VITALS: O2SAT 93
[2023-03-23 17:35] LABS: ABG BASE EXCESS -10.5 (-2.0-2.0); ABG HCO3 14.5 MMOL/L (22.0-26.0); ABG O2 SATURATION 93.7 % (95.0-99.0); ABG PARTIAL PRESSURE CO2 29.3 mmHg (35.0-45.0); ABG PARTIAL PRESSURE O2 74.2 mmHg (75.0-100.0); ABG TOTAL CO2 15.4 MMOL/L (23.0-31.0); ABG pH (ARTERIAL) 7.313 UNITS (7.350-7.450)
[2023-03-23] MEDS ORDERED: NS 500 ML IV ONE (17:35)
[2023-03-23 17:41] LABS: BASO # 0.1 10^3/uL (0.0-0.2); BASO % 0.5 % (0.0-1.0); EOS % 0.4 % (0.0-3.0); HEMATOCRIT 29.4 % (42.0-52.0); HEMOGLOBIN 8.8 g/dl (13.5-17.5); LYMPH # 1.2 10^3/uL (1.5-5.0); LYMPH % 13.2 % (24.0-44.0); MEAN CORPUSCULAR HGB CONC 29.9 g/dl (32.0-36.5); MEAN CORPUSCULAR VOLUME 93.6 fl (80.0-96.0); MONO # 0.7 10^3/uL (0.0-0.8); NEUTROPHILS # 7.1 10^3/uL (1.5-8.5); NEUTROPHILS % 76.9 % (36.0-66.0); PLATELET COUNT, AUTOMATED 186 10^3/uL (150-450); RED BLOOD COUNT 3.14 10^6/uL (4.30-6.10); WHITE BLOOD COUNT 9.2 10^3/uL (4.0-10.0)
[2023-03-23] MEDS ORDERED: ONDANSETRON 4MG 2ML VIAL IV ONE (17:45)
[2023-03-23] MEDS ORDERED: ONDANSETRON 4MG 2ML VIAL As Ordered ONE (17:45)
[2023-03-23 17:56] LABS: INR 1.34; PROTHROMBIN TIME 16.2 SECONDS (12.5-14.5)
[2023-03-23 17:57] LABS: PARTIAL THROMBOPLASTIN TIME 35.5 SECONDS (24.8-34.2)
[2023-03-23] MEDS ORDERED: NESI12.5 PO ×2 (18:02→22:38)
[2023-03-23] MEDS ORDERED: POTA-298 (18:02)
[2023-03-23] MEDS ORDERED: FURO40TA2 PO ×2 (18:02→22:38)
[2023-03-23] MEDS ORDERED: OFEV1CAP2 PO (18:02)
[2023-03-23] MEDS ORDERED: JARD1TAB3 PO ×2 (18:02→22:38)
[2023-03-23] MEDS ORDERED: LISI10TA22 PO (18:02)
[2023-03-23 18:10] LABS: CK-MB VALUE MASS 2.5 NG/ML (<3.6)
[2023-03-23 18:12] LABS: MB/CK RELATIVE INDEX 0.87 (< OR =4)
[2023-03-23 18:13] LABS: CALCIUM LEVEL 8.7 MG/DL (8.3-10.6); CREATININE FOR GFR 1.96 MG/DL (0.70-1.30); GLOMERULAR FILTRATION RATE 35.7 (>42); MAGNESIUM LEVEL 1.8 MG/DL (1.8-2.4); POTASSIUM SERUM 3.7 MMOL/L (3.5-5.1)
[2023-03-23 18:14] LABS: FREE T4 1.22 NG/DL (0.89-1.76)
[2023-03-23 18:15] LABS: THYROID STIMULATING HORMONE 5.074 uIU/ML (0.55-4.78)
[2023-03-23 20:05] LABS: CK-MB VALUE MASS 2.6 NG/ML (<3.6)
[2023-03-23 20:06] LABS: MB/CK RELATIVE INDEX 0.87 (< OR =4)
[2023-03-23] MEDS ORDERED: LISI20TA33 PO (22:38)
[2023-03-23] MEDS ORDERED: HOME MED LIST COMPLETE! XX SCH (22:40)
[2023-03-23 23:26] LABS: AMPHETAMINES LEVEL URINE NEGATIVE (NEGATIVE); BARBITURATES URINE NEGATIVE (NEGATIVE); BENZODIAZEPINES URINE NEGATIVE (NEGATIVE); CANNABINOIDS URINE NEGATIVE (NEGATIVE); COCAINE METABOLITE URINE NEGATIVE (NEGATIVE); METHADONE URINE NEGATIVE (NEGATIVE); OPIATES URINE NEGATIVE (NEGATIVE); PHENCYCLIDINE URINE NEGATIVE (NEGATIVE)
[2023-03-23 23:29] LABS: CK-MB VALUE MASS 2.4 NG/ML (<3.6)
[2023-03-23 23:30] LABS: MB/CK RELATIVE INDEX 0.68 (< OR =4)
[2023-03-23] MEDS ORDERED: PANTOPRAZOLE 40MG TAB (PROTONIX) PO PRN (23:45)
[2023-03-24] VITALS (13 sets, daily range): BP systolic 115–157; BP diastolic 58–75; TEMP 97.6–98.9; O2SAT 87–99
[2023-03-24] MEDS ORDERED: NS 1,000 ML IV SCH (01:05)
[2023-03-24] MEDS: SUCRALFATE 1 GM TAB PO SCH ×5 (01:43→20:51)
[2023-03-24] MEDS: TERAZOSIN 1 MG CAP PO SCH ×2 (01:43→20:52)
[2023-03-24] MEDS: ATORVASTATIN 20 MG TAB PO SCH ×2 (01:44→20:51)
[2023-03-24 04:12] LABS: BASO % 0.6 % (0.0-1.0); EOS % 0.8 % (0.0-3.0); HEMATOCRIT 25.2 % (42.0-52.0); HEMOGLOBIN 7.5 g/dl (13.5-17.5); LYMPH # 0.4 10^3/uL (1.5-5.0); LYMPH % 7.2 % (24.0-44.0); MEAN CORPUSCULAR HEMOGLOBIN 27.4 pg (27.0-33.0); MEAN CORPUSCULAR HGB CONC 29.8 g/dl (32.0-36.5); MONO # 0.5 10^3/uL (0.0-0.8); MONO % 9.8 % (2.0-8.0); NEUTROPHILS # 4.3 10^3/uL (1.5-8.5); NEUTROPHILS % 81.4 % (36.0-66.0); PLATELET COUNT, AUTOMATED 141 10^3/uL (150-450); RED BLOOD COUNT 2.74 10^6/uL (4.30-6.10); WHITE BLOOD COUNT 5.3 10^3/uL (4.0-10.0)
[2023-03-24 04:36] LABS: ALBUMIN 2.9 G/DL (3.2-5.2); CALCIUM LEVEL 8.3 MG/DL (8.3-10.6); CREATININE FOR GFR 1.76 MG/DL (0.70-1.30); GLOMERULAR FILTRATION RATE 40.4 (>42); MAGNESIUM LEVEL 1.8 MG/DL (1.8-2.4); PHOSPHORUS LEVEL 4.2 MG/DL (2.4-5.1); POTASSIUM SERUM 4.2 MMOL/L (3.5-5.1)
[2023-03-24] MEDS: DOCUSATE SODIUM 100MG CAPSULE PO SCH ×2 (08:26→20:51)
[2023-03-24] MEDS: METOPROLOL TART 12.5 MG PER 1/2 TAB PO SCH ×2 (08:27→20:51)
[2023-03-24] MEDS: FOLIC ACID 1MG TAB PO SCH (08:27)
[2023-03-24] MEDS: FERROUS GLUCONATE 324 MG TAB PO SCH ×2 (08:27→20:51)
[2023-03-24] MEDS: VITAMIN D 1,000 INTERNATIONAL UNITS TABLET PO SCH (08:27)
[2023-03-24] MEDS: PANTOPRAZOLE 40MG TAB (PROTONIX) PO SCH ×2 (14:15→20:51)
[2023-03-25] VITALS (8 sets, daily range): BP systolic 114–149; BP diastolic 56–66; TEMP 97.5–99.5; O2SAT 90–99
[2023-03-25 04:33] LABS: BASO # 0.1 10^3/uL (0.0-0.2); BASO % 0.8 % (0.0-1.0); EOS # 0.1 10^3/uL (0.0-0.5); EOS % 2.2 % (0.0-3.0); HEMATOCRIT 26.9 % (42.0-52.0); HEMOGLOBIN 8.4 g/dl (13.5-17.5); LYMPH # 0.4 10^3/uL (1.5-5.0); MEAN CORPUSCULAR HEMOGLOBIN 28.7 pg (27.0-33.0); MEAN CORPUSCULAR HGB CONC 31.2 g/dl (32.0-36.5); MEAN CORPUSCULAR VOLUME 91.8 fl (80.0-96.0); MONO # 0.7 10^3/uL (0.0-0.8); MONO % 11.8 % (2.0-8.0); NEUTROPHILS # 4.7 10^3/uL (1.5-8.5); NEUTROPHILS % 77.9 % (36.0-66.0); PLATELET COUNT, AUTOMATED 138 10^3/uL (150-450); RED BLOOD COUNT 2.93 10^6/uL (4.30-6.10)
[2023-03-25 04:40] LABS: CALCIUM LEVEL 8.3 MG/DL (8.3-10.6); CREATININE FOR GFR 1.68 MG/DL (0.70-1.30); GLOMERULAR FILTRATION RATE 42.6 (>42); POTASSIUM SERUM 3.9 MMOL/L (3.5-5.1)
[2023-03-25] MEDS: ACETAMINOPHEN TAB 650MG DOSE (2X325MG) PO PRN ×2 (05:57→22:41)
[2023-03-25 06:32] LABS: MAGNESIUM LEVEL 1.8 MG/DL (1.8-2.4)
[2023-03-25] MEDS: SUCRALFATE 1 GM TAB PO SCH ×4 (08:17→20:30)
[2023-03-25] MEDS: PANTOPRAZOLE 40MG TAB (PROTONIX) PO SCH ×2 (08:18→20:30)
[2023-03-25] MEDS: FOLIC ACID 1MG TAB PO SCH (08:18)
[2023-03-25] MEDS: METOPROLOL TART 12.5 MG PER 1/2 TAB PO SCH ×2 (08:18→20:29)
[2023-03-25] MEDS: FERROUS GLUCONATE 324 MG TAB PO SCH ×2 (08:18→20:30)
[2023-03-25] MEDS: DOCUSATE SODIUM 100MG CAPSULE PO SCH ×2 (08:18→20:30)
[2023-03-25] MEDS: VITAMIN D 1,000 INTERNATIONAL UNITS TABLET PO SCH (08:20)
[2023-03-25] MEDS ORDERED: FERROUS SULFATE 325MG TAB PO SCH (11:05)
[2023-03-25] MEDS: LIDOCAINE 5% (LIDODERM) PATCH TD SCH (12:54)
[2023-03-25] MEDS: TERAZOSIN 1 MG CAP PO SCH (20:30)
[2023-03-25] MEDS: ATORVASTATIN 20 MG TAB PO SCH (20:30)
[2023-03-26] VITALS (8 sets, daily range): BP systolic 127–164; BP diastolic 55–67; TEMP 96.9–99; O2SAT 91–100
[2023-03-26 04:13] LABS: BASO % 0.5 % (0.0-1.0); EOS # 0.2 10^3/uL (0.0-0.5); EOS % 3.5 % (0.0-3.0); HEMATOCRIT 24.6 % (42.0-52.0); HEMOGLOBIN 7.6 g/dl (13.5-17.5); LYMPH # 0.5 10^3/uL (1.5-5.0); LYMPH % 9.5 % (24.0-44.0); MEAN CORPUSCULAR HEMOGLOBIN 28.1 pg (27.0-33.0); MEAN CORPUSCULAR HGB CONC 30.9 g/dl (32.0-36.5); MEAN CORPUSCULAR VOLUME 91.1 fl (80.0-96.0); MONO # 0.6 10^3/uL (0.0-0.8); MONO % 11.3 % (2.0-8.0); NEUTROPHILS # 4.2 10^3/uL (1.5-8.5); NEUTROPHILS % 74.8 % (36.0-66.0); PLATELET COUNT, AUTOMATED 127 10^3/uL (150-450); WHITE BLOOD COUNT 5.7 10^3/uL (4.0-10.0)
[2023-03-26 04:37] LABS: CALCIUM LEVEL 8.1 MG/DL (8.3-10.6); CREATININE FOR GFR 1.75 MG/DL (0.70-1.30); GLOMERULAR FILTRATION RATE 40.7 (>42); MAGNESIUM LEVEL 1.6 MG/DL (1.8-2.4); POTASSIUM SERUM 3.9 MMOL/L (3.5-5.1)
[2023-03-26] MEDS: MAG SULF 1GM/100ML (MAG RUN) 100 ML IV SCH ×2 (05:24→09:03)
[2023-03-26 07:21] LABS: PERCENT SATURATION 5.6 % (19.7-50.0)
[2023-03-26 07:23] LABS: FERRITIN 118.6 NG/ML (10.5-307.3)
[2023-03-26 07:24] LABS: FOLATE 22.1 NG/ML (>5.4)
[2023-03-26] MEDS: METOPROLOL TART 12.5 MG PER 1/2 TAB PO SCH ×2 (09:03→20:00)
[2023-03-26] MEDS: DOCUSATE SODIUM 100MG CAPSULE PO SCH ×2 (09:03→19:59)
[2023-03-26] MEDS: LIDOCAINE 5% (LIDODERM) PATCH TD SCH (09:04)
[2023-03-26] MEDS: MAGNESIUM OXIDE 400MG TAB (MAG-OX) PO SCH ×2 (09:04→20:01)
[2023-03-26] MEDS: FERROUS GLUCONATE 324 MG TAB PO SCH ×2 (09:04→20:00)
[2023-03-26] MEDS: PANTOPRAZOLE 40MG TAB (PROTONIX) PO SCH ×2 (09:04→20:00)
[2023-03-26] MEDS: SUCRALFATE 1 GM TAB PO SCH ×4 (09:04→20:01)
[2023-03-26] MEDS: VITAMIN D 1,000 INTERNATIONAL UNITS TABLET PO SCH (09:04)
[2023-03-26] MEDS: FOLIC ACID 1MG TAB PO SCH (09:04)
[2023-03-26 10:15] LABS: HEMATOCRIT 29.4 % (42.0-52.0); HEMOGLOBIN 8.9 g/dl (13.5-17.5)
[2023-03-26] MEDS: TORSEMIDE 20 MG TAB PO SCH (13:11)
[2023-03-26] MEDS: ATORVASTATIN 20 MG TAB PO SCH (19:59)
[2023-03-26] MEDS: TERAZOSIN 1 MG CAP PO SCH (20:00)
[2023-03-26] MEDS: ACETAMINOPHEN TAB 650MG DOSE (2X325MG) PO PRN (22:13)
[2023-03-27 05:01] VITALS: BP 119/54; TEMP 98.8; O2SAT 95
[2023-03-27 06:51] LABS: BASO # 0.1 10^3/uL (0.0-0.2); BASO % 0.9 % (0.0-1.0); EOS # 0.3 10^3/uL (0.0-0.5); EOS % 4.1 % (0.0-3.0); HEMATOCRIT 27.9 % (42.0-52.0); HEMOGLOBIN 8.8 g/dl (13.5-17.5); LYMPH # 0.6 10^3/uL (1.5-5.0); LYMPH % 8.3 % (24.0-44.0); MEAN CORPUSCULAR HEMOGLOBIN 28.1 pg (27.0-33.0); MEAN CORPUSCULAR HGB CONC 31.5 g/dl (32.0-36.5); MEAN CORPUSCULAR VOLUME 89.1 fl (80.0-96.0); MONO # 0.6 10^3/uL (0.0-0.8); NEUTROPHILS # 5.2 10^3/uL (1.5-8.5); NEUTROPHILS % 77.4 % (36.0-66.0); PLATELET COUNT, AUTOMATED 185 10^3/uL (150-450); RED BLOOD COUNT 3.13 10^6/uL (4.30-6.10); WHITE BLOOD COUNT 6.8 10^3/uL (4.0-10.0)
[2023-03-27 07:14] LABS: CALCIUM LEVEL 9.1 MG/DL (8.3-10.6); CREATININE FOR GFR 1.75 MG/DL (0.70-1.30); GLOMERULAR FILTRATION RATE 40.7 (>42); MAGNESIUM LEVEL 1.8 MG/DL (1.8-2.4); POTASSIUM SERUM 3.8 MMOL/L (3.5-5.1)
[2023-03-27] MEDS: MAGNESIUM OXIDE 400MG TAB (MAG-OX) PO SCH ×2 (08:30→21:01)
[2023-03-27] MEDS: FOLIC ACID 1MG TAB PO SCH (08:30)
[2023-03-27] MEDS: FERROUS GLUCONATE 324 MG TAB PO SCH ×2 (08:30→21:01)
[2023-03-27] MEDS: SUCRALFATE 1 GM TAB PO SCH ×4 (08:30→21:01)
[2023-03-27] MEDS: DOCUSATE SODIUM 100MG CAPSULE PO SCH ×2 (08:30→20:57)
[2023-03-27] MEDS: VITAMIN D 1,000 INTERNATIONAL UNITS TABLET PO SCH (08:30)
[2023-03-27] MEDS: TORSEMIDE 20 MG TAB PO SCH (08:30)
[2023-03-27] MEDS: LIDOCAINE 5% (LIDODERM) PATCH TD SCH (08:31)
[2023-03-27] MEDS: PANTOPRAZOLE 40MG TAB (PROTONIX) PO SCH ×2 (08:31→20:57)
[2023-03-27] MEDS: METOPROLOL TART 12.5 MG PER 1/2 TAB PO SCH ×2 (08:31→21:01)
[2023-03-27 14:00] VITALS: BP 119/52; TEMP 98.1; O2SAT 95
[2023-03-27] MEDS ORDERED: FERRIC CARBOXYMALTOSE INJ 750 MG, VIAL MATE ADAPTER 1 EACH in NS 250 ML IV ONE (14:00)
[2023-03-27] MEDS: TERAZOSIN 1 MG CAP PO SCH (21:00)
[2023-03-27] MEDS: ATORVASTATIN 20 MG TAB PO SCH (21:03)
[2023-03-27 21:52] VITALS: BP 118/46; TEMP 97.2; O2SAT 94
[2023-03-28 06:00] VITALS: BP 141/66; TEMP 99.3; O2SAT 91
[2023-03-28 06:29] LABS: BASO % 0.7 % (0.0-1.0); EOS # 0.3 10^3/uL (0.0-0.5); EOS % 5.2 % (0.0-3.0); HEMATOCRIT 27.5 % (42.0-52.0); HEMOGLOBIN 8.7 g/dl (13.5-17.5); LYMPH # 0.5 10^3/uL (1.5-5.0); LYMPH % 8.6 % (24.0-44.0); MEAN CORPUSCULAR HEMOGLOBIN 27.9 pg (27.0-33.0); MEAN CORPUSCULAR HGB CONC 31.6 g/dl (32.0-36.5); MEAN CORPUSCULAR VOLUME 88.1 fl (80.0-96.0); MONO # 0.6 10^3/uL (0.0-0.8); MONO % 9.8 % (2.0-8.0); NEUTROPHILS # 4.4 10^3/uL (1.5-8.5); NEUTROPHILS % 75.4 % (36.0-66.0); PLATELET COUNT, AUTOMATED 201 10^3/uL (150-450); RED BLOOD COUNT 3.12 10^6/uL (4.30-6.10); WHITE BLOOD COUNT 5.8 10^3/uL (4.0-10.0)
[2023-03-28 06:57] LABS: CREATININE FOR GFR 1.85 MG/DL (0.70-1.30); GLOMERULAR FILTRATION RATE 38.1 (>42); MAGNESIUM LEVEL 1.6 MG/DL (1.8-2.4); POTASSIUM SERUM 3.7 MMOL/L (3.5-5.1)
[2023-03-28] MEDS ORDERED: MOM 30ML SUSPENSION UDC PO ONE (09:00)
[2023-03-28] MEDS ORDERED: TORSEMIDE 20 MG TAB PO SCH (09:00)
[2023-03-28] MEDS ORDERED: MIRALAX *UNIT DOSE* 17GM PACKET PO SCH (09:00)
[2023-03-28] MEDS ORDERED: HEPARIN SOD (PORCINE) 5000UNITS/ML 1ML VIAL/SYRINGE SQ SCH (09:00)
[2023-03-28 09:49] VITALS: BP 141/65
[2023-03-28] MEDS: METOPROLOL TART 12.5 MG PER 1/2 TAB PO SCH (09:49)
[2023-03-28] MEDS: PANTOPRAZOLE 40MG TAB (PROTONIX) PO SCH (09:50)
[2023-03-28] MEDS: VITAMIN D 1,000 INTERNATIONAL UNITS TABLET PO SCH (09:50)
[2023-03-28] MEDS: MAGNESIUM OXIDE 400MG TAB (MAG-OX) PO SCH (09:50)
[2023-03-28] MEDS: DOCUSATE SODIUM 100MG CAPSULE PO SCH (09:50)
[2023-03-28] MEDS: FOLIC ACID 1MG TAB PO SCH (09:50)
[2023-03-28] MEDS: FERROUS GLUCONATE 324 MG TAB PO SCH (09:50)
[2023-03-28] MEDS: MAG SULF 1GM/100ML (MAG RUN) 1 GM in IV 1 EA IV SCH ×2 (09:51→10:59)
[2023-03-28] MEDS: SUCRALFATE 1 GM TAB PO SCH ×2 (09:51→13:54)
[2023-03-28] MEDS: LIDOCAINE 5% (LIDODERM) PATCH TD SCH (09:51)
[2023-03-28] MEDS ORDERED: BISACODYL 10MG SUPP PR ONE (12:30)
[2023-03-28 14:00] VITALS: BP 108/48; TEMP 98.8; O2SAT 92
[2023-03-28] MEDS ORDERED: FERR32TA PO (14:28)
[2023-03-28] MEDS ORDERED: MIRA1POW3 PO (14:28)
[2023-03-28] MEDS ORDERED: TORS20TA2 PO (14:28)
[2023-03-28] MEDS ORDERED: MAGN400T2 PO (14:28)
[2023-03-28] MEDS ORDERED: POTA-151 PO (14:28)
[2023-03-28] MEDS ORDERED: ATOR40TA75 PO (14:46)
== END 2023-03-28 17:02 | disposition home health service (06) | DRG 312 ==
LOC: M ED 17:21 → M ED INP 22:18 → M PCU 03-24 → M MSPAV 03-26 14:26
PROVIDERS: ADMIT Family Medicine; ATTEND Internal Medicine
PROC: B246ZZZ Ultrasonography of Right and Left Heart (ICD-10-PCS; principal; 2023-03-24)
PROC: 30233N1 Transfusion of Nonautologous Red Blood Cells into Peripheral Vein, Percutaneous Approach (ICD-10-PCS; 2023-03-24)
DX: R55 Syncope and collapse (principal); I50.32 Chronic diastolic (congestive) heart failure; I13.0 Hypertensive heart and chronic kidney disease with heart failure and stage 1 through stage 4 chronic kidney disease, or unspecified chronic kidney disease; E87.20 Acidosis, unspecified; N17.9 Acute kidney failure, unspecified; I47.20 Ventricular tachycardia, unspecified; I48.0 Paroxysmal atrial fibrillation; D50.9 Iron deficiency anemia, unspecified; E83.42 Hypomagnesemia; I27.29 Other secondary pulmonary hypertension; I36.0 Nonrheumatic tricuspid (valve) stenosis; I35.0 Nonrheumatic aortic (valve) stenosis; N40.1 Benign prostatic hyperplasia with lower urinary tract symptoms; E78.5 Hyperlipidemia, unspecified; I48.91 Unspecified atrial fibrillation; E11.22 Type 2 diabetes mellitus with diabetic chronic kidney disease; M25.562 Pain in left knee; M17.12 Unilateral primary osteoarthritis, left knee; E86.0 Dehydration; R26.89 Other abnormalities of gait and mobility; R32 Unspecified urinary incontinence; K26.9 Duodenal ulcer, unspecified as acute or chronic, without hemorrhage or perforation; C88.0 Waldenstrom macroglobulinemia; E55.9 Vitamin D deficiency, unspecified; R42 Dizziness and giddiness; N18.30 Chronic kidney disease, stage 3 unspecified; J84.112 Idiopathic pulmonary fibrosis; D47.2 Monoclonal gammopathy; Z95.3 Presence of xenogenic heart valve; Z79.899 Other long term (current) drug therapy; Z79.84 Long term (current) use of oral hypoglycemic drugs; Z87.891 Personal history of nicotine dependence

== ENCOUNTER → 2023-04-05 | Outpatient (REF) | payer OTHER ==
[~2023-04-05] MED LIST changes: +JARD1TAB3 PO; +MAGN400T2 PO; +MIRA1POW3 PO; +POTA-151 PO; +POTA-298; +TORS20TA2 PO
[2023-04-05 14:29] LABS: BASO # 0.1 10^3/uL (0.0-0.2); EOS # 0.2 10^3/uL (0.0-0.5); EOS % 3.3 % (0.0-3.0); HEMATOCRIT 31.8 % (42.0-52.0); HEMOGLOBIN 9.8 g/dl (13.5-17.5); LYMPH # 0.6 10^3/uL (1.5-5.0); LYMPH % 9.9 % (24.0-44.0); MEAN CORPUSCULAR HEMOGLOBIN 28.5 pg (27.0-33.0); MEAN CORPUSCULAR HGB CONC 30.8 g/dl (32.0-36.5); MEAN CORPUSCULAR VOLUME 92.4 fl (80.0-96.0); MONO # 0.5 10^3/uL (0.0-0.8); MONO % 8.1 % (2.0-8.0); NEUTROPHILS # 4.7 10^3/uL (1.5-8.5); NEUTROPHILS % 77.2 % (36.0-66.0); PLATELET COUNT, AUTOMATED 327 10^3/uL (150-450); RED BLOOD COUNT 3.44 10^6/uL (4.30-6.10); WHITE BLOOD COUNT 6.1 10^3/uL (4.0-10.0)
[2023-04-05 15:00] LABS: CREATININE FOR GFR 1.94 MG/DL (0.70-1.30); GLOMERULAR FILTRATION RATE 36.1 (>42); POTASSIUM SERUM 4.3 MMOL/L (3.5-5.1)
== END ==
LOC: M SHH 14:15
DX: N18.30 Chronic kidney disease, stage 3 unspecified (principal); D63.8 Anemia in other chronic diseases classified elsewhere; I50.20 Unspecified systolic (congestive) heart failure

== ENCOUNTER → 2023-11-24 | Outpatient (CLI) | payer OTHER, MEDICARE ==
[~2023-11-24] MED LIST changes: +CEFD1CAP9 PO; -CEFD300C41 PO; -MIRA1POW3 PO; +MIRA33506 PO
== END ==
LOC: M PLAIMG 07:37
PROVIDERS: ATTEND Internal Medicine Pulmonary Disease
DX: J84.112 Idiopathic pulmonary fibrosis (principal)

== ENCOUNTER 2024-02-18 11:43 | Emergency (ER) | payer OTHER, MEDICARE ==
[~2024-02-18] VITALS: Ht 180.3 cm; Wt 94.2 kg
[2024-02-18] MEDS ORDERED: TORS10TA3 (12:05)
[2024-02-18 16:10] VITALS: BP 163/70; TEMP 97.4; O2SAT 96
== END 2024-02-18 16:25 | disposition home or self-care (01) ==
LOC: M ED 11:43
DX: J84.112 Idiopathic pulmonary fibrosis (principal); R06.00 Dyspnea, unspecified; K21.9 Gastro-esophageal reflux disease without esophagitis; Z79.899 Other long term (current) drug therapy

== ENCOUNTER → 2024-03-01 | Outpatient (REF) | payer OTHER, MEDICARE ==
[~2024-03-01] MED LIST changes: +TORS10TA3
[2024-03-02 09:51] LABS: PERCENT SATURATION 19.9 % (19.7-50.0)
== END ==
LOC: M LAB REF 17:11
PROVIDERS: ATTEND Internal Medicine Nephrology
DX: D50.9 Iron deficiency anemia, unspecified (principal)

== ENCOUNTER 2024-03-20 12:07 | Outpatient (CLI) | payer MEDICARE, OTHER ==
[~2024-03-20] VITALS: Ht 180.3 cm; Wt 94.0 kg
[~2024-03-20 12:07] MED LIST changes: +ALBUTEROL SULFATE 2.5MG/0.5ML INH NEB SOLN INH PRN; +EPINEPHrine INJ 1 MG/ML 1ML AMP IM PRN; +NS 1,000 ML IV SCH; +diphenhydrAMINE 50MG/ML VIAL IV PRN; +methylPREDNISolone 125MG 2ML VIAL IV PRN
[2024-03-20 13:10] VITALS: BP 164/77; O2SAT 96
[2024-03-20] MEDS: IRON SUCROSE 300 MG in NS 250 ML IV ONE (13:31)
[2024-03-20 15:25] VITALS: BP 163/82; O2SAT 96
[2024-03-21] MEDS ORDERED: TORS20TA2 PO (18:37)
[2024-03-21] MEDS ORDERED: FERR32TA PO (18:37)
[2024-03-21] MEDS ORDERED: ASPI81TA26 PO (18:37)
== END 2024-03-20 15:25 ==
LOC: M INFU 12:07
PROVIDERS: ATTEND Internal Medicine Hematology
DX: D50.9 Iron deficiency anemia, unspecified (principal)
CPT/HCPCS: 96365; 96366; J1756

== ENCOUNTER 2024-03-21 12:58 | Observation (INO) | payer MEDICARE ==
[~2024-03-21] VITALS: Ht 180.3 cm; Wt 90.8 kg
[~2024-03-21 12:58] MED LIST changes: -ALBUTEROL SULFATE 2.5MG/0.5ML INH NEB SOLN INH PRN; -EPINEPHrine INJ 1 MG/ML 1ML AMP IM PRN; -NS 1,000 ML IV SCH; -diphenhydrAMINE 50MG/ML VIAL IV PRN; -methylPREDNISolone 125MG 2ML VIAL IV PRN
[2024-03-21 14:24] LABS: BASO # 0.1 10^3/uL (0.0-0.2); BASO % 1.1 % (0.0-1.0); EOS # 0.1 10^3/uL (0.0-0.5); EOS % 1.7 % (0.0-3.0); HEMOGLOBIN 9.9 g/dl (13.5-17.5); LYMPH # 0.4 10^3/uL (1.5-5.0); LYMPH % 6.9 % (24.0-44.0); MEAN CORPUSCULAR HEMOGLOBIN 29.7 pg (27.0-33.0); MEAN CORPUSCULAR HGB CONC 30.9 g/dl (32.0-36.5); MEAN CORPUSCULAR VOLUME 96.1 fl (80.0-96.0); MONO # 0.4 10^3/uL (0.0-0.8); MONO % 7.8 % (2.0-8.0); NEUTROPHILS # 4.4 10^3/uL (1.5-8.5); NEUTROPHILS % 82.1 % (36.0-66.0); PLATELET COUNT, AUTOMATED 136 10^3/uL (150-450); RED BLOOD COUNT 3.33 10^6/uL (4.30-6.10); WHITE BLOOD COUNT 5.4 10^3/uL (4.0-10.0)
[2024-03-21] MEDS: ALBUTEROL SULFATE 2.5MG/0.5ML INH NEB SOLN INH ONE (14:34)
[2024-03-21] MEDS: IPRATROPIUM 0.5MG/ALBUTEROL 2.5MG INH SOL UD 3ML (DUONEB) NEB ONE (14:34)
[2024-03-21 14:41] LABS: ABG BASE EXCESS -0.9 (-2.0-2.0); ABG O2 SATURATION 99.3 % (95.0-99.0); ABG PARTIAL PRESSURE CO2 40.5 mmHg (35.0-45.0); ABG PARTIAL PRESSURE O2 180.7 mmHg (75.0-100.0); ABG STANDARD HCO3 23.8 MMOL/L. (22.0-26.0); ABG TOTAL CO2 25.2 MMOL/L (23.0-31.0)
[2024-03-21] MEDS: methylPREDNISolone 125MG 2ML VIAL IV ONE (14:47)
[2024-03-21 14:48] LABS: CPK CREATINE PHOSPHOKINASE 58 U/L (46-171)
[2024-03-21 14:49] LABS: ALBUMIN 3.4 G/DL (3.2-5.2); ALKALINE PHOSPHATASE 112 U/L (46-116); ALT/SGPT 16 U/L (7.0-40); AST/SGOT 15 U/L (<34); BILIRUBIN,DIRECT 0.4 MG/DL (<0.4); BILIRUBIN,TOTAL 0.8 MG/DL (0.3-1.2); BLOOD UREA NITROGEN 26 MG/DL (9-23); CALCIUM LEVEL 8.9 MG/DL (8.3-10.6); CARBON DIOXIDE LEVEL 25 MMOL/L (20-31); CHLORIDE LEVEL 109 MMOL/L (98-107); CREATININE FOR GFR 1.71 MG/DL (0.70-1.30); GLOMERULAR FILTRATION RATE 41.6 (>42); GLUCOSE, FASTING 106 MG/DL (74-106); POTASSIUM SERUM 4.2 MMOL/L (3.5-5.1); SODIUM LEVEL 142 MMOL/L (136-145); TOTAL PROTEIN 7.6 G/DL (5.7-8.2)
[2024-03-21 14:59] LABS: CK-MB VALUE MASS < 1.0 NG/ML (<3.6); MB/CK RELATIVE INDEX 1.72 (< OR =4)
[2024-03-21 16:03] LABS: CK-MB VALUE MASS < 1.0 NG/ML (<3.6)
[2024-03-21 16:04] LABS: CPK CREATINE PHOSPHOKINASE 58 U/L (46-171); MB/CK RELATIVE INDEX 1.72 (< OR =4)
[2024-03-21] MEDS: FUROSEMIDE 20MG/2ML VIAL IV ONE (17:24)
[2024-03-21] MEDS ORDERED: FERR32TA PO (18:37)
[2024-03-21] MEDS ORDERED: ASPI81TA26 PO (18:37)
[2024-03-21] MEDS ORDERED: TORS20TA2 PO (18:37)
[2024-03-21] MEDS: FUROSEMIDE 20MG/2ML VIAL IV STA (18:39)
[2024-03-21] MEDS ORDERED: HOME MED LIST COMPLETE! XX SCH (18:40)
[2024-03-21] MEDS: SUCRALFATE 1 GM TAB PO SCH (20:21)
[2024-03-21] MEDS: PANTOPRAZOLE 40MG TAB (PROTONIX) PO PRN (20:22)
[2024-03-21 21:46] VITALS: BP 160/75; TEMP 98.1; O2SAT 93
[2024-03-21] MEDS: DOCUSATE SODIUM 100MG CAPSULE PO SCH (22:15)
[2024-03-21] MEDS: TERAZOSIN 1 MG CAP PO SCH (22:16)
[2024-03-21] MEDS: FERROUS GLUCONATE 324 MG TAB PO SCH (22:16)
[2024-03-22] VITALS (23 sets, daily range): BP systolic 102–141; BP diastolic 52–66; TEMP 97.5–98.1; O2SAT 88–100
[2024-03-22 04:57] LABS: HEMATOCRIT 29.7 % (42.0-52.0); HEMOGLOBIN 9.2 g/dl (13.5-17.5); LYMPH # 0.3 10^3/uL (1.5-5.0); LYMPH % 6.8 % (24.0-44.0); MEAN CORPUSCULAR HEMOGLOBIN 29.6 pg (27.0-33.0); MEAN CORPUSCULAR VOLUME 95.5 fl (80.0-96.0); MONO # 0.2 10^3/uL (0.0-0.8); MONO % 4.4 % (2.0-8.0); NEUTROPHILS # 3.8 10^3/uL (1.5-8.5); NEUTROPHILS % 88.6 % (36.0-66.0); PLATELET COUNT, AUTOMATED 131 10^3/uL (150-450); RED BLOOD COUNT 3.11 10^6/uL (4.30-6.10); WHITE BLOOD COUNT 4.3 10^3/uL (4.0-10.0)
[2024-03-22 05:16] LABS: CALCIUM LEVEL 8.5 MG/DL (8.3-10.6); CREATININE FOR GFR 1.96 MG/DL (0.70-1.30); GLOMERULAR FILTRATION RATE 35.6 (>42); MAGNESIUM LEVEL 1.4 MG/DL (1.8-2.4); POTASSIUM SERUM 4.2 MMOL/L (3.5-5.1)
[2024-03-22] MEDS: MAGNESIUM OXIDE 400MG TAB (MAG-OX) PO STA (08:30)
[2024-03-22] MEDS: VITAMIN D 1,000 INTERNATIONAL UNITS TABLET PO SCH (08:30)
[2024-03-22] MEDS: ATORVASTATIN 20 MG TAB PO SCH (08:30)
[2024-03-22] MEDS: FOLIC ACID 1MG TAB PO SCH (08:31)
[2024-03-22] MEDS: MAG SULF 1GM/100ML (MAG RUN) 1 GM in IV 1 EA IV SCH (09:59)
[2024-03-22] MEDS: FUROSEMIDE 40MG/4ML VIAL IV ONE (09:59)
[2024-03-22] MEDS: HEPARIN SOD (PORCINE) 5000UNITS/ML 1ML VIAL/SYRINGE SC SCH (20:04)
[2024-03-23] VITALS (13 sets, daily range): BP systolic 131–150; BP diastolic 63; TEMP 97.6–98.6; O2SAT 88–94
[2024-03-23 05:38] LABS: BASO % 0.6 % (0.0-1.0); EOS # 0.2 10^3/uL (0.0-0.5); EOS % 3.2 % (0.0-3.0); HEMATOCRIT 30.7 % (42.0-52.0); HEMOGLOBIN 9.6 g/dl (13.5-17.5); LYMPH # 0.5 10^3/uL (1.5-5.0); LYMPH % 7.2 % (24.0-44.0); MEAN CORPUSCULAR HEMOGLOBIN 29.6 pg (27.0-33.0); MEAN CORPUSCULAR HGB CONC 31.3 g/dl (32.0-36.5); MEAN CORPUSCULAR VOLUME 94.8 fl (80.0-96.0); MONO # 0.5 10^3/uL (0.0-0.8); MONO % 7.5 % (2.0-8.0); NEUTROPHILS # 5.1 10^3/uL (1.5-8.5); NEUTROPHILS % 81.3 % (36.0-66.0); PLATELET COUNT, AUTOMATED 122 10^3/uL (150-450); RED BLOOD COUNT 3.24 10^6/uL (4.30-6.10); WHITE BLOOD COUNT 6.3 10^3/uL (4.0-10.0)
[2024-03-23 05:58] LABS: CALCIUM LEVEL 8.8 MG/DL (8.3-10.6); CREATININE FOR GFR 1.94 MG/DL (0.70-1.30); MAGNESIUM LEVEL 1.8 MG/DL (1.8-2.4)
[2024-03-23] MEDS: ASPIRIN 81MG ENTERIC TABLET PO SCH (09:35)
[2024-03-23] MEDS ORDERED: METO5TA PO (11:17)
[2024-03-23] MEDS ORDERED: MAGN400T35 PO (11:55)
== END 2024-03-23 13:53 | disposition home health service (06) ==
LOC: M ED 12:58 → EDBD 12:58 → M ED INP 12:59 → M PCU 21:50
PROVIDERS: ADMIT Internal Medicine; ATTEND Internal Medicine
DX: I50.23 Acute on chronic systolic (congestive) heart failure (principal); I27.81 Cor pulmonale (chronic); I27.0 Primary pulmonary hypertension; N18.30 Chronic kidney disease, stage 3 unspecified; I48.0 Paroxysmal atrial fibrillation; I49.2 Junctional premature depolarization; J84.112 Idiopathic pulmonary fibrosis; K21.9 Gastro-esophageal reflux disease without esophagitis; R06.02 Shortness of breath; E83.42 Hypomagnesemia; E78.5 Hyperlipidemia, unspecified; D50.9 Iron deficiency anemia, unspecified; E11.9 Type 2 diabetes mellitus without complications; N40.1 Benign prostatic hyperplasia with lower urinary tract symptoms; C88.0 Waldenstrom macroglobulinemia; Z79.82 Long term (current) use of aspirin; Z79.899 Other long term (current) drug therapy
CPT/HCPCS: 36415; 36600; 71045; 71250; 80048; 80076; 82550; 82553; 82803; 83735; 83880; 84484; 85025; 93005; 93041; 93970; 94640; 94760; 96361; 96372; 96374; 96375; 96376; 97116; 97161; 99285; G0378; J1940; J2919; J3475

== ENCOUNTER 2024-03-27 12:10 | Outpatient (CLI) | payer MEDICARE, OTHER ==
[~2024-03-27] VITALS: Ht 180.3 cm; Wt 90.5 kg
[~2024-03-27 12:10] MED LIST changes: +ALBUTEROL SULFATE 2.5MG/0.5ML INH NEB SOLN INH PRN; +ASPI81TA26 PO; +EPINEPHrine INJ 1 MG/ML 1ML AMP IM PRN; +MAGN400T35 PO; +METO5TA PO; +NS 1,000 ML IV SCH; +diphenhydrAMINE 50MG/ML VIAL IV PRN; +methylPREDNISolone 125MG 2ML VIAL IV PRN
[2024-03-27 12:15] VITALS: BP 148/70; O2SAT 92
[2024-03-27] MEDS: IRON SUCROSE 300 MG in NS 250 ML IV ONE (14:19)
[2024-03-27] MEDS: FUROSEMIDE 20 MG TAB PO ONE (14:19)
[2024-03-27 15:55] VITALS: BP 147/65; O2SAT 95
== END 2024-03-27 16:10 ==
LOC: M INFU 12:10
PROVIDERS: ATTEND Internal Medicine Hematology
DX: D50.9 Iron deficiency anemia, unspecified (principal)
CPT/HCPCS: 96365; 96366; J1756

== ENCOUNTER 2024-04-03 12:45 | Outpatient (CLI) | payer MEDICARE, OTHER ==
[~2024-04-03] VITALS: Ht 180.3 cm; Wt 88.1 kg
[2024-04-03 12:45] VITALS: BP 137/65; O2SAT 91
[~2024-04-03 12:45] MED LIST changes: -NS 1,000 ML IV SCH
[2024-04-03] MEDS ORDERED: NS 1,000 ML IV SCH (13:00)
[2024-04-03] MEDS: IRON SUCROSE 300 MG in NS 250 ML OVER 90 MIN. IV ONE (13:07)
[2024-04-03 15:00] VITALS: BP 155/72; O2SAT 97
== END 2024-04-03 15:00 ==
LOC: M INFU 12:45
PROVIDERS: ATTEND Internal Medicine Hematology
DX: D50.9 Iron deficiency anemia, unspecified (principal)
CPT/HCPCS: 96365; 96366; J1756

== ENCOUNTER → 2024-04-11 | Outpatient (REF) | payer MEDICARE ==
[~2024-04-11] MED LIST changes: -ALBUTEROL SULFATE 2.5MG/0.5ML INH NEB SOLN INH PRN; -EPINEPHrine INJ 1 MG/ML 1ML AMP IM PRN; -diphenhydrAMINE 50MG/ML VIAL IV PRN; -methylPREDNISolone 125MG 2ML VIAL IV PRN
[2024-04-11 17:47] LABS: HEMATOCRIT 35.7 % (42.0-52.0); HEMOGLOBIN 11.1 g/dl (13.5-17.5); MEAN CORPUSCULAR HEMOGLOBIN 30.9 pg (27.0-33.0); MEAN CORPUSCULAR HGB CONC 31.1 g/dl (32.0-36.5); MEAN CORPUSCULAR VOLUME 99.4 fl (80.0-96.0); PLATELET COUNT, AUTOMATED 194 10^3/uL (150-450); RED BLOOD COUNT 3.59 10^6/uL (4.30-6.10)
[2024-04-11 17:55] LABS: ALBUMIN 3.5 G/DL (3.2-5.2); BILIRUBIN,TOTAL 0.5 MG/DL (0.3-1.2); CALCIUM LEVEL 9.1 MG/DL (8.3-10.6); CREATININE FOR GFR 2.06 MG/DL (0.70-1.30); GLOMERULAR FILTRATION RATE 33.6 (>42); POTASSIUM SERUM 4.2 MMOL/L (3.5-5.1); TOTAL PROTEIN 7.7 G/DL (5.7-8.2)
== END ==
LOC: M SHH 16:35
PROVIDERS: ATTEND Physician Assistant Medical
DX: I50.20 Unspecified systolic (congestive) heart failure (principal); I27.21 Secondary pulmonary arterial hypertension

== ENCOUNTER → 2024-04-25 | Outpatient (REF) | payer OTHER, MEDICARE ==
[2024-04-25 15:53] LABS: HEMATOCRIT 34.5 % (42.0-52.0); HEMOGLOBIN 10.8 g/dl (13.5-17.5); MEAN CORPUSCULAR HEMOGLOBIN 30.3 pg (27.0-33.0); MEAN CORPUSCULAR HGB CONC 31.3 g/dl (32.0-36.5); MEAN CORPUSCULAR VOLUME 96.6 fl (80.0-96.0); PLATELET COUNT, AUTOMATED 173 10^3/uL (150-450); RED BLOOD COUNT 3.57 10^6/uL (4.30-6.10); WHITE BLOOD COUNT 6.8 10^3/uL (4.0-10.0)
[2024-04-25 16:08] LABS: ALBUMIN 3.5 G/DL (3.2-5.2); BILIRUBIN,TOTAL 0.7 MG/DL (0.3-1.2); CALCIUM LEVEL 9.6 MG/DL (8.3-10.6); CREATININE FOR GFR 2.15 MG/DL (0.70-1.30); POTASSIUM SERUM 3.8 MMOL/L (3.5-5.1); TOTAL PROTEIN 7.9 G/DL (5.7-8.2)
== END ==
LOC: M SHH 15:15
PROVIDERS: ATTEND Physician Assistant Medical
DX: I50.20 Unspecified systolic (congestive) heart failure (principal); I27.21 Secondary pulmonary arterial hypertension

== ENCOUNTER → 2024-04-27 | Outpatient (CLI) | payer MEDICARE | LOC: M RAD 07:42 | PROVIDERS: ATTEND Internal Medicine Nephrology | DX: I70.1 Atherosclerosis of renal artery (principal) ==

== ENCOUNTER → 2024-05-02 | Outpatient (REF) | payer MEDICARE ==
[~2024-05-02] MED LIST changes: +GLIP10TA15 PO; -GLIP10TA6 PO
[2024-05-02 13:53] LABS: MEAN CORPUSCULAR HEMOGLOBIN 30.4 pg (27.0-33.0); MEAN CORPUSCULAR HGB CONC 31.4 g/dl (32.0-36.5); MEAN CORPUSCULAR VOLUME 96.7 fl (80.0-96.0); PLATELET COUNT, AUTOMATED 170 10^3/uL (150-450); RED BLOOD COUNT 3.62 10^6/uL (4.30-6.10); WHITE BLOOD COUNT 5.8 10^3/uL (4.0-10.0)
[2024-05-02 14:08] LABS: ALBUMIN 3.4 G/DL (3.2-5.2); BILIRUBIN,TOTAL 0.6 MG/DL (0.3-1.2); CALCIUM LEVEL 9.1 MG/DL (8.3-10.6); CREATININE FOR GFR 2.02 MG/DL (0.70-1.30); GLOMERULAR FILTRATION RATE 34.4 (>42); POTASSIUM SERUM 4.1 MMOL/L (3.5-5.1); TOTAL PROTEIN 7.8 G/DL (5.7-8.2)
== END ==
LOC: M SHH 13:01
PROVIDERS: ATTEND Physician Assistant Medical
DX: Z00.00 Encounter for general adult medical examination without abnormal findings (principal); D50.9 Iron deficiency anemia, unspecified

== ENCOUNTER → 2024-05-09 | Outpatient (REF) | payer MEDICARE ==
[~2024-05-09] MED LIST changes: -GLIP10TA15 PO; +GLIP10TA6 PO
[2024-05-09 13:14] LABS: BASO # 0.1 10^3/uL (0.0-0.2); BASO % 0.7 % (0.0-1.0); EOS # 0.2 10^3/uL (0.0-0.5); EOS % 2.3 % (0.0-3.0); HEMATOCRIT 35.6 % (42.0-52.0); HEMOGLOBIN 11.1 g/dl (13.5-17.5); LYMPH # 0.4 10^3/uL (1.5-5.0); LYMPH % 6.3 % (24.0-44.0); MEAN CORPUSCULAR HEMOGLOBIN 29.8 pg (27.0-33.0); MEAN CORPUSCULAR HGB CONC 31.2 g/dl (32.0-36.5); MEAN CORPUSCULAR VOLUME 95.7 fl (80.0-96.0); MONO # 0.4 10^3/uL (0.0-0.8); MONO % 6.2 % (2.0-8.0); NEUTROPHILS # 5.9 10^3/uL (1.5-8.5); NEUTROPHILS % 84.1 % (36.0-66.0); PLATELET COUNT, AUTOMATED 182 10^3/uL (150-450); RED BLOOD COUNT 3.72 10^6/uL (4.30-6.10)
[2024-05-09 13:56] LABS: ALBUMIN 3.6 G/DL (3.2-5.2); BILIRUBIN,TOTAL 0.6 MG/DL (0.3-1.2); CALCIUM LEVEL 9.6 MG/DL (8.3-10.6); CREATININE FOR GFR 2.3 MG/DL (0.70-1.30); GLOMERULAR FILTRATION RATE 29.6 (>42); POTASSIUM SERUM 3.9 MMOL/L (3.5-5.1); TOTAL PROTEIN 8.1 G/DL (5.7-8.2)
== END ==
LOC: M SHH 12:55
PROVIDERS: ATTEND Physician Assistant Medical
DX: I50.20 Unspecified systolic (congestive) heart failure (principal); I27.21 Secondary pulmonary arterial hypertension

== ENCOUNTER → 2024-05-17 | Outpatient (REF) | payer MEDICARE ==
[~2024-05-17] MED LIST changes: +GLIP10TA15 PO; -GLIP10TA6 PO
[2024-05-17 15:12] LABS: HEMATOCRIT 36.8 % (42.0-52.0); HEMOGLOBIN 11.7 g/dl (13.5-17.5); MEAN CORPUSCULAR HEMOGLOBIN 30.8 pg (27.0-33.0); MEAN CORPUSCULAR HGB CONC 31.8 g/dl (32.0-36.5); MEAN CORPUSCULAR VOLUME 96.8 fl (80.0-96.0); PLATELET COUNT, AUTOMATED 208 10^3/uL (150-450); WHITE BLOOD COUNT 6.4 10^3/uL (4.0-10.0)
[2024-05-17 15:47] LABS: ALBUMIN 3.5 G/DL (3.2-5.2); BILIRUBIN,TOTAL 0.6 MG/DL (0.3-1.2); CALCIUM LEVEL 9.6 MG/DL (8.3-10.6); CREATININE FOR GFR 2.07 MG/DL (0.70-1.30); GLOMERULAR FILTRATION RATE 33.3 (>42); TOTAL PROTEIN 8.2 G/DL (5.7-8.2)
== END ==
LOC: M SHH 14:55
PROVIDERS: ATTEND Physician Assistant Medical
DX: I50.20 Unspecified systolic (congestive) heart failure (principal); I27.21 Secondary pulmonary arterial hypertension

== ENCOUNTER → 2024-05-17 | Outpatient (CLI) | payer MEDICARE | LOC: M PLAIMG 10:28 | PROVIDERS: ATTEND Internal Medicine Hematology | DX: D47.2 Monoclonal gammopathy (principal); I50.20 Unspecified systolic (congestive) heart failure; I27.21 Secondary pulmonary arterial hypertension ==

== ENCOUNTER → 2024-05-30 | Outpatient (REF) | payer MEDICARE, OTHER ==
[2024-05-30 15:27] LABS: HEMATOCRIT 35.5 % (42.0-52.0); HEMOGLOBIN 11.4 g/dl (13.5-17.5); MEAN CORPUSCULAR HEMOGLOBIN 30.8 pg (27.0-33.0); MEAN CORPUSCULAR HGB CONC 32.1 g/dl (32.0-36.5); MEAN CORPUSCULAR VOLUME 95.9 fl (80.0-96.0); PLATELET COUNT, AUTOMATED 188 10^3/uL (150-450)
[2024-05-30 16:04] LABS: ALBUMIN 3.3 G/DL (3.2-5.2); BILIRUBIN,TOTAL 0.6 MG/DL (0.3-1.2); CALCIUM LEVEL 9.4 MG/DL (8.3-10.6); CREATININE FOR GFR 1.9 MG/DL (0.70-1.30); GLOMERULAR FILTRATION RATE 36.8 (>42); POTASSIUM SERUM 3.7 MMOL/L (3.5-5.1); TOTAL PROTEIN 7.9 G/DL (5.7-8.2)
== END ==
LOC: M SHH 15:02
PROVIDERS: ATTEND Physician Assistant Medical
DX: I50.20 Unspecified systolic (congestive) heart failure (principal); I27.21 Secondary pulmonary arterial hypertension

== ENCOUNTER → 2024-06-06 | Outpatient (REF) | payer SELFPAY ==
[2024-06-06 16:06] LABS: HEMATOCRIT 36.1 % (42.0-52.0); HEMOGLOBIN 11.4 g/dl (13.5-17.5); MEAN CORPUSCULAR HEMOGLOBIN 30.2 pg (27.0-33.0); MEAN CORPUSCULAR HGB CONC 31.6 g/dl (32.0-36.5); MEAN CORPUSCULAR VOLUME 95.5 fl (80.0-96.0); PLATELET COUNT, AUTOMATED 198 10^3/uL (150-450); RED BLOOD COUNT 3.78 10^6/uL (4.30-6.10); WHITE BLOOD COUNT 6.2 10^3/uL (4.0-10.0)
[2024-06-06 16:37] LABS: ALBUMIN 3.3 G/DL (3.2-5.2); BILIRUBIN,TOTAL 0.5 MG/DL (0.3-1.2); CREATININE FOR GFR 1.98 MG/DL (0.70-1.30); GLOMERULAR FILTRATION RATE 35.1 (>42); TOTAL PROTEIN 7.7 G/DL (5.7-8.2)
== END ==
LOC: M SHH 15:17
PROVIDERS: ATTEND Physician Assistant Medical
DX: I50.20 Unspecified systolic (congestive) heart failure (principal); I27.21 Secondary pulmonary arterial hypertension

== ENCOUNTER → 2024-06-13 | Outpatient (REF) | payer MEDICARE ==
[2024-06-13 15:05] LABS: HEMATOCRIT 36.7 % (42.0-52.0); HEMOGLOBIN 11.6 g/dl (13.5-17.5); MEAN CORPUSCULAR HGB CONC 31.6 g/dl (32.0-36.5); MEAN CORPUSCULAR VOLUME 94.8 fl (80.0-96.0); PLATELET COUNT, AUTOMATED 206 10^3/uL (150-450); RED BLOOD COUNT 3.87 10^6/uL (4.30-6.10); WHITE BLOOD COUNT 6.1 10^3/uL (4.0-10.0)
[2024-06-13 15:22] LABS: ALBUMIN 3.5 G/DL (3.2-5.2); BILIRUBIN,TOTAL 0.5 MG/DL (0.3-1.2); CALCIUM LEVEL 9.3 MG/DL (8.3-10.6); CREATININE FOR GFR 1.88 MG/DL (0.70-1.30); GLOMERULAR FILTRATION RATE 37.2 (>42); POTASSIUM SERUM 4.1 MMOL/L (3.5-5.1); TOTAL PROTEIN 8.1 G/DL (5.7-8.2)
== END ==
LOC: M SHH 14:34
PROVIDERS: ATTEND Physician Assistant Medical
DX: I50.20 Unspecified systolic (congestive) heart failure (principal); I27.21 Secondary pulmonary arterial hypertension

== ENCOUNTER → 2024-06-20 | Outpatient (REF) | payer MEDICARE ==
[2024-06-20 18:04] LABS: HEMATOCRIT 35.9 % (42.0-52.0); HEMOGLOBIN 11.3 g/dl (13.5-17.5); MEAN CORPUSCULAR HEMOGLOBIN 30.1 pg (27.0-33.0); MEAN CORPUSCULAR HGB CONC 31.5 g/dl (32.0-36.5); MEAN CORPUSCULAR VOLUME 95.7 fl (80.0-96.0); PLATELET COUNT, AUTOMATED 171 10^3/uL (150-450); RED BLOOD COUNT 3.75 10^6/uL (4.30-6.10)
[2024-06-20 19:04] LABS: ALBUMIN 3.4 G/DL (3.2-5.2); BILIRUBIN,TOTAL 0.5 MG/DL (0.3-1.2); CALCIUM LEVEL 9.5 MG/DL (8.3-10.6); CREATININE FOR GFR 1.83 MG/DL (0.70-1.30); GLOMERULAR FILTRATION RATE 38.4 (>42); POTASSIUM SERUM 3.8 MMOL/L (3.5-5.1); TOTAL PROTEIN 7.7 G/DL (5.7-8.2)
== END ==
LOC: M SHH 17:18
PROVIDERS: ATTEND Physician Assistant Medical
DX: I50.20 Unspecified systolic (congestive) heart failure (principal); I27.21 Secondary pulmonary arterial hypertension

== ENCOUNTER → 2024-06-27 | Outpatient (REF) | payer MEDICARE ==
[2024-06-27 13:50] LABS: HEMATOCRIT 34.2 % (42.0-52.0); HEMOGLOBIN 10.8 g/dl (13.5-17.5); MEAN CORPUSCULAR HEMOGLOBIN 30.3 pg (27.0-33.0); MEAN CORPUSCULAR HGB CONC 31.6 g/dl (32.0-36.5); MEAN CORPUSCULAR VOLUME 96.1 fl (80.0-96.0); PLATELET COUNT, AUTOMATED 147 10^3/uL (150-450); RED BLOOD COUNT 3.56 10^6/uL (4.30-6.10); WHITE BLOOD COUNT 5.3 10^3/uL (4.0-10.0)
[2024-06-27 14:16] LABS: ALBUMIN 3.2 G/DL (3.2-5.2); BILIRUBIN,TOTAL 0.4 MG/DL (0.3-1.2); CALCIUM LEVEL 9.1 MG/DL (8.3-10.6); CREATININE FOR GFR 1.88 MG/DL (0.70-1.30); GLOMERULAR FILTRATION RATE 37.2 (>42); POTASSIUM SERUM 4.2 MMOL/L (3.5-5.1); TOTAL PROTEIN 7.4 G/DL (5.7-8.2)
== END ==
LOC: M SHH 13:15
PROVIDERS: ATTEND Physician Assistant Medical
DX: I50.20 Unspecified systolic (congestive) heart failure (principal); I27.20 Pulmonary hypertension, unspecified

== ENCOUNTER → 2024-07-04 | Outpatient (REF) | payer MEDICARE ==
[2024-07-04 14:19] LABS: HEMATOCRIT 32.1 % (42.0-52.0); HEMOGLOBIN 10.3 g/dl (13.5-17.5); MEAN CORPUSCULAR HEMOGLOBIN 30.4 pg (27.0-33.0); MEAN CORPUSCULAR HGB CONC 32.1 g/dl (32.0-36.5); MEAN CORPUSCULAR VOLUME 94.7 fl (80.0-96.0); PLATELET COUNT, AUTOMATED 156 10^3/uL (150-450); RED BLOOD COUNT 3.39 10^6/uL (4.30-6.10)
[2024-07-04 14:45] LABS: ALBUMIN 3.2 G/DL (3.2-5.2); BILIRUBIN,TOTAL 0.5 MG/DL (0.3-1.2); CALCIUM LEVEL 9.2 MG/DL (8.3-10.6); CREATININE FOR GFR 2.25 MG/DL (0.70-1.30); GLOMERULAR FILTRATION RATE 30.3 (>42); POTASSIUM SERUM 4.1 MMOL/L (3.5-5.1); TOTAL PROTEIN 7.3 G/DL (5.7-8.2)
== END ==
LOC: M SHH 13:20
PROVIDERS: ATTEND Physician Assistant Medical
DX: I50.20 Unspecified systolic (congestive) heart failure (principal); I27.21 Secondary pulmonary arterial hypertension

== ENCOUNTER → 2024-07-18 | Outpatient (REF) | payer MEDICARE, OTHER ==
[2024-07-18 13:22] LABS: HEMOGLOBIN 10.7 g/dl (13.5-17.5); MEAN CORPUSCULAR HGB CONC 31.5 g/dl (32.0-36.5); MEAN CORPUSCULAR VOLUME 95.2 fl (80.0-96.0); PLATELET COUNT, AUTOMATED 178 10^3/uL (150-450); RED BLOOD COUNT 3.57 10^6/uL (4.30-6.10); WHITE BLOOD COUNT 6.3 10^3/uL (4.0-10.0)
[2024-07-18 13:51] LABS: ALBUMIN 3.3 G/DL (3.2-5.2); BILIRUBIN,TOTAL 0.7 MG/DL (0.3-1.2); CALCIUM LEVEL 9.3 MG/DL (8.3-10.6); CREATININE FOR GFR 1.97 MG/DL (0.70-1.30); GLOMERULAR FILTRATION RATE 35.3 (>42); TOTAL PROTEIN 7.7 G/DL (5.7-8.2)
== END ==
LOC: M SHH 12:58
PROVIDERS: ATTEND Physician Assistant Medical
DX: I50.20 Unspecified systolic (congestive) heart failure (principal); I27.21 Secondary pulmonary arterial hypertension

== ENCOUNTER → 2024-07-25 | Outpatient (REF) | payer MEDICARE, OTHER ==
[2024-07-25 14:08] LABS: HEMATOCRIT 34.7 % (42.0-52.0); MEAN CORPUSCULAR HEMOGLOBIN 30.1 pg (27.0-33.0); MEAN CORPUSCULAR HGB CONC 31.7 g/dl (32.0-36.5); MEAN CORPUSCULAR VOLUME 94.8 fl (80.0-96.0); PLATELET COUNT, AUTOMATED 172 10^3/uL (150-450); RED BLOOD COUNT 3.66 10^6/uL (4.30-6.10); WHITE BLOOD COUNT 6.6 10^3/uL (4.0-10.0)
[2024-07-25 14:34] LABS: ALBUMIN 3.4 G/DL (3.2-5.2); BILIRUBIN,TOTAL 0.6 MG/DL (0.3-1.2); CALCIUM LEVEL 9.6 MG/DL (8.3-10.6); CREATININE FOR GFR 2.24 MG/DL (0.70-1.30); GLOMERULAR FILTRATION RATE 30.4 (>42); POTASSIUM SERUM 3.8 MMOL/L (3.5-5.1); TOTAL PROTEIN 8.4 G/DL (5.7-8.2)
== END ==
LOC: M SHH 13:30
PROVIDERS: ATTEND Physician Assistant Medical
DX: I27.21 Secondary pulmonary arterial hypertension (principal); I50.20 Unspecified systolic (congestive) heart failure

== ENCOUNTER 2024-10-10 12:49 | Inpatient (IN) | payer MEDICARE, OTHER ==
[~2024-10-10] VITALS: Ht 180.3 cm; Wt 90.8 kg
[2024-10-10 13:40] LABS: BASO % 0.7 % (0.0-1.0); EOS # 0.2 10^3/uL (0.0-0.5); EOS % 2.6 % (0.0-3.0); HEMATOCRIT 36.8 % (42.0-52.0); HEMOGLOBIN 11.4 g/dl (13.5-17.5); LYMPH # 0.4 10^3/uL (1.5-5.0); LYMPH % 6.7 % (24.0-44.0); MEAN CORPUSCULAR HEMOGLOBIN 29.6 pg (27.0-33.0); MEAN CORPUSCULAR VOLUME 95.6 fl (80.0-96.0); MONO # 0.3 10^3/uL (0.0-0.8); NEUTROPHILS % 84.7 % (36.0-66.0); PLATELET COUNT, AUTOMATED 141 10^3/uL (150-450); RED BLOOD COUNT 3.85 10^6/uL (4.30-6.10); WHITE BLOOD COUNT 5.9 10^3/uL (4.0-10.0)
[2024-10-10 13:53] LABS: INR 1.16; PARTIAL THROMBOPLASTIN TIME 35.7 SECONDS (24.8-34.2); PROTHROMBIN TIME 15.1 SECONDS (12.5-14.5)
[2024-10-10 14:06] LABS: CK-MB VALUE MASS 1.4 NG/ML (<3.6)
[2024-10-10 14:08] LABS: ALBUMIN 3.3 G/DL (3.2-5.2); BILIRUBIN,DIRECT 0.3 MG/DL (<0.4); BILIRUBIN,TOTAL 0.6 MG/DL (0.3-1.2); CALCIUM LEVEL 8.8 MG/DL (8.3-10.6); CREATININE FOR GFR 1.98 MG/DL (0.70-1.30); GLOMERULAR FILTRATION RATE 35.1 (>42); POTASSIUM SERUM 3.8 MMOL/L (3.5-5.1); TOTAL PROTEIN 7.6 G/DL (5.7-8.2)
[2024-10-10 14:10] LABS: FREE T4 1.27 NG/DL (0.89-1.76); THYROID STIMULATING HORMONE 11.531 uIU/ML (0.55-4.78)
[2024-10-10 14:13] LABS: MB/CK RELATIVE INDEX 2.64 (< OR =4)
[2024-10-10] MEDS: NS 250 ML IV ONE (14:30)
[2024-10-10 14:41] LABS: D-DIMER QUANT 0.99 ug/mL (<0.5)
[2024-10-10 14:56] LABS: CK-MB VALUE MASS 1.8 NG/ML (<3.6)
[2024-10-10 14:57] LABS: MB/CK RELATIVE INDEX 3.21 (< OR =4)
[2024-10-10 17:42] LABS: CK-MB VALUE MASS 2.2 NG/ML (<3.6)
[2024-10-10 17:43] LABS: MB/CK RELATIVE INDEX 3.66 (< OR =4)
[2024-10-10] MEDS ORDERED: VENTAER INH (19:57)
[2024-10-10] MEDS ORDERED: SPIR-10 PO (19:57)
[2024-10-10] MEDS ORDERED: MOM 30ML SUSPENSION UDC PO PRN (20:05)
[2024-10-10] MEDS ORDERED: ALBUTEROL SULFATE 2.5MG/0.5ML INH NEB SOLN NEB PRN (20:05)
[2024-10-10] MEDS ORDERED: ACETAMINOPHEN 325 MG TAB PO PRN (20:05)
[2024-10-10] MEDS ORDERED: MAALOX 30 ML SUSP *UDC PO PRN (20:05)
[2024-10-10 20:16] LABS: VENOUS BASE EXCESS -1.2 (-2.0-2.0); VENOUS HCO3 23.8 MMOL/L (23.0-27.0); VENOUS O2 SATURATION 88.9 % (60.0-80.0); VENOUS PARTIAL PRESSURE CO2 41.3 mmHg (38.0-50.0); VENOUS PARTIAL PRESSURE O2 55.9 mmHg (30.0-50.0); VENOUS PH 7.379 UNITS (7.330-7.430); VENOUS STANDARD HCO3 23.3 MMOL/L; VENOUS TOTAL CO2 25.1 MMOL/L (24.0-28.0)
[2024-10-10] MEDS ORDERED: CYCL10TA20 PO (20:29)
[2024-10-10] MEDS ORDERED: METO1TAB7 PO (20:29)
[2024-10-10] MEDS ORDERED: OXYC1TAB23 PO (20:29)
[2024-10-10] MEDS ORDERED: ASPI81CH33 PO (20:29)
[2024-10-10] MEDS ORDERED: VITATAB26 PO (20:34)
[2024-10-10] MEDS ORDERED: ECOT81TA5 PO (20:35)
[2024-10-10] MEDS ORDERED: MED REC COMMENT (20:37)
[2024-10-10] MEDS ORDERED: HOME MED LIST COMPLETE! XX SCH (20:40)
[2024-10-10 20:52] LABS: CK-MB VALUE MASS 2.9 NG/ML (<3.6)
[2024-10-10 20:54] LABS: MAGNESIUM LEVEL 1.7 MG/DL (1.8-2.4)
[2024-10-10 20:55] LABS: MB/CK RELATIVE INDEX 4.02 (< OR =4)
[2024-10-10 21:01] LABS: PROCALCITONIN 0.21 ng/ml
[2024-10-10 22:12] VITALS: BP 134/66; TEMP 97.7; O2SAT 95
[2024-10-10] MEDS: TERAZOSIN 1 MG CAP PO SCH (23:32)
[2024-10-10] MEDS: DOCUSATE SODIUM 100MG CAPSULE PO SCH (23:32)
[2024-10-10] MEDS: ATORVASTATIN 20 MG TAB PO SCH (23:33)
[2024-10-10] MEDS: FERROUS GLUCONATE 324 MG TAB PO SCH (23:33)
[2024-10-10] MEDS: MAGNESIUM OXIDE 400MG TAB (MAG-OX) PO ONE (23:35)
[2024-10-10 23:37] VITALS: BP 113/66; TEMP 98.1; O2SAT 94
[2024-10-11] VITALS (24 sets, daily range): BP systolic 96–146; BP diastolic 54–67; TEMP 96.8–98.4; O2SAT 89–100
[2024-10-11] MEDS: IPRATROPIUM 0.5MG/ALBUTEROL 2.5MG INH SOL UD 3ML (DUONEB) NEB SCH (01:27)
[2024-10-11 06:36] LABS: HEMOGLOBIN 10.2 g/dl (13.5-17.5); MEAN CORPUSCULAR HEMOGLOBIN 29.2 pg (27.0-33.0); MEAN CORPUSCULAR VOLUME 97.4 fl (80.0-96.0); PLATELET COUNT, AUTOMATED 118 10^3/uL (150-450); RED BLOOD COUNT 3.49 10^6/uL (4.30-6.10); WHITE BLOOD COUNT 4.3 10^3/uL (4.0-10.0)
[2024-10-11 06:58] LABS: ALBUMIN 2.9 G/DL (3.2-5.2); BILIRUBIN,TOTAL 0.5 MG/DL (0.3-1.2); CALCIUM LEVEL 8.7 MG/DL (8.3-10.6); CREATININE FOR GFR 1.99 MG/DL (0.70-1.30); GLOMERULAR FILTRATION RATE 34.9 (>42); MAGNESIUM LEVEL 1.8 MG/DL (1.8-2.4); POTASSIUM SERUM 3.8 MMOL/L (3.5-5.1); TOTAL PROTEIN 6.8 G/DL (5.7-8.2)
[2024-10-11] MEDS: SPIRONOLACTONE 12.5MG PER 1/2 TABLET PO SCH (08:38)
[2024-10-11] MEDS: TORSEMIDE 20 MG TAB PO SCH (08:38)
[2024-10-11] MEDS: ASPIRIN 81MG ENTERIC TABLET PO SCH (08:38)
[2024-10-11] MEDS: METOPROLOL SUCC (TopROL XL) 50MG **XL** TAB PO SCH (08:38)
[2024-10-11] MEDS: PANTOPRAZOLE 40MG TAB (PROTONIX) PO SCH (08:38)
[2024-10-12 04:17] VITALS: BP 109/51; TEMP 97.9; O2SAT 100
[2024-10-12 07:31] VITALS: BP 136/67; TEMP 97.6; O2SAT 98
[2024-10-12 08:00] VITALS: O2SAT 91
[2024-10-12 08:18] VITALS: BP 136/67
[2024-10-12] MEDS ORDERED: ALBU2.5V10 NEB (09:51)
== END 2024-10-12 15:25 | disposition home health service (06) | DRG 189 ==
LOC: M ED 12:49 → EDBD 12:49 → M ED INP 20:04 → M PCU 22:07
PROVIDERS: ADMIT Student in an Organized Health Care Education/Training Program; ATTEND General Practice
PROC: B246ZZZ Ultrasonography of Right and Left Heart (ICD-10-PCS; principal; 2024-10-11)
DX: J96.11 Chronic respiratory failure with hypoxia (principal); I24.89 Other forms of acute ischemic heart disease; I50.32 Chronic diastolic (congestive) heart failure; I48.0 Paroxysmal atrial fibrillation; J84.112 Idiopathic pulmonary fibrosis; R55 Syncope and collapse; E78.5 Hyperlipidemia, unspecified; E11.22 Type 2 diabetes mellitus with diabetic chronic kidney disease; I27.23 Pulmonary hypertension due to lung diseases and hypoxia; N18.30 Chronic kidney disease, stage 3 unspecified; I27.81 Cor pulmonale (chronic); K21.9 Gastro-esophageal reflux disease without esophagitis; N40.0 Benign prostatic hyperplasia without lower urinary tract symptoms; Z79.82 Long term (current) use of aspirin; Z95.2 Presence of prosthetic heart valve; Z99.81 Dependence on supplemental oxygen; Z79.899 Other long term (current) drug therapy

== ENCOUNTER → 2025-02-16 | Outpatient (REF) | payer OTHER, MEDICARE ==
[~2025-02-16] MED LIST changes: +ALBU2.5V10 NEB; +ASPI81CH33 PO; +CYCL10TA20 PO; +ECOT81TA5 PO; +LIDO1ADH93 TOP; -LIDO5DIS41 TOP; +LISI40TA10 PO; -LISI40TA4 PO; +MED REC COMMENT; +METO1TAB7 PO; +OXYC1TAB23 PO; +SPIR-10 PO; +VITATAB26 PO
[2025-02-16 18:52] LABS: IRON (FE) 51.0 UG/DL (65-175); PERCENT SATURATION 21.1 % (19.7-50.0)
== END ==
LOC: M LAB REF 17:10
PROVIDERS: ATTEND Internal Medicine Nephrology
DX: D50.9 Iron deficiency anemia, unspecified (principal)

== ENCOUNTER 2025-07-30 12:40 | Inpatient (IN) | payer OTHER, MEDICARE ==
[~2025-07-30] VITALS: Ht 180.3 cm; Wt 90.9 kg
[2025-07-30 13:16] LABS: VENOUS BASE EXCESS -1.0 (-2.0-2.0); VENOUS HCO3 24.7 MMOL/L (23.0-27.0); VENOUS O2 SATURATION 94.3 % (60.0-80.0); VENOUS PARTIAL PRESSURE CO2 45.5 mmHg (38.0-50.0); VENOUS PARTIAL PRESSURE O2 75.9 mmHg (30.0-50.0); VENOUS PH 7.352 UNITS (7.330-7.430); VENOUS STANDARD HCO3 23.5 MMOL/L; VENOUS TOTAL CO2 26.1 MMOL/L (24.0-28.0)
[2025-07-30 13:21] LABS: BASO # 0.0 10^3/uL (0.0-0.2); BASO % 0.8 % (0.0-1.0); EOS # 0.2 10^3/uL (0.0-0.5); EOS % 4.4 % (0.0-3.0); LYMPH # 0.5 10^3/uL (1.5-5.0); LYMPH % 8.5 % (24.0-44.0); MONO # 0.4 10^3/uL (0.0-0.8); MONO % 7.2 % (2.0-8.0); NEUTROPHILS # 4.2 10^3/uL (1.5-8.5); NEUTROPHILS % 78.9 % (36.0-66.0); PLATELET COUNT, AUTOMATED 124 10^3/uL (150-450)
[2025-07-30 13:47] LABS: ALT/SGPT 11.0 U/L (7.0-40); AST/SGOT 20.0 U/L (<34); CALCIUM LEVEL 8.5 MG/DL (8.3-10.6); CARBON DIOXIDE LEVEL 25.0 MMOL/L (20-31); CHLORIDE LEVEL 104.0 MMOL/L (98-107); CREATININE FOR GFR 3.59 MG/DL (0.70-1.30); GLOMERULAR FILTRATION RATE 16.6 (>42); POTASSIUM SERUM 4.5 MMOL/L (3.5-5.1); SODIUM LEVEL 139.0 MMOL/L (136-145)
[2025-07-30 14:14] LABS: KETONE, URINE AUTO RFX NEGATIVE (NEGATIVE); LEUKOCYTE ESTERASE UR AUTO RFX NEGATIVE (NEGATIVE); NITRITE, URINE AUTO RFX NEGATIVE (NEGATIVE); RBC, URINE AUTO RFX 1 /HPF (0-3); SQUAM EPITHELIAL CELL UR AURFX 0 /HPF (0-6); WBC, URINE AUTO RFX 2 /HPF (0-3)
[2025-07-30 14:27] LABS: THYROXINE (T4) 5.8 UG/DL (4.5-10.9)
[2025-07-30] MEDS ORDERED: PANT20TA6 PO (14:36)
[2025-07-30] MEDS ORDERED: HOME MED LIST COMPLETE! XX SCH (14:40)
[2025-07-30] MEDS: FUROSEMIDE 40 MG/4 ML VIAL IV ONE (16:30)
[2025-07-30] MEDS ORDERED: GLUCAGON INJ 1 MG VIAL SC PRN (16:40)
[2025-07-30] MEDS ORDERED: DEXTROSE 50% 50 ML SYRINGE IV PRN (16:40)
[2025-07-30] MEDS ORDERED: GLUCOSE 4 GM CHEW PO PRN (16:40)
[2025-07-30 17:49] LABS: ESTIMATED AVERAGE GLUCOSE 123.0 MG/DL (60-110)
[2025-07-30] MEDS: INSULIN LISPRO (NovoLOG) PER UNIT SC SCH ×2 (18:35→21:00)
[2025-07-30 21:56] VITALS: BP 109/67; TEMP 98.5; O2SAT 92
[2025-07-30] MEDS: ATORVASTATIN 20 MG TAB PO SCH (22:35)
[2025-07-30] MEDS: DOCUSATE SODIUM 100 MG CAPSULE PO SCH (22:35)
[2025-07-30] MEDS: TERAZOSIN 1 MG CAP PO SCH (22:43)
[2025-07-30 23:55] VITALS: BP 102/56; TEMP 98.3; O2SAT 99
[2025-07-31] VITALS (8 sets, daily range): BP systolic 97–112; BP diastolic 52–74; TEMP 97.5–98.7; O2SAT 95–99
[2025-07-31] MEDS: FUROSEMIDE 40 MG/4 ML VIAL IV SCH (00:40)
[2025-07-31] MEDS: LEVOTHYROXINE 25 MCG TABLET (0.025MG) PO SCH (06:14)
[2025-07-31 06:25] LABS: PLATELET COUNT, AUTOMATED 117 10^3/uL (150-450)
[2025-07-31 06:39] LABS: CALCIUM LEVEL 8.5 MG/DL (8.3-10.6); CARBON DIOXIDE LEVEL 24 MMOL/L (20-31); CHLORIDE LEVEL 104 MMOL/L (98-107); CREATININE FOR GFR 3.73 MG/DL (0.70-1.30); GLOMERULAR FILTRATION RATE 15.9 (>42); MAGNESIUM LEVEL 1.6 MG/DL (1.8-2.4); PHOSPHORUS LEVEL 5.0 MG/DL (2.4-5.1); POTASSIUM SERUM 4.4 MMOL/L (3.5-5.1); SODIUM LEVEL 141 MMOL/L (136-145)
[2025-07-31] MEDS: PANTOPRAZOLE 20 MG TAB PO SCH (08:16)
[2025-07-31] MEDS: FOLIC ACID 1 MG TAB PO SCH (08:17)
[2025-07-31] MEDS: MAG SULF 1GM/100ML (MAG RUN) 1 GM in IV 1 EA IV SCH (08:19)
[2025-07-31 11:40] LABS: IRON (FE) 36 UG/DL (65-175); PERCENT SATURATION 14.8 % (19.7-50.0)
[2025-07-31 11:48] LABS: VITAMIN B12 LEVEL 600 PG/ML (211-911)
[2025-07-31] MEDS: FUROSEMIDE injection 100 MG, VIAL 2 BAG 13MM ADAPTER 1 EACH in NS 100 ML IV SCH (12:15)
[2025-07-31] MEDS: FERRIC CARBOXYMALTOSE INJ 750 MG, VIAL MATE ADAPTER 1 EACH in NS 100 ML IV ONE (13:50)
[2025-08-01] VITALS (9 sets, daily range): BP systolic 94–125; BP diastolic 53–69; TEMP 97.4–97.8; O2SAT 94–97
[2025-08-01 05:49] LABS: PLATELET COUNT, AUTOMATED 102 10^3/uL (150-450)
[2025-08-01 06:13] LABS: CALCIUM LEVEL 8.4 MG/DL (8.3-10.6); CARBON DIOXIDE LEVEL 25.0 MMOL/L (20-31); CHLORIDE LEVEL 104.0 MMOL/L (98-107); CREATININE FOR GFR 3.88 MG/DL (0.70-1.30); GLOMERULAR FILTRATION RATE 15.1 (>42); MAGNESIUM LEVEL 1.9 MG/DL (1.8-2.4); PHOSPHORUS LEVEL 5.2 MG/DL (2.4-5.1); POTASSIUM SERUM 4.6 MMOL/L (3.5-5.1); SODIUM LEVEL 142.0 MMOL/L (136-145)
[2025-08-01] MEDS: ASPIRIN 81 MG ENTERIC TABLET PO SCH (08:28)
[2025-08-01] MEDS ORDERED: SPIRONOLACTONE 12.5MG PER 1/2 TABLET PO SCH (09:00)
[2025-08-01] MEDS ORDERED: CLOBETASOL 0.05% TOP (17:56)
[2025-08-02 00:01] VITALS: BP 98/54; TEMP 97.8; O2SAT 92
[2025-08-02] MEDS: ACETAMINOPHEN *IV* 1,000 MG in IV 1 EA IV ONE (00:47)
[2025-08-02 03:42] VITALS: BP 96/52; TEMP 97.4; O2SAT 98
[2025-08-02 06:27] LABS: PLATELET COUNT, AUTOMATED 103 10^3/uL (150-450)
[2025-08-02 06:49] LABS: CALCIUM LEVEL 8.4 MG/DL (8.3-10.6); CARBON DIOXIDE LEVEL 27.0 MMOL/L (20-31); CHLORIDE LEVEL 101.0 MMOL/L (98-107); CREATININE FOR GFR 4.03 MG/DL (0.70-1.30); GLOMERULAR FILTRATION RATE 14.5 (>42); MAGNESIUM LEVEL 1.9 MG/DL (1.8-2.4); PHOSPHORUS LEVEL 4.9 MG/DL (2.4-5.1); POTASSIUM SERUM 4.6 MMOL/L (3.5-5.1); SODIUM LEVEL 138.0 MMOL/L (136-145)
[2025-08-02 07:30] VITALS: BP 101/57; TEMP 97.2; O2SAT 95
[2025-08-02 11:53] VITALS: BP 108/61; TEMP 97.4; O2SAT 92
[2025-08-02 15:44] VITALS: BP 102/60; TEMP 97.6; O2SAT 96
[2025-08-02] MEDS: SPIRONOLACTONE 12.5MG PER 1/2 TABLET PO SCH (17:38)
[2025-08-02] MEDS: TORSEMIDE 20 MG TAB PO SCH (17:39)
[2025-08-02 19:50] VITALS: BP 108/54; TEMP 97.5; O2SAT 94
[2025-08-02] MEDS: ACETAMINOPHEN *IV* 500 MG in IV 1 EA IV ONE (22:01)
[2025-08-03] VITALS (31 sets, daily range): BP systolic 45–140; BP diastolic 27–95; TEMP 97.4–97.8; O2SAT 59–100
[2025-08-03 06:11] LABS: PLATELET COUNT, AUTOMATED 127 10^3/uL (150-450)
[2025-08-03 06:37] LABS: CALCIUM LEVEL 8.5 MG/DL (8.3-10.6); CARBON DIOXIDE LEVEL 26.0 MMOL/L (20-31); CHLORIDE LEVEL 102.0 MMOL/L (98-107); CREATININE FOR GFR 4.15 MG/DL (0.70-1.30); GLOMERULAR FILTRATION RATE 14.0 (>42); MAGNESIUM LEVEL 1.8 MG/DL (1.8-2.4); PHOSPHORUS LEVEL 4.5 MG/DL (2.4-5.1); POTASSIUM SERUM 5.0 MMOL/L (3.5-5.1); SODIUM LEVEL 139.0 MMOL/L (136-145)
[2025-08-03] MEDS ORDERED: NOREPINEPHRINE 4 MG IN D5W 250 ML IVBAG (16 MCG/ML) As Ordered ONE (14:27)
[2025-08-03] MEDS ORDERED: MIDAZOLAM INJ 2 MG/2 ML VIAL As Ordered ONE (14:46)
[2025-08-03] MEDS: MIDAZOLAM INJ 2 MG/2 ML VIAL IV STA ×3 (14:51→16:08)
[2025-08-03 14:55] LABS: PLATELET COUNT, AUTOMATED 136 10^3/uL (150-450)
[2025-08-03] MEDS ORDERED: VASOPRESSIN IN 0.9 % NACL 20UNIT/100ML INFUS.BTL As Ordered ONE (15:15)
[2025-08-03 15:17] LABS: CALCIUM LEVEL 8.9 MG/DL (8.3-10.6); CARBON DIOXIDE LEVEL 25.0 MMOL/L (20-31); CHLORIDE LEVEL 100.0 MMOL/L (98-107); CK-MB VALUE MASS 2.7 NG/ML (<3.6); CPK CREATINE PHOSPHOKINASE 51.0 U/L (46-171); CREATININE FOR GFR 4.1 MG/DL (0.70-1.30); GLOMERULAR FILTRATION RATE 14.2 (>42); MAGNESIUM LEVEL 2.0 MG/DL (1.8-2.4); MB/CK RELATIVE INDEX 5.29 (< OR =4); PHOSPHORUS LEVEL 4.7 MG/DL (2.4-5.1); POTASSIUM SERUM 5.3 MMOL/L (3.5-5.1); SODIUM LEVEL 137.0 MMOL/L (136-145)
[2025-08-03] MEDS ORDERED: FENTANYL DRIP LOCK BOX KEY 1 EACH XX PRN (15:20)
[2025-08-03] MEDS ORDERED: fentaNYL CITRATE/NaCl 1,000 MCG in IV 1 EA IV SCH (15:20)
[2025-08-03] MEDS ORDERED: ROCURONIUM BROMIDE 50MG/5ML VIAL As Ordered ONE (15:32)
[2025-08-03] MEDS ORDERED: PHENYLEPHRINE 10MG/ML 1ML VIAL As Ordered ONE (15:41)
[2025-08-03 16:06] LABS: ABG BASE EXCESS -9.6 (-2.0-2.0); ABG HCO3 18.8 MMOL/L (22.0-26.0); ABG O2 SATURATION 66.8 % (95.0-99.0); ABG PARTIAL PRESSURE CO2 53.1 mmHg (35.0-45.0); ABG STANDARD HCO3 16.2 MMOL/L. (22.0-26.0); ABG TOTAL CO2 20.5 MMOL/L (23.0-31.0)
[2025-08-03] MEDS: SODIUM BICARBONATE 8.4% INJ 50ML SYRINGE IV ONE ×2 (16:07)
[2025-08-03] MEDS: ROCURONIUM BROMIDE 50MG/5ML VIAL IV STA (16:07)
[2025-08-03 16:08] LABS: ABG PARTIAL PRESSURE O2 42.8 mmHg (75.0-100.0); ABG pH (ARTERIAL) 7.168 UNITS (7.350-7.450)
[2025-08-03] MEDS: NS (Normal Saline) 0.9% 1,000 ML IV ONE (16:09)
[2025-08-03] MEDS: NOREPINEPHRINE 4MG IN D5 250ML 4 MG in IV 1 EA IV SCH (16:10)
[2025-08-03] MEDS: PHENYLEPHRINE HCL INJ 50 MG in D5W 495 ML IV SCH (16:10)
[2025-08-03] MEDS ORDERED: VASOPRESSIN IN 0.9 % NACL 20 UNIT in IV 1 EA IV SCH (16:15)
[2025-08-03] MEDS ORDERED: EPINEPHrine 1 MG/10 ML SYRINGE 1.5IN ONE ×2 (18:30)
== END 2025-08-03 18:31 | disposition expired | DRG 291 ==
LOC: M ED 12:40 → M ED INP 12:41 → M PCU 21:47 → OBSVTOIN 07-31 10:19 → M ICU 08-03 14:41
PROVIDERS: ADMIT Family Medicine; ATTEND Internal Medicine
PROC: B246ZZZ Ultrasonography of Right and Left Heart (ICD-10-PCS; principal; 2025-07-31)
DX: I50.33 Acute on chronic diastolic (congestive) heart failure (principal); J96.21 Acute and chronic respiratory failure with hypoxia; J96.02 Acute respiratory failure with hypercapnia; N17.9 Acute kidney failure, unspecified; N13.8 Other obstructive and reflux uropathy; E11.22 Type 2 diabetes mellitus with diabetic chronic kidney disease; I27.81 Cor pulmonale (chronic); E03.9 Hypothyroidism, unspecified; I27.20 Pulmonary hypertension, unspecified; D63.1 Anemia in chronic kidney disease; E78.5 Hyperlipidemia, unspecified; I48.0 Paroxysmal atrial fibrillation; J84.112 Idiopathic pulmonary fibrosis; N18.32 Chronic kidney disease, stage 3b; N40.1 Benign prostatic hyperplasia with lower urinary tract symptoms; L40.9 Psoriasis, unspecified; C88.00 Waldenstrom macroglobulinemia not having achieved remission; D69.6 Thrombocytopenia, unspecified; D50.9 Iron deficiency anemia, unspecified; K21.9 Gastro-esophageal reflux disease without esophagitis; D47.2 Monoclonal gammopathy; E83.42 Hypomagnesemia; Z99.81 Dependence on supplemental oxygen; R57.0 Cardiogenic shock; I46.9 Cardiac arrest, cause unspecified; Z95.2 Presence of prosthetic heart valve; Z87.891 Personal history of nicotine dependence; Z79.82 Long term (current) use of aspirin; Z79.899 Other long term (current) drug therapy